=== PATIENT | female | born 1945 | race Caucasian/White ===

== ENCOUNTER 2024-06-29 09:21 | Emergency (ER) | payer MEDICARE, SELFPAY ==
--- NOTE | ~2024-06-29 | CT_ITS ---
EXAMINATION: CT lumbar spine wo con DATE: 06/29/2024 10:48 INDICATION: Left-sided low back pain. TECHNIQUE: Computed tomography (CT) of the lumbar spine was performed without intravenous contrast. A utomated exposure control and iterative reconstruction technique were employed. The dose-length produ ct was 1119.61 mGy-cm. COMPARISON: Lumbar spine MRI 12/25/2017 FINDINGS: There are surgical changes of the stomach. There is a 3.4 cm mass in right kidney containin g fat, consistent with an angiomyolipoma. There is a 3 mm stone in right kidney. There is a 2 mm ston e in left kidney. There is calcified atherosclerosis of the aorta and many of the other arteries. The re is 13 degrees dextroscoliosis of lumbar spine. There is 3 mm retrolisthesis of L2 on L3 and L3 on L4 and 4 mm anterolisthesis of L4 on L5. Vertebral body heights are normal. There is severely decreas ed disc height from T11-T12 through L2-L3 and moderately decreased disc height at L3-L4 and L4-L5. Th e following disc levels are specifically discussed: L1-L2: The disc is bulging. There is moderate bilateral facet joint osteoarthritis. There is mild vanessa ateral neural foraminal stenosis. There is mild central canal stenosis. L2-L3: The disc is bulging. There is mild bilateral facet joint osteoarthritis. There is mild right a nd moderate left neural foraminal stenosis. There is mild central canal stenosis. L3-L4: The disc is bulging. There is mild bilateral facet joint osteoarthritis. There is mild bilater al neural foraminal stenosis. There is mild central canal stenosis. L4-L5: The disc is bulging. There is severe bilateral facet joint osteoarthritis. There is moderate r ight and mild left neural foraminal stenosis. There is mild central canal stenosis. L5-S1: The disc is bulging. There is severe bilateral facet joint osteoarthritis. There is mild right neural foraminal stenosis. There is mild central canal stenosis. IMPRESSION: 1. Severe lumbar spondylosis. 2. Lumbar dextroscoliosis. Reviewed, dictated and finalized at location A.
[2024-06-29 09:21] VITALS: BP 178/69; PULSE 97; RESP 16; TEMP 36.8; O2SAT 96
--- NOTE | 2024-06-29 09:57 | ED.LOWEXIN ---
HPI - Extremity Injury (Lower) General Chief Complaint: Extremity Injury, Lower Stated Complaint: LLE pain Time Seen by Provider: 06/29/24 09:53 Source: patient Mode of arrival: ambulatory Limitations: no limitations History of Present Illness HPI Narrative: 78 year old presents with left lower leg pain. She has been having knee pain for some time and had xrays done at the end of March and has an appointment to establish with Dr Camacho /orthopedic surgery coming up in 1 week on Monday but Monday started having pain in her left lower back and buttock which travels down into the leg. No trauma or particular injury. No prior surgeries in tthis leg. Denies abdominal pain. Has Rx for Tramadol ER and IR at home and took a dose of Tramadol ER ta 5:40am. Also has Tylenol arthritis, last dose of this medicine at 8pm. No history of UTI, pyelonephritiis, or kidney stones. Has trialed ice. Denies dysuria or hematuria; some urgency and frequency. Related Data Allergies Allergy/AdvReac Type Severity Reaction Status Date / Time Sulfa (Sulfonamide Allergy Mild RASH Verified 12/01/16 11:04 Antibiotics) Penicillins Allergy Unknown Verified 12/11/14 10:14 sulfanilamide Allergy Unknown Verified 12/11/14 10:14 [facility] Family History Family History (Updated 06/17/16 @ 23:19 by DOCTOR UNKNOWN) Mother Carcinoma of colon Family history of coronary artery disease Family history of malignant neoplasm of breast in first degree relative Father Family history of coronary artery disease Social History Social History Smoking status: Never smoker Alcohol intake: current Exam Narrative: GENERAL: Well-appearing, well-nourished, and in no acute distress. Laying on right side. HEAD: Normocephalic, atraumatic. EYES: Non injected, non icteric ENT: Nares clear, no rhinorrhea or epistaxis. NECK: Supple. CHEST: Speaking in full sentences. No respiratory distress. HEART: Regular rate and rhythm. . ABDOMEN: Soft, nondistended. EXTREMITIES/BACK: No edema. No midline TTP of lumbar/sacral spine; no bony step offs. No paraspinal tenderness or spasm. Patient indicates pain is in left gluteus and throughout left thigh. Legs grossly symmetric. : No CVA tenderness. SKIN: Warm, dry, no rash. NEURO: No focal deficits. Alert and oriented x3. PSYCH: Normal mood and affect. Course Vital Signs Vital signs: Vital Signs Temperature 98.2 F 06/29/24 09:21 Pulse Rate 97 06/29/24 09:21 Respiratory Rate 16 06/29/24 09:21 Blood Pressure 178/69 H 06/29/24 09:21 Pulse Oximetry 96 06/29/24 09:21 Temperature 98.2 F 06/29/24 09:21 Pulse Rate 97 06/29/24 09:21 Respiratory Rate 16 06/29/24 09:21 Blood Pressure 178/69 H 06/29/24 09:21 Pulse Oximetry 96 06/29/24 09:21 MDM - Extremity Injury (Lower) MDM Narrative Medical decision making narrative: Patient presents with what had just been knee pain since March but is now left low back/buttock/leg pain. In the emergency department vital signs show patient is afebrile but with hypertension. Distribution of patient's symptoms is consistent with sciatic nerve distribution. She describes some urinary urgency/frequency and initially describes L flank pain but points to an area much lower on back and has no cva tenderness. In addition, UA unremarkable thus lower suspicion for pyelonephritis or kidney stone. No abdominal pain to suggest aortic/vascular. Afebrile and non toxic appearing thus low suspicion for spinal epidural abscess. Back has no deformities, external skin changes, or signs of trauma. No tenderness is noted on palpation of the spinous processes which are midline. Lumbar paraspinal muscles are not tender under without spasm. However, given age will obtain imaging. This is negative for acute process. Patient encouraged to continue to use multimodal pain strategy to subsequently allow for movement to perform ADLs and perform gentle stretching exercises. Patien
[2024-06-29 10:40] LABS: Add Urine Microscopic? NO; Appearance Urine Clear (Clear); Bilirubin Urine Negative (Negative); Blood Urine Negative (Negative); Color Urine Yellow (Yellow); Glucose Urine UA Negative (Negative); Ketones Urine Negative (Negative); Leukocyte Esterase Ur Negative LEU/UL (Negative); Nitrate Urine Negative (Negative); Protein Urine Negative (Negative); Specific Grav Ur 1.016 (1.001-1.035); pH Urine 5.5 (5.0-9.0)
[2024-06-29] MEDS: HYDROcodone/acetaminophen (*CRX) 5-325 MG TABLET 1 TAB PO (11:09)
[2024-06-29] MEDS: KETOROLAC 30 MG/ML VIAL (*BKC) 15 MG IM (12:06)
[2024-06-29] MEDS: LIDOCAINE 5% PATCH 1 PATCH TRANSDERM (12:07)
== END 2024-06-29 12:15 | disposition home or self-care (01) ==
PROVIDERS: Emergency Provider Student in an Organized Health Care Education/Training Program; PCP Internal Medicine
DX: M54.42 Lumbago with sciatica, left side (principal); M47.816 Spondylosis without myelopathy or radiculopathy, lumbar region; M41.86 Other forms of scoliosis, lumbar region
CPT/HCPCS: 72131; 81003; 96372; 99284; A9270; J1885

== ENCOUNTER 2024-07-10 09:42 | Outpatient (CLI) | payer MEDICARE, SELFPAY ==
--- NOTE | ~2024-07-10 | XR_ITS ---
XR shoulder RT min 2V Ordering provider: Ciara Corona, [employer] History: . R shoulder pain for 2 weeks no injury . Comparison: September 15, 2016 FINDINGS: BONES: No acute fracture or dislocation. JOINT SPACES: The acromioclavicular joint is normal. The glenohumeral joint is normal. SOFT TISSUES: Normal. IMPRESSION: No acute osseous abnormality right shoulder. Reviewed, dictated and finalized at location A.
== END 2024-07-10 09:43 ==
PROVIDERS: PCP Internal Medicine; Visit Provider Nurse Practitioner Family
DX: M25.511 Pain in right shoulder (principal)
CPT/HCPCS: 73030

== ENCOUNTER 2024-09-11 08:58 | Observation (INO) | payer MEDICARE, SELFPAY ==
[2024-09-11] VITALS (12 sets, daily range): BP systolic 131–156; BP diastolic 55–68; PULSE 83–99; RESP 16–20; TEMP 36.6–36.9; O2SAT 95–98; BMI 34.0
--- NOTE | ~2024-09-11 | CT_ITS ---
CTA chest PE protocol Ordering provider: Eva Robertson PA-C History: 79 years Female with . sob, pulmonary nodule . Comparison: None. Technique: CT angiogram chest was performed following timed intravenous injection of contrast. Thin s lice axial images and reformatted coronal images were obtained. Three dimensional reformatted images of the chest were also obtained using a [employer] workstation. . Automated exposure control and iterati ve reconstruction technique were employed. The dose-length product was 329.53 mGy-cm. 100 mL Omnipaqu e 350 was given. Findings: PULMONARY ARTERIES: Filling defects are seen in the right and left main branches of the pulmonary art [place] suggestive of pulmonary embolism. No definite right ventricular strain is noted.. VISUALIZED THORACIC INLET: Normal. MEDIASTINUM: Aorta/coronary arteries: Mild atheromatous disease. Heart/other: The heart is not enlarged. Lymph nodes: No mediastinal or hilar adenopathy. LUNGS: Nodule is seen in the right lower lobe measuring 1.1. Another one is also seen measuring 1.1 cm. 3 mo nths follow-up or PET scan is advised. Focal area of groundglass appearance is seen in the left lower lobe which may be a nodule or focal pneumonia. Follow-up advised. Infarct cannot be excluded. Tiny f ocal area of groundglass appearance seen in the right upper lobe. No infiltrates or effusions. No pne umothorax. VISUALIZED UPPER ABDOMEN: Fat containing a rounded lesion is seen in the right kidney upper pole debra uring 3.7 x 3.9 CNM. This may represent an angiomyolipoma. Postoperative changes in the stomach. Othe rwise, the visualized upper abdomen is normal. MUSCULOSKELETAL: Soft tissues: The superficial soft tissues are normal. Bones: Age appropriate degenerative changes of the spine. IMPRESSION: 1. Pulmonary embolism with thrombi in the distal main branches, segmental and subsegmental branches. No definite evidence of right ventricular strain. 2. Nodules in the right lower lobe. Follow-up CT in 3 months or PET scan is advised. 3. Groundglass area in the left lower lobe. Follow-up advised. 4. Fat-containing lesion in the right kidney which may indicate angiomyolipoma follow-up advised. Physician: Eva Robertson PA-C Was notified with the result of the patient at 11:28 AM on September 11, 2024. Reviewed, dictated and finalized at location A. IMPRESSION: 1. Pulmonary embolism with thrombi in the distal main branches, segmental and subsegmental branches. No definite evidence of right ventricular strain. 2. Nodules in the right lower lobe. Follow-up CT in 3 months or PET scan is ad vised. 3. Groundglass area in the left lower lobe. Follow-up advised. 4. Fat-containing lesion in the right kidney which may indicate angiomyolipoma follow-up advised. Physician: Eva Robertson PA-C Was notified with the result of the patient at 11:28 AM on September 11, 2024.
--- NOTE | ~2024-09-11 | XR_ITS ---
CHEST RADIOGRAPH, PA AND LATERAL CLINICAL HISTORY: sob, SWELLING OF LEGS . COMPARISON: None available TECHNIQUE: PA and lateral views of the chest. FINDINGS The cardiomediastinal silhouette is unremarkable. Indeterminate nodularity is detected within the right mid to lower lung field for which cross-section al imaging (noncontrast enhanced CT examination of the chest) is suggested for further evaluation. The remainder of the lungs are clear. Visualized osseous structures and soft tissues are unremarkable. IMPRESSION: Indeterminate nodularity is detected within the right mid to lower lung field for which cross-section al imaging (noncontrast enhanced CT examination of the chest) is suggested for further evaluation. Reviewed, dictated and finalized at location A. IMPRESSION: Indeterminate nodularity is detected within the right mid to lower lung field f or which cross-sectional imaging (noncontrast enhanced CT examination of the ch est) is suggested for further evaluation.
--- NOTE | ~2024-09-11 | US_ITS ---
EXAMINATION: US venous doppler [facility] DATE: 09/11/2024 10:39 INDICATION: Edema, bilateral leg swelling TECHNIQUE: Grayscale ultrasound images without and with compression and Doppler ultrasound images of the bilateral lower extremity veins were obtained. COMPARISON: None. FINDINGS: The visualized portions of right common femoral vein, profunda (deep) femoral vein, and femoral vein are patent and compressible. Greater saphenous vein outflow is patent. Noncompressibility and absence of flow is detected within the right popliteal, posterior tibial and p eroneal veins. Augmentation was deferred. The visualized portions of left common femoral vein, profunda femoral vein, femoral vein, popliteal v ein, peroneal veins, posterior tibial veins, and greater saphenous vein outflow are patent. IMPRESSION: 1. Noncompressibility and absence of flow within the right popliteal, posterior tibial and peroneal v eins, as detailed above. Findings discussed with BRDALY Velazquez caring for the patient in the emergency Department at 1045 o n 09/11/2024 Reviewed, dictated and finalized at location A. IMPRESSION: 1. Noncompressibility and absence of flow within the right popliteal, posterior tibial and peroneal veins, as detailed above. Findings discussed with BRADLY Velazquez caring for the patient in the emergenc y Department at 1045 on 09/11/2024
--- NOTE | 2024-09-11 09:07 | ECG_ITS ---
Test Date: 2024-09-11 09:10:53 Measurements Intervals [place] Rate: 88 P: 46 CT: 168 QRS: 2 QRSD: 86 T: 64 QT: 332 QTc: 402 Interpretive Statements SINUS RHYTHM ARTIFACT LIMITS INTERPRETATION CANNOT RULE OUT ANTEROSEPTAL INFARCTION, LIKELY OLD ABNORMAL ECG No previous ECG available for comparison Electronically Signed On 09-11-2024 10:24:35 CDT by Samy Macdonald M.D.
--- NOTE | 2024-09-11 09:16 | ED_ITS ---
HPI - SOB/Dyspnea General Chief Complaint: Shortness of Breath/Dyspnea <Eva Robertson PA-C - Last Filed: 09/11/24 11:51> Stated Complaint: sob, edema <SILVESTRE Mak Last Filed: 09/11/24 11:51> Time Seen by Provider: 09/11/24 09:12 <SILVESTRE Mak Last Filed: 09/11/24 11:51> Source: patient <SILVESTRE Mak Last Filed: 09/11/24 11:51> Mode of arrival: ambulatory <SILVESTRE Mak Last Filed: 09/11/24 11:51> Limitations: no limitations <SILVESTRE aMk Last Filed: 09/11/24 11:51> History of Present Illness HPI Narrative: This is an 79-year-old female that presents to the emergency department for shortness of breath. Reports she has had exertional shortness of breath over the last week. She has also had swelling in her legs. No known history of heart failure or CAD. Patient reports she travel to [place] a couple of weeks ago. Denies chest pain. <SILVESTRE Mak Last Filed: 09/11/24 11:51> Related Data Home Medications: Home Medications Medication Instructions Recorded Confirmed Adults Multivitamin 09/11/24 Calcium 600 with Vitamin D3 09/11/24 Nf Betahistine 8 mg QID 09/11/24 09/11/24 Vitamin B-12 09/11/24 Vitamin D3 09/11/24 allopurinol 100 mg tablet 100 mg DAILY 09/11/24 09/11/24 amlodipine 5 mg tablet mg 09/11/24 atorvastatin 10 mg tablet 10 mg 09/11/24 buspirone 5 mg tablet mg 09/11/24 famotidine 20 mg tablet mg 09/11/24 levothyroxine 75 mcg tablet 75 mcg 09/11/24 tramadol 200 mg tablet,extended 200 mg PO 09/11/24 release 24 hr tramadol 50 mg tablet 50 mg 09/11/24 triamterene 37.5 cap 09/11/24 mg-hydrochlorothiazide 25 mg capsule <SILVESTRE Mak Last Filed: 09/11/24 11:51> Allergies/Adverse Reactions: Allergies Allergy/AdvReac Type Severity Reaction Status Date / Time Sulfa (Sulfonamide Allergy Mild RASH Verified 12/01/16 11:04 Antibiotics) Penicillins Allergy Unknown Verified 12/11/14 10:14 sulfanilamide Allergy Unknown Verified 12/11/14 10:14 <Eva Robertson PA-C - Last Filed: 09/11/24 11:51> Review of Systems Review of Systems: CONSTITUTIONAL: Denies fever CARDIOVASCULAR: Reports edema. Denies chest pain RESPIRATORY: Reports dyspnea. <Eva Robertson PA-C - Last Filed: 09/11/24 11:51> All systems reviewed & are unremarkable except as noted in HPI and below <Eva Robertson PA-C - Last Filed: 09/11/24 11:51> [facility] Past Medical History Medical History: Medical History Anemia, unspecified Duodenal stenosis Dyskinesia of esophagus Essential (primary) hypertension Gastroesophageal reflux disease Gastrojejunal ulcer Gout, unspecified Hypothyroidism, unspecified Menieres disease Mixed hyperlipidemia Osteoarthritis <Eva Robertson PA-C - Last Filed: 09/11/24 11:51> Surgical History Surgical History: Surgical History History of cholecystectomy History of esophagogastroduodenoscopy History of gastric bypass History of tonsillectomy History of tubal ligation History of uvulectomy <Eva Robertson PA-C - Last Filed: 09/11/24 11:51> Family History Family History: Family History Mother Carcinoma of colon Family history of coronary artery disease Family history of malignant neoplasm of breast in first degree relative Father Family history of coronary artery disease <Eva Robertson PA-C - Last Filed: 09/11/24 11:51> Social History Social History: Social History (Updated 09/11/24 @ 16:36 by Gris Hillman PA-C) Social History: Surrogate medical decision maker: Moisés Kate, son. Code status: Full code. Smoking status: Former smoker Tobacco type: cigarettes Smoking end date: 10/20/94 Alcohol intake: current Drinks per week: 0 Substance use: never Substance use type: does not use Do You Feel Safe in your Home?: Yes Lack of Transportation: No Lack of Food: Never True Current Housing: I Have Housing Concerned About Future Housing: No Difficulty Paying Gas/Electric Bills: No Difficulty Paying for Meds: No Currently Unemployed: No Education: Master's Degree or Higher Difficulty w/ Childcare or Family Care: No Additional living arrangements comments: The patient lives in [place]. 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 Spiritual care concerns: No <Eva Robertson PA-C - Last Filed: 09/11/24 11:51> Exam Narrative: GENERAL: Well-appearing, well-nourished, and in no acute distress. HEAD: Normocephalic, atraumatic. EYES: EOMI. ENT: Nares clear, no rhinorrhea or epistaxis. Mucous membranes moist. Oropharynx without tonsillar hypertrophy exudate or other lesions. NECK: Supple. No JVD CHEST: Clear to auscultation. No respiratory distress. No wheezes rales or rhonchi HEART: Regular rate and rhythm. No murmur heard. Normal peripheral pulses. EXTREMITIES: Normal range of motion. 2+ pitting edema to the bilateral lower extremities. Normal DP pulses SKIN: Warm, dry, no rash. NEURO: No focal deficits. Alert and oriented x3. PSYCH: Normal mood and affect <Eva Robertson PA-C - Last Filed: 09/11/24 11:51> Course Course Emergency Course: Patient was updated on her workup and recommendation for admission. <Eva Robertson PA-C - Last Filed: 09/11/24 11:51> LEAD QUALITY CONTROL TECHNICIAN/PA Physician Supervision This visit was performed by both a physician and an APC. I performed all aspects of the MDM as documented. <Franco Husain MD - Last Filed: 09/11/24 18:15> Consultations Consultation #1: Spoke with hospitalist about patient and workup who accepts admission <Eva Robertson PA-C - Last Filed: 09/11/24 11:51> Date: 09/11/24 <Eva Robertson PA-C - Last Filed: 09/11/24 11:51> Vital Signs Vital signs: Vital Signs Temperature 98 F 09/11/24 09:07 Pulse Rate 91 09/11/24 09:07 Respiratory Rate 20 09/11/24 09:07 Blood Pressure 149/64 H 09/11/24 09:07 Pulse Oximetry 97 09/11/24 09:07 Temperature 98.3 F 09/11/24 15:52 Pulse Rate 99 09/11/24 16:00 Respiratory Rate 18 09/11/24 15:52 Blood Pressure 135/55 L 09/11/24 15:52 Pulse Oximetry 96 09/11/24 15:52 Oxygen Delivery Room Air 09/11/24 09:09 <Eva Robertson PA-C - Last Filed: 09/11/24 11:51> Vital Signs Temperature 98 F 09/11/24 09:07 Pulse Rate 91 09/11/24 09:07 Respiratory Rate 20 09/11/24 09:07 Blood Pressure 149/64 H 09/11/24 09:07 Pulse Oximetry 97 09/11/24 09:07 Temperature 98.3 F 09/11/24 15:52 Pulse Rate 99 09/11/24 16:00 Respiratory Rate 18 09/11/24 15:52 Blood Pressure 135/55 L 09/11/24 15:52 Pulse Oximetry 96 09/11/24 15:52 Oxygen Delivery Room Air 09/11/24 09:09 <Franco Husain MD - Last Filed: 09/11/24 18:15> MDM - SOB/Dyspnea MDM Narrative Medical decision making narrative: Patient presents to the emergency department for shortness of breath and lower extremity edema. She is afebrile and nontoxic appearing. Oxygen saturation is normal on room air. She is not tachycardic. Patient does report recent travel to [place]. CBC and metabolic panel without concerning findings. Urine without evidence of infection. Chest x-ray shows indeterminate nodularity. BNP 2120. EKG without acute ST changes. Her baseline troponin is negative. She does not endorse any chest pain. Right lower extremity venous Doppler with evidence of DVT in the popliteal, posterior tibial peroneal veins. CTA chest obtained. Shows pulmonary embolism in the distal main branches, seg mental, and subsegmental branches. No evidence of heart strain. Patient was updated on her workup and recommendation for admission. Started on heparin drip. Spoke with hospitalist about patient and workup who accepts admission <Eva Robertson PA-C - Last Filed: 09/11/24 11:51> Differential Diagnosis Differential diagnosis: Likely congestive heart failure and pulmonary embolism <Eva Robertson PA-C - Last Filed: 09/11/24 11:51> Lab Data Attestation: I reviewed the patient's lab results. <Eva Robertson PA-C - Last Filed: 09/11/24 11:51> Result diagrams: 09/11/24 09:15 09/11/24 09:15 <Eva Robertson PA-C - Last Filed: 09/11/24 11:51> Labs: Lab Results 09/11/24 09/11/24 Range/Units 09:15 09:35 WBC 9.3 (4.5-10.0) K/mm3 RBC 3.77 L (4.2-5.4) M/mm3 Hgb 12.0 (12.0-15.0) g/dL Hct 38.0 (37.0-47.0) % MCV 100.8 H (80-100) fl MCH 31.8 (26-34) pg MCHC 31.6 L (32-36) g/dl RDW 14.6 H (11.5-14.5) % Plt Count 482 H (150-375) k/mm3 MPV 8.8 (7.4-10.4) fl Immature Gran % (Auto) 0.4 (0-0.5) % Neut % (Auto) 67.9 (45.5-73.1) % Lymph % (Auto) 21.3 (18.3-44.2) % [place] % (Auto) 8.3 (2.6-8.5) % Eos % (Auto) 1.9 (0-4.4) % Baso % (Auto) 0.2 (0.2-1.2) % Lymph # (Auto) 1.98 (0.9-3.2) K/mm3 [place] # (Auto) 0.8 H (0.1-0.6) K/mm3 Eos # (Auto) 0.2 (0-0.3) K/mm3 Baso # (Auto) 0.0 (0.0-0.1) K/mm3 Abs Immat Gran (auto) 0.04 H (0.00-0.031) K/mm3 Absolute Neuts (auto) 6.3 (1.3-6.7) K/mm3 Absolute Nucleated RBC 0.000 (0.0-0.012) K/mm3 Nucleated RBC % 0.0 (0.0-0.2) % PT 12.2 (11.1-14.7) Seconds INR 0.9 APTT 31.7 (22.3-36.8) Seconds Sodium 138 (137-145) mmol/L Potassium 4.0 (3.4-5.0) mmol/L Chloride 103 (98-107) mmol/L Carbon Dioxide 26 (22-30) mmol/L Anion Gap 9 (4-12) mmol/L BUN 13 (7-17) mg/dL Creatinine 1.00 (0.7-1.0) mg/dL Estim Creat Clear Calc 45 ml/min Estimated GFR 53 L (59 - ) Glucose 87 (65-110) mg/dL Calcium 9.4 (8.4-10.2) mg/dL Total Bilirubin 0.7 (0.2-1.3) mg/dL AST 30 (14-36) U/L ALT 20 (6-35) U/L Alkaline Phosphatase 143 H (38-126) U/L Troponin I 0.028 (0.000-0.034) ng/mL NT-Pro-B Natriuret Pep 2120 H (19.9-100) pg/mL Total Protein 8.0 (6.3-8.2) g/dL Albumin 4.1 (3.5-5.1) g/dL Urine Color Yellow (Yellow) Urine Appearance Clear (Clear) Urine pH 7.5 (5.0-9.0) Ur Specific [place] 1.010 (1.001-1.035) Urine Protein Negative (Negative) mg/dL Urine Glucose (UA) Negative (Negative) mg/dL Urine Ketones Negative (Negative) mg/dL Ur Blood (Man) Negative (Negative) Urine Nitrate Negative (Negative) Urine Bilirubin Negative (Negative) Urine Urobilinogen 1.0 (<2.0) mg/dL Leukocyte Esterase Rfl Trace H (Negative) DAJA/UL Urine RBC 0-2 (0-2) /hpf Urine WBC 0-5 (0-3) /hpf Ur Squamous Epith Cells None seen (Few) /hpf Urine Bacteria None seen /hpf Urine Casts 0-2 <Eva Robertson PA-C - Last Filed: 09/11/24 11:51> Lab Results 09/11/24 09/11/24 Range/Units 09:15 09:35 WBC 9.3 (4.5-10.0) K/mm3 RBC 3.77 L (4.2-5.4) M/mm3 Hgb 12.0 (12.0-15.0) g/dL Hct 38.0 (37.0-47.0) % MCV 100.8 H (80-100) fl MCH 31.8 (26-34) pg MCHC 31.6 L (32-36) g/dl RDW 14.6 H (11.5-14.5) % Plt Count 482 H (150-375) k/mm3 MPV 8.8 (7.4-10.4) fl Immature Gran % (Auto) 0.4 (0-0.5) % Neut % (Auto) 67.9 (45.5-73.1) % Lymph % (Auto) 21.3 (18.3-44.2) % [place] % (Auto) 8.3 (2.6-8.5) % Eos % (Auto) 1.9 (0-4.4) % Baso % (Auto) 0.2 (0.2-1.2) % Lymph # (Auto) 1.98 (0.9-3.2) K/mm3 [place] # (Auto) 0.8 H (0.1-0.6) K/mm3 Eos # (Auto) 0.2 (0-0.3) K/mm3 Baso # (Auto) 0.0 (0.0-0.1) K/mm3 Abs Immat Gran (auto) 0.04 H (0.00-0.031) K/mm3 Absolute Neuts (auto) 6.3 (1.3-6.7) K/mm3 Absolute Nucleated RBC 0.000 (0.0-0.012) K/mm3 Nucleated RBC % 0.0 (0.0-0.2) % PT 12.2 (11.1-14.7) Seconds INR 0.9 APTT 31.7 (22.3-36.8) Seconds Sodium 138 (137-145) mmol/L Potassium 4.0 (3.4-5.0) mmol/L Chloride 103 (98-107) mmol/L Carbon Dioxide 26 (22-30) mmol/L Anion Gap 9 (4-12) mmol/L BUN 13 (7-17) mg/dL Creatinine 1.00 (0.7-1.0) mg/dL Estim Creat Clear Calc 45 ml/min Estimated GFR 53 L (59 - ) Glucose 87 (65-110) mg/dL Calcium 9.4 (8.4-10.2) mg/dL Total Bilirubin 0.7 (0.2-1.3) mg/dL AST 30 (14-36) U/L ALT 20 (6-35) U/L Alkaline Phosphatase 143 H (38-126) U/L Troponin I 0.028 (0.000-0.034) ng/mL NT-Pro-B Natriuret Pep 2120 H (19.9-100) pg/mL Total Protein 8.0 (6.3-8.2) g/dL Albumin 4.1 (3.5-5.1) g/dL Urine Color Yellow (Yellow) Urine Appearance Clear (Clear) Urine pH 7.5 (5.0-9.0) Ur Specific [place] 1.010 (1.001-1.035) Urine Protein Negative (Negative) mg/dL Urine Glucose (UA) Negative (Negative) mg/dL Urine Ketones Negative (Negative) mg/dL Ur Blood (Man) Negative (Negative) Urine Nitrate Negative (Negative) Urine Bilirubin Negative (Negative) Urine Urobilinogen 1.0 (<2.0) mg/dL Leukocyte Esterase Rfl Trace H (Negative) DAJA/UL Urine RBC 0-2 (0-2) /hpf Urine WBC 0-5 (0-3) /hpf Ur Squamous Epith Cells None seen (Few) /hpf Urine Bacteria None seen /hpf Urine Casts 0-2 <Franco Husain MD - Last Filed: 09/11/24 18:15> Imaging Data Radiologist's impression: ITS Impressions Chest X-Ray 09/11/24 09:52 IMPRESSION: Indeterminate nodularity is detected within the right mid to lower lung field for which cross-sectional imaging (noncontrast enhanced CT examination of the chest) is suggested for further evaluation. Venous Doppler Study 09/11/24 10:44 IMPRESSION: 1. Noncompressibility and absence of flow within the right popliteal, posterior tibial and peroneal veins, as detailed above. Findings discussed with BRADLY Velazquez caring for the patient in the emergency Department at 1045 on 09/11/2024 Chest CTA 09/11/24 10:56 IMPRESSION: 1. Pulmonary embolism with thrombi in the distal main branches, segmental and subsegmental branches. No definite evidence of right ventricular strain. 2. Nodules in the right lower lobe. Follow-up CT in 3 months or PET scan is advised. 3. Groundglass area in the left lower lobe. Follow-up advised. 4. Fat-containing lesion in the right kidney which may indicate angiomyolipoma follow-up advised. Physician: Eva Robertson PA-C Was notified with the result of the patient at 11:28 AM on September 11, 2024. <Eva Robertson PA-C - Last Filed: 09/11/24 11:51> ECG Data EKG #1: ECG completion date: 09/11/24 <Eva Robertson PA-C - Last Filed: 09/11/24 11:51> EKG Interpretation: normal rate, sinus rhythm, no ST changes, normal QT and other (baseline artifact) <Eva Robertson PA-C - Last Filed: 09/11/24 11:51> Critical Care Time Critical Care Time Critical Care Time: Yes <Eva Robertson PA-C - Last Filed: 09/11/24 11:51> Total Critical Care Time: 35 <Eva Robertson PA-C - Last Filed: 09/11/24 11:51> Discharge Plan Discharge Clinical Impression: Pulmonary embolism Qualifiers: Pulmonary embolism type: multiple subsegmental (without acute cor pulmonale) Qualified Code(s): I26.94 - Multiple subsegmental thrombotic pulmonary emboli without acute cor pulmonale DVT (deep venous thrombosis) Qualifiers: DVT location: lower extremity Affected thrombotic vein of extremity: popliteal Chronicity: acute Laterality: right Qualified Code(s): I82.431 - Acute embolism and thrombosis of right popliteal vein <Eva Robertson PA-C - Last Filed: 09/11/24 11:51> Patient Disposition: Still a Patient <Eva Robertson PA-C - Last Filed: 09/11/24 11:51> Condition: Serious <Eva Robertson PA-C - Last Filed: 09/11/24 11:51>
[2024-09-11 09:26] LABS: Basophils Percent Auto 0.2 % (0.2-1.2); Eosinophils Absolute Auto 0.2 K/mm3 (0-0.3); Eosinophils Percent Auto 1.9 % (0-4.4); Immature Granulocyte Absolute 0.04 K/mm3 (0.00-0.031); Immature Granulocyte Percent A 0.4 % (0-0.5); Lymphocytes Absolute Auto 1.98 K/mm3 (0.9-3.2); Lymphocytes Percent Auto 21.3 % (18.3-44.2); Mean Corpuscular HGB Conc 31.6 g/dl (32-36); Mean Corpuscular Hemoglobin 31.8 pg (26-34); Mean Corpuscular Volume 100.8 fl (80-100); Mean Platelet Volume 8.8 fl (7.4-10.4); Monocytes Absolute Auto 0.8 K/mm3 (0.1-0.6); Monocytes Percent Auto 8.3 % (2.6-8.5); Neutrophils Absolute Auto 6.3 K/mm3 (1.3-6.7); Neutrophils Percent Auto 67.9 % (45.5-73.1); Platelet Count Result 482 k/mm3 (150-375); Red Blood Count 3.77 M/mm3 (4.2-5.4); Red Cell Distribution Width 14.6 % (11.5-14.5); White Blood Count 9.3 K/mm3 (4.5-10.0)
[2024-09-11 09:35] LABS: Alanine Aminotransferase 20 U/L (6-35); Albumin Level 4.1 g/dL (3.5-5.1); Alkaline Phosphatase 143 U/L (38-126); Anion Gap 9 mmol/L (4-12); Aspartate Amino Transferase 30 U/L (14-36); Bilirubin,Total 0.7 mg/dL (0.2-1.3); Blood Urea Nitrogen 13 mg/dL (7-17); Calcium 9.4 mg/dL (8.4-10.2); Carbon Dioxide 26 mmol/L (22-30); Chloride 103 mmol/L (98-107); Estimated CRCL calculation 45 ml/min; Estimated Glomerular Filt Rate 53; Glucose 87 mg/dL (65-110); Sodium 138 mmol/L (137-145)
[2024-09-11 09:36] LABS: INR 0.9; Prothrombin Time 12.2 Seconds (11.1-14.7)
[2024-09-11 09:37] LABS: Partial Thromboplastin Time 31.7 Seconds (22.3-36.8)
[2024-09-11 09:46] LABS: NT Pro B Type Natriuretic Pept 2120 pg/mL (19.9-100); Troponin I 0.028 ng/mL (0.000-0.034)
[2024-09-11 09:46] LABS: Add Urine Microscopic? YES; Appearance Urine Clear (Clear); Bacteria Urine None Seen /hpf; Bilirubin Urine Negative (Negative); Blood Urine Negative (Negative); Color Urine Yellow (Yellow); Glucose Urine UA Negative (Negative); Ketones Urine Negative (Negative); Leukocyte Esterase Ur Trace LEU/UL (Negative); Nitrate Urine Negative (Negative); Non Pathogenic Casts 0-2; Protein Urine Negative (Negative); RBC Urine 0-2 /hpf (0-2); Squamous Epithelial Cell Urine None Seen /hpf (Few); WBC Urine 0-5 /hpf (0-3); pH Urine 7.5 (5.0-9.0)
[2024-09-11] MEDS: HEPARIN SOD/D5W 100 UNITS/ML 25,000 UNITS/250 ML BAG 13 UNITS IV CONT (12:03)
[2024-09-11] MEDS: HEPARIN SODIUM 5,000 UNITS/ML VIAL 5500 UNITS IV PUSH (12:04)
--- NOTE | 2024-09-11 12:10 | ECHO_ITS ---
Patient Info Name: An Kate Age: 79 years : 1945 Gender: Female Ht: 65 in Wt: 205 lbs BSA: 2.10 m2 HR: 92 bpm BP: 144 / 65 mmHg Heart Rhythm: Sinus Rhythm Technical Quality: Fair Exam Date: 09/11/2024 2:07 PM Exam Location: Echo Lab Patient Status: Outpatient Admit Date: 09/11/2024 Staff Ordering Physician: Gris Hillman PA-C Chip Applying Machine Tender: Amando Burnett RDCS Attending Provider: Marvin Olvera MD Referring Physician: Rafy DOMINGUEZ; Exam Type: CA echo dop color flow w con Study Info Indications I26.01 - Septic pulmonary embolism with acute cor pulmonale Complete two-dimensional, color flow and Doppler transthoracic echocardiogram is performed with contrast to opacify the left ventricle and to improve the deliniation of the left ventricle endocardial borders. Contrast/Agitated Saline Contrast/Ag. Saline: Definity Amount: 2.00 ml Existing IV Access: Yes IV Access Condition: patent with no signs of infiltration Summary 1. Left ventricular chamber dimension is normal. 2. Left ventricular systolic function is normal, estimated at 65-70%. 3. There is mildly increased left ventricular wall thickness. 4. The left ventricular diastolic function is grade I diastolic dysfunction. 5. Right ventricular chamber dimension is normal. 6. Right ventricular systolic function is normal. 7. Left atrial chamber dimension is mildly enlarged. 8. There is severe aortic valve calcification. 9. There is moderate aortic valve stenosis. 10. There is mild mitral valve regurgitation. 11. There is mild to moderate tricuspid valve regurgitation. 12. Pulmonary hypertension, estimated pulmonary arterial systolic pressure is 54 mmHg. Left Ventricle Left ventricular chamber dimension is normal. Left ventricular systolic function is normal, estimated at 65-70%. There is mildly increased left ventricular wall thickness. The left ventricular diastolic function is grade I diastolic dysfunction. Right Ventricle Right ventricular chamber dimension is normal. Right ventricular systolic function is normal. Left Atria Left atrial chamber dimension is mildly enlarged. Right Atria Right atrial chamber dimension is normal. Atrial Septum Intact interatrial septum visualized by color flow imaging. Aortic Valve The aortic valve is probable trileaflet. There is moderate aortic valve stenosis. There is no aortic valve regurgitation. There is severe aortic valve calcification. Pulmonic Valve The pulmonic valve is not well visualized. There is no pulmonic regurgitation. Mitral Valve There is mild mitral valve regurgitation. The mitral valve annulus is mildly calcified. Tricuspid Valve There is mild to moderate tricuspid valve regurgitation. Pulmonary hypertension, estimated pulmonary arterial systolic pressure is 54 mmHg. Pericardium/Pleural There is no pericardial effusion. Inferior Vena Cava Normal inferior vena cava with <50% collapse upon inspiration consistent with elevated right atrial pressure, 8 mmHg. Aorta The aortic root size at the sinus of Valsalva is normal. Left Ventricular Outflow Tract Name Value Normal LVOT Doppler LVOT Peak Gradient 7 mmHg LVOT Mean Gradient 5 mmHg LVOT VTI 29.29 cm LVOT VTI/AV VTI Ratio 0.40 Pulmonic Valve Name Value Normal PV Doppler PV Peak Gradient 4 mmHg Mitral Valve Name Value Normal MV Doppler MV Decel [place] 457.31 cm/s2 MV PHT 0 s MV Area (PHT) 3.98 cm2 4.00-5.00 MV Diastolic Function MV E Peak Velocity 87.25 cm/s MV A Peak Velocity 134.74 cm/s MV E/A 0.65 MV Decel Time 0 s Tricuspid Valve Name Value Normal TV Regurgitation Doppler TR Peak Velocity 337.40 cm/s TR Peak Gradient 36 mmHg Estimated PAP/RSVP RA Pressure 8 mmHg <=5 PA Systolic Pressure 54 mmHg <36 RV Systolic Pressure 54 mmHg <36 Aorta Name Value Normal Ascending Aorta Ao Root Diameter (MM) 2.51 cm Ao Root Diam Index (MM) 1.20 cm/m2 Aortic Valve Name Value Normal AV Doppler AV Peak Velocity 341.09 cm/s AV Peak Gradient 37 mmHg AV Mean Gradient 20 mmHg AV VTI 72.96 cm Ventricles Name Value Normal LV Dimensions 2D/MM IVS Diastolic Thickness (2D) 1.20 cm 0.60-1.00 IVS Diastole Thickness (MM) 0.97 cm 0.60-0.90 LVID Diastole (2D) 3.90 cm 3.80-5.20 LVID Diastole (MM) 5.32 cm 3.80-5.20 LVIW Diastolic Thickness (2D) 1.01 cm 0.60-0.90 LVIW Diastolic Thickness (MM) 0.81 cm 0.60-0.90 LVID Systole (2D) 2.21 cm 2.20-3.50 LVID Systole (MM) 3.30 cm 2.20-3.50 LV Mass (2D Cubed) 141.02 g 67.00-162.00 LV Mass Index (2D Cubed) 0.01 g/cm2 0.00-0.01 Relative Wall Thickness (2D) 0.51 LV Mass (MM Cubed) 173.82 g 67.00-162.00 LV Mass Index (MM Cubed) 0.01 g/cm2 0.00-0.01 Relative Wall Thickness (MM) 0.30 LV Fractional Shortening/Ejection Fraction 2D/MM LV Fractional Shortening (2D) 44 % 27-45 LV Fractional Shortening (MM) 38 % 27-45 LV EF (MM Teicholz) 68 % 54-74 LV EF (2D Teicholz) 75 % 54-74 LV Diastolic Volume (4C MOD) 91.22 ml LV EF (4C MOD) 74 % LV Diastolic Volume (2C MOD) 93.33 ml LV EF (2C MOD) 78 % LV Diastolic Volume (BP MOD) 95.15 ml 46.00-106.00 LV Diastolic Volume Index (BP MOD) 0.05 l/m2 0.03-0.06 LV Systolic Volume (BP MOD) 22.99 ml 14.00-42.00 LV Systolic Volume Index (BP MOD) 0.01 l/m2 0.01-0.02 LV EF (BP MOD) 76 % 54-74 LV Diastolic Length (4C) 8.39 cm LV Systolic Length (4C) 6.28 cm LV Stroke Volume (4C MOD) 67.46 ml Atria Name Value Normal LA Dimensions LA Dimension (MM) 4.19 cm 2.70-3.80 LA Volume (4C A-L) 63.46 ml LA Volume (BP A-L) 48.44 ml RA Dimensions RA Area (4C) 16.42 cm2 <=18.00 Report Signatures
--- NOTE | 2024-09-11 12:10 | PM.IMHP ---
H&P: HPI History of Present Illness Date/Time: 09/11/24 12:10 Chief Complaint: Shortness of breath. Narrative: This is an 79-year-old female with history of hypertension, hyperlipidemia, hypothyroidism, Meniere's disease, gastroesophageal reflux disease, peptic ulcers, and gout who presented to the emergency department to the emergency department via private vehicle for evaluation of shortness of breath. The patient provides the following history. Last month she traveled to [place] and returned home on 08/21/2024. She noticed that she had a little bit of swelling in her legs after the trip which she blamed on not wearing her compression stockings as per usual. Sometime last week she noticed that her right lower leg felt warm and not long thereafter she developed dyspnea with exertion. It is to the point where she has to stop frequently to catch her breath when out running errands. She denies syncope, near syncope, chest pain, pleuritic pain, palpitations, calf pain, and sweats. No personal history of venous thromboembolism. She denies hormone use and has no history of malignancy. In the ED: She was afebrile on arrival with stable blood pressures and an SpO2 in the upper 90s on room air. CMP and CBC were pretty unremarkable. ProBNP was 2120 and troponin was 0.028. CTA of the chest showed pulmonary embolism at with thrombi in the distal main branches, segmental, and subsegmental branches with no definite evidence of right ventricular strain and nodules in the right lower lobe. Lower extremity venous Doppler ultrasounds showed DVTs in the right lower leg. EKG showed sinus rhythm with artifact, cannot rule out anteroseptal infarction, likely old. She was started on a heparin drip and is being admitted in this setting. Review of Systems Review of Systems: 12 systems were reviewed and are negative except for as per HPI. [facility] Past Medical History Medical History Anemia, unspecified Duodenal stenosis Dyskinesia of esophagus Essential (primary) hypertension Gastroesophageal reflux disease Gastrojejunal ulcer Gout, unspecified Hypothyroidism, unspecified Menieres disease Mixed hyperlipidemia Osteoarthritis Surgical History Surgical History History of cholecystectomy History of esophagogastroduodenoscopy History of gastric bypass History of tonsillectomy History of tubal ligation History of uvulectomy Family History Family History Mother Carcinoma of colon Family history of coronary artery disease Family history of malignant neoplasm of breast in first degree relative Father Family history of coronary artery disease Social History Social History (Updated 09/11/24 @ 16:36 by Gris Hillman PA-C) Social History: Surrogate medical decision maker: Moisés Kate, son. Code status: Full code. Smoking status: Former smoker Tobacco type: cigarettes Smoking end date: 10/20/94 Alcohol intake: current Drinks per week: 0 Substance use: never Substance use type: does not use Do You Feel Safe in your Home?: Yes Lack of Transportation: No Lack of Food: Never True Current Housing: I Have Housing Concerned About Future Housing: No Difficulty Paying Gas/Electric Bills: No Difficulty Paying for Meds: No Currently Unemployed: No Education: Master's Degree or Higher Difficulty w/ Childcare or Family Care: No Additional living arrangements comments: The patient lives in [place]. 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 Spiritual care concerns: No Meds Home Medications and Allergies Home Medications Medication Instructions Recorded Confirmed Type Adults Multivitamin 09/11/24 History Calcium 600 with Vitamin D3 09/11/24 History Nf Betahistine 8 mg QID 09/11/24 09/11/24 History Vitamin B-12 09/11/24 History Vitamin D3 09/11/24 History allopurinol 100 mg tablet 100 mg DAILY 09/11/24 09/11/24 History amlodipine 5 mg tablet mg 09/11/24 History atorvastatin 10 mg tablet 10 mg 09/11/24 History buspirone 5 mg tablet mg 09/11/24 History famotidine 20 mg tablet mg 09/11/24 History levothyroxine 75 mcg tablet 75 mcg 09/11/24 History tramadol 200 mg tablet,extended 200 mg PO 09/11/24 History release 24 hr tramadol 50 mg tablet 50 mg 09/11/24 History triamterene 37.5 cap 09/11/24 History mg-hydrochlorothiazide 25 mg capsule Allergies Allergy/AdvReac Type Severity Reaction Status Date / Time Sulfa (Sulfonamide Allergy Mild RASH Verified 12/01/16 11:04 Antibiotics) Penicillins Allergy Unknown Verified 12/11/14 10:14 sulfanilamide Allergy Unknown Verified 12/11/14 10:14 Vital Signs Vital Signs - 24 hr 09/11/24 09:07 09/11/24 09:09 09/11/24 10:51 Temperature 98 F Pulse Rate 91 88 Respiratory Rate 20 20 Blood Pressure 149/64 H 131/56 L Pulse Oximetry 97 98 95 Oxygen Delivery Room Air Exam Narrative: General: Well-developed female in the semi-Gresham position in bed in no acute distress. Weight: 80.6 kg. BMI: 34.0. HEENT: PERRL, EOMI. Sclera anicteric. Oral mucosa moist. Oropharynx clear. Neck: Supple. No jugular venous distention. Respiratory: Respirations are nonlabored and she is speaking in full sentences. Lungs are clear to auscultation bilaterally. Cardiovascular: Regular rate and rhythm with S1-S2. Gastrointestinal: Abdomen is soft, nontender, and nondistended with positive bowel sounds. Skin: Warm and dry. No rash or lesions on limited exam. Extremities: No cyanosis or clubbing. Lower legs are large with mild edema. Equivocal Homans sign on the right. No palpable knots or cords. Neurological: Alert. Cranial nerves 2-12 are grossly intact. No gross focal deficits to casual conversation. Psychiatric: Pleasant and cooperative with normal mood and affect. Judgment and insight intact. She is in good spirits. H&P: Results Labs Labs: Short CBC 09/11/24 Range/Units 09:15 WBC 9.3 (4.5-10.0) K/mm3 Hgb 12.0 (12.0-15.0) g/dL Hct 38.0 (37.0-47.0) % Plt Count 482 H (150-375) k/mm3 BMP 09/11/24 09:15 Sodium 138 Potassium 4.0 Chloride 103 Carbon Dioxide 26 BUN 13 Creatinine 1.00 Glucose 87 Calcium 9.4 Cardiac Enzymes 09/11/24 Range/Units 09:15 Troponin I 0.028 (0.000-0.034) ng/mL Liver Function 09/11/24 Range/Units 09:15 Total Bilirubin 0.7 (0.2-1.3) mg/dL AST 30 (14-36) U/L ALT 20 (6-35) U/L Alkaline Phosphatase 143 H (38-126) U/L Albumin 4.1 (3.5-5.1) g/dL Urine 09/11/24 Range/Units 09:35 Urine Color Yellow (Yellow) Urine Appearance Clear (Clear) Urine pH 7.5 (5.0-9.0) Ur Specific [place] 1.010 (1.001-1.035) Urine Protein Negative (Negative) mg/dL Urine Glucose (UA) Negative (Negative) mg/dL Imaging Chest X-Ray 09/11/24 09:52 IMPRESSION: 1. Indeterminate nodularity is detected within the right mid to lower lung field for which cross-sectional imaging (noncontrast enhanced CT examination of the chest) is suggested for further evaluation. Venous Doppler Study 09/11/24 10:44 IMPRESSION: 1. Noncompressibility and absence of flow within the right popliteal, posterior tibial and peroneal veins, as detailed above. Chest CTA 09/11/24 10:56 IMPRESSION: 1. Pulmonary embolism with thrombi in the distal main branches, segmental and subsegmental branches. No definite evidence of right ventricular strain. 2. Nodules in the right lower lobe. Follow-up CT in 3 months or PET scan is advised. 3. Groundglass area in the left lower lobe. Follow-up advised. 4. Fat-containing lesion in the right kidney which may indicate angiomyolipoma follow-up advised. Assessment and Plan Assessment and plan (1) Bilateral pulmonary embolism: Code(s): I26.99 - Other pulmonary embolism without acute cor pulmonale Status: Acute (2) Deep vein thrombosis of right lower extremity: Code(s): I82.401 - Acute embolism and thrombosis of unspecified deep veins of right lower extremity Status: Acute (3) Right lower lobe pulmonary nodule: Code(s): R91.1 - Solitary pulmonary nodule Status: Acute (4) Lesion of right [place] kidney: Code(s): N28.9 - Disorder of kidney and ureter, unspecified Status: Acute (5) Gastroesophageal reflux disease: Code(s): K21.9 - Gastro-esophageal reflux disease without esophagitis Status: Acute (6) Hypothyroidism, unspecified: Code(s): E03.9 - Hypothyroidism, unspecified Status: Acute (7) Essential (primary) hypertension: Code(s): I10 - Essential (primary) hypertension Status: Acute Plan The patient presented to the emergency department for evaluation of shortness of breath over the past 1 week as detailed in HPI. Labs, imaging, EKG, and all reports were personally reviewed. She was found to have bilateral pulmonary emboli and right lower extremity DVT. Likely provoked by recent travel to [place]. She has been started on a heparin drip. No definitive right ventricular strain noted on CT scan however an echocardiogram has been ordered. CT also shows nodules in the right lower lobe and a fat containing lesion in the right kidney for which follow-up is advised as an outpatient. Continue famotidine for history of GERD and remote history of gastric ulcers. Continue levothyroxine and check TSH. Blood pressures were reviewed and they have been stable. Her medications will be reviewed and resumed as appropriate. Findings and treatment plan were discussed with the patient. Questions were solicited and answered to satisfaction. The patient's medical management will be taken over by the hospitalist team in a.m. Quality VTE Prophylaxis VTE prophylaxis: pharmacologic ordered (on heparin drip) The patient has been admitted under observation status. Hospitalist MIPS Advance Care Plan I have confirmed that the patient's Advanced Care Plan is present, code status is documented, or surrogate decision maker is listed in patient medical record.: Yes Medication Reconciliation I have utilized all available resources to obtain, update and review the patients current medications (includes all prescriptions, OTC, herbals, cannabis, and nutritional supplements).: Yes
--- NOTE | 2024-09-11 12:12 | PC.NURSE ---
Report received from Thuy in ER @1211.
[2024-09-11 13:33] LABS: Troponin I 0.031 ng/mL (0.000-0.034)
[2024-09-11] MEDS: PERFLUTREN LIPID MICROSPHERES 1.5 ML VIAL DILUTED TO 10 ML TOTAL VOLUME IV PUSH (15:29)
--- NOTE | 2024-09-11 15:30 | IVDEFINITY ---
Prior to administration of IV Definity the patient was educated on the risks and benefits of the imaging enhancing agent including potential adverse side effects. The patient verbalized understanding. Allergies were verified. No exclusion criteria were identified and at least one of the following inclusion criteria were met: 1) physician request, 2) patient technically difficult to image (per the [place] [employer] guidelines of two or more segments not discernable within the apical view), or 3) questionable left ventricular function. ?
[2024-09-11 17:54] LABS: INR 0.9
[2024-09-11 17:56] LABS: Partial Thromboplastin Time 96.9 Seconds (22.3-36.8)
[2024-09-11 18:09] LABS: Troponin I 0.034 ng/mL (0.000-0.034)
[2024-09-11 23:25] LABS: Partial Thromboplastin Time 82.5 Seconds (22.3-36.8)
[2024-09-12] VITALS (19 sets, daily range): BP systolic 137–157; BP diastolic 55–69; PULSE 69–92; RESP 16–18; TEMP 36.7–37.3; O2SAT 93–98
[2024-09-12 05:08] LABS: Basophils Percent Auto 0.4 % (0.2-1.2); Eosinophils Absolute Auto 0.2 K/mm3 (0-0.3); Eosinophils Percent Auto 2.7 % (0-4.4); Hematocrit 32.4 % (37.0-47.0); Hemoglobin 10.4 g/dL (12.0-15.0); Immature Granulocyte Absolute 0.03 K/mm3 (0.00-0.031); Immature Granulocyte Percent A 0.4 % (0-0.5); Lymphocytes Absolute Auto 1.99 K/mm3 (0.9-3.2); Mean Corpuscular HGB Conc 32.1 g/dl (32-36); Mean Corpuscular Hemoglobin 32.3 pg (26-34); Mean Corpuscular Volume 100.6 fl (80-100); Mean Platelet Volume 8.9 fl (7.4-10.4); Monocytes Absolute Auto 0.6 K/mm3 (0.1-0.6); Monocytes Percent Auto 8.2 % (2.6-8.5); Neutrophils Absolute Auto 4.8 K/mm3 (1.3-6.7); Neutrophils Percent Auto 62.3 % (45.5-73.1); Platelet Count Result 410 k/mm3 (150-375); Red Blood Count 3.22 M/mm3 (4.2-5.4); Red Cell Distribution Width 14.3 % (11.5-14.5); White Blood Count 7.7 K/mm3 (4.5-10.0)
[2024-09-12 05:21] LABS: Partial Thromboplastin Time 106.2 Seconds (22.3-36.8)
[2024-09-12 05:25] LABS: Anion Gap 4 mmol/L (4-12); Blood Urea Nitrogen 10 mg/dL (7-17); Calcium 8.9 mg/dL (8.4-10.2); Carbon Dioxide 28 mmol/L (22-30); Chloride 106 mmol/L (98-107); Estimated CRCL calculation 45 ml/min; Estimated Glomerular Filt Rate 53; Glucose 89 mg/dL (65-110); Magnesium 1.8 mg/dL (1.6-2.3); Potassium 4.3 mmol/L (3.4-5.0); Sodium 138 mmol/L (137-145)
[2024-09-12] MEDS: LEVOTHYROXINE SODIUM 75 MCG TABLET PO (05:28)
[2024-09-12] MEDS: BETAHISTINE 8 EACH PO ×4 (07:00→22:51)
[2024-09-12] MEDS: HEPARIN SOD/D5W 100 UNITS/ML 25,000 UNITS/250 ML BAG 12 UNITS IV CONT (08:08)
--- NOTE | 2024-09-12 09:35 | PHAR ---
HOME MED Betahistine 8 mg; TAKE 1 CAPSULE BY MOUTH 4 TIMES A DAY. VERIFIED BY PHARMACY.
[2024-09-12] MEDS: allopurinoL 100 MG TABLET BY MOUTH (09:41)
[2024-09-12] MEDS: CALCIUM/VITAMIN D 500 MG/5 MCG (200 I.U.) TABLET PO (09:41)
[2024-09-12] MEDS: MULTIVITAMINS THERAPEUTIC TAB (*BKC) 1 TABLET PO (09:41)
[2024-09-12] MEDS: busPIRone HCL 5 MG TABLET PO (09:41)
[2024-09-12] MEDS: FAMOTIDINE 20 MG TABLET PO (09:41)
[2024-09-12] MEDS: TRIAMTERENE 37.5 MG/HCTZ 25 MG (MAXZIDE) TABLET 1 TAB PO (09:41)
[2024-09-12] MEDS: ATORVASTATIN 10 MG TABLET PO (09:41)
[2024-09-12] MEDS: amLODIPine BESYLATE 5 MG TABLET PO (09:42)
[2024-09-12 10:51] LABS: Partial Thromboplastin Time 70.5 Seconds (22.3-36.8)
--- NOTE | 2024-09-12 12:35 | PM.IMPN ---
Progress Note: A&P Assessment and Plan (1) Bilateral pulmonary embolism: Code(s): I26.99 - Other pulmonary embolism without acute cor pulmonale Status: Acute Assessment and Plan: No right heart strain. Continue Heparin drip Transition to Eliquis for discharge. Continue to monitor labs and VS. Care Coordination was consulted for anticoagulation approval. (2) Deep vein thrombosis of right lower extremity: Code(s): I82.401 - Acute embolism and thrombosis of unspecified deep veins of right lower extremity Status: Acute Assessment and Plan: See #1 (3) Right lower lobe pulmonary nodule: Code(s): R91.1 - Solitary pulmonary nodule Status: Acute Assessment and Plan: Newly found on CTA of chest. Pt will need follow up in [address] or PET scan as noted per Radiologist. Discharging provider should set up for pt. (4) Lesion of right [place] kidney: Code(s): N28.9 - Disorder of kidney and ureter, unspecified Status: Acute Assessment and Plan: Follow up advised with PCP upon discharge. (5) Gastroesophageal reflux disease: Code(s): K21.9 - Gastro-esophageal reflux disease without esophagitis Status: Chronic Assessment and Plan: Continue Famotidine. (6) Hypothyroidism, unspecified: Code(s): E03.9 - Hypothyroidism, unspecified Status: Chronic Assessment and Plan: Continue Levothyroxine (7) Essential (primary) hypertension: Code(s): I10 - Essential (primary) hypertension Status: Chronic Assessment and Plan: Continue Amlodipine Monitor pressures. Time Spent With Patient Time with patient: 25 - 35 minutes Subjective Date/time seen: 09/12/24 0900 Interval history: This very pleasant and active 79 year old female pt who was admitted with bilateral PE's and RLE DVT was examined at the bedside today in interval assessment. She remains on a Heparin drip at this time. ECHO was performed today and does not show heart strain. She has normal LVSF with EF of 65-70% and Grade 1 Diastolic Dysfunction. Troponins are flat, and she currently remains stable on room air. Care coordination has been consulted and will assist with setting up on Eliquis therapy for home. Pt without any new or acute complaints or symptoms. Review of Systems Review of Systems: All systems reviewed & are unremarkable except as noted in HPI and below Exam Narrative: General: Well-developed female in the semi-Gresham position in bed in no acute distress. HEENT: PERRL, EOMI. Sclera anicteric. Oral mucosa moist. Oropharynx clear. Neck: Supple. No jugular venous distention. Respiratory: Respirations are nonlabored and she is speaking in full sentences. Lungs are clear to auscultation bilaterally. Cardiovascular: Regular rate and rhythm with S1-S2. Gastrointestinal: Abdomen is soft, nontender, and nondistended with positive bowel sounds. Skin: Warm and dry. No rash or lesions on limited exam. Extremities: No cyanosis or clubbing. Lower legs are large with mild edema, R>L. Equivocal Homans sign on the right. No palpable knots or cords. Neurological: Alert. Cranial nerves 2-12 are grossly intact. No gross focal deficits to casual conversation. Psychiatric: Pleasant and cooperative with normal mood and affect. Judgment and insight intact. She is in good spirits. Objective Data Vital Signs Vital Signs: Vital Signs - 24 hr 09/11/24 13:06 09/11/24 15:52 09/11/24 14:00 Temperature 98.4 F 98.3 F Pulse Rate 93 95 96 Respiratory Rate 20 18 Blood Pressure 153/61 H 135/55 L Pulse Oximetry 96 96 Oxygen Delivery 09/11/24 16:00 09/11/24 18:00 09/11/24 20:00 Temperature Pulse Rate 99 90 Respiratory Rate Blood Pressure Pulse Oximetry Oxygen Delivery Room Air 09/11/24 20:00 09/11/24 20:24 09/11/24 22:00 Temperature 98.5 F Pulse Rate 95 90 83 Respiratory Rate 16 Blood Pressure 156/68 H Pulse Oximetry 98 Oxygen Delivery 09/12/24 00:00 09/12/24 00:17 09/12/24 00:00 Temperature 98.5 F Pulse Rate 83 85 82 Respiratory Rate 16 16 Blood Pressure 137/57 L Pulse Oximetry 98 94 Oxygen Delivery Room Air 09/12/24 02:00 09/12/24 03:49 09/12/24 03:52 Temperature 98.3 F Pulse Rate 76 76 88 Respiratory Rate 16 16 Blood Pressure 154/69 H Pulse Oximetry 94 98 Oxygen Delivery Room Air 09/12/24 04:00 09/12/24 06:00 09/12/24 07:59 Temperature 98.2 F Pulse Rate 77 82 87 Respiratory Rate 18 Blood Pressure 157/63 H Pulse Oximetry 98 Oxygen Delivery 09/12/24 11:22 Temperature 98.7 F Pulse Rate 91 Respiratory Rate 16 Blood Pressure 150/67 H Pulse Oximetry 95 Oxygen Delivery Intake/Output Intake/Output: Intake & Output 09/09/24 09/10/24 09/11/24 09/12/24 23:59 23:59 23:59 23:59 Intake Total 590.8 1219.2 Output Total 1450 1650 Balance -859.2 -430.8 Meds/Results Medications: Active Medications Generic Name Dose Route Start Last Admin Trade Name Freq PRN Reason Stop Dose Admin Acetaminophen 650 mg 09/11/24 12:30 Acetaminophen 325 Mg Tablet PO Q6H PRN Mild Pain (1-3) or Fever Allopurinol 100 mg 09/12/24 09:00 09/12/24 09:41 Allopurinol 100 Mg Tablet BY MOUTH 100 mg DAILY MARCO Administration Amlodipine Besylate 5 mg 09/12/24 09:00 09/12/24 09:42 Amlodipine Besylate 5 Mg Tablet PO 5 mg DAILY [facility] Administration Atorvastatin Calcium 10 mg 09/12/24 09:00 09/12/24 09:41 Atorvastatin 10 Mg Tablet PO 10 mg DAILY [facility]CO Administration Buspirone HCl 5 mg 09/12/24 09:00 09/12/24 09:41 Buspirone Hcl 5 Mg Tablet PO 5 mg DAILY [facility]CO Administration Calcium Carbonate 500 mg 09/12/24 09:00 09/12/24 09:41 Calcium/Vitamin D 500 Mg/5 Mcg (200 I.U.) Tablet PO 500 mg DAILY MAROC Administration Famotidine 20 mg 09/12/24 09:00 09/12/24 09:41 Famotidine 20 Mg Tablet PO 20 mg DAILY MARCO Administration Heparin Sodium (Porcine) 5,500 units 09/11/24 12:00 Heparin Sodium 5,000 Units/Ml Vial IV PUSH PRN PRN aPTT less than 55 seconds Heparin Sodium (Porcine) 3,000 units 09/11/24 12:00 Heparin Sodium 5,000 Units/Ml Vial IV PUSH PRN PRN aPTT 55 - 70 seconds Heparin Sodium/Dextrose 25,000 units in 250 mls @ 12 mls/hr 09/11/24 11:45 09/12/24 08:08 Heparin Sodium/D5w 100 Units/Ml IV CONT 1,200 units/hr .[id number] MARCO 12 mls/hr Administration Protocol 1,200 UNITS/HR Levothyroxine Sodium 75 mcg 09/12/24 06:30 09/12/24 05:28 Levothyroxine Sodium 75 Mcg Tablet PO 75 mcg DAILY@0630 [facility]CO Administration Miscellaneous Information 1 each 09/12/24 00:01 09/12/24 07:49 Med Rec Order Clarification XX 10/12/24 00:00 Not Given CLARIFY MARCO Miscellaneous Information 1 each 09/12/24 00:01 09/12/24 07:49 Med Rec Order Clarification XX 10/12/24 00:00 Not Given CLARIFY [facility] Multivitamins Therapeutic 1 tablet 09/12/24 09:00 09/12/24 09:41 Multivitamins Therapeutic Tab (*Bkc) PO 1 tablet DAILY [facility] Administration Betahistine 8 Mg 8 mg 09/12/24 09:35 09/12/24 12:08 Home Med PO 10/12/24 09:34 8 mg QID [facility]CO Administration Non-Formulary Medication 200 mg 09/12/24 09:00 Tramadol PO 10/12/24 08:59 DAILY [facility] Non-Formulary Medication 1 tablet 09/12/24 09:00 Vitamin D3 PO 10/12/24 08:59 DAILY [facility] Tramadol HCl 50 mg 09/11/24 20:04 Tramadol Hcl (*Crx) 50 Mg Tablet PO Q6HR PRN Breakthrough Pain Triamterene/Hydrochlorothiazide 1 tab 09/12/24 09:00 09/12/24 09:41 Triamterene 37.5 Mg/Hctz 25 Mg (Maxzide) Tablet PO 1 tab DAILY MARCO Administration Radiology Results: ITS Impressions Chest X-Ray 09/11/24 09:52 IMPRESSION: Indeterminate nodularity is detected within the right mid to lower lung field for which cross-sectional imaging (noncontrast enhanced CT examination of the chest) is suggested for further evaluation. Venous Doppler Study 09/11/24 10:44 IMPRESSION: 1. Noncompressibility and absence of flow within the right popliteal, posterior tibial and peroneal veins, as detailed above. Findings discussed with BRADLY Velazquez caring for the patient in the emergency Department at 1045 on 09/11/2024 Chest CTA 09/11/24 10:56 IMPRESSION: 1. Pulmonary embolism with thrombi in the distal main branches, segmental and subsegmental branches. No definite evidence of right ventricular strain. 2. Nodules in the right lower lobe. Follow-up CT in 3 months or PET scan is advised. 3. Groundglass area in the left lower lobe. Follow-up advised. 4. Fat-containing lesion in the right kidney which may indicate angiomyolipoma follow-up advised. Physician: Eva Robertson PA-C Was notified with the result of the patient at 11:28 AM on September 11, 2024. Labs Labs: Laboratory Results - last 24 hr 09/11/24 09/11/24 09/11/24 13:03 17:32 22:38 WBC RBC Hgb Hct MCV MCH MCHC RDW Plt Count MPV Immature Gran % (Auto) Neut % (Auto) Lymph % (Auto) [place] % (Auto) Eos % (Auto) Baso % (Auto) Lymph # (Auto) [place] # (Auto) Eos # (Auto) Baso # (Auto) Abs Immat Gran (auto) Absolute Neuts (auto) Absolute Nucleated RBC Nucleated RBC % PT 13.0 INR 0.9 APTT 96.9 H 82.5 H Sodium Potassium Chloride Carbon Dioxide Anion Gap BUN Creatinine Estim Creat Clear Calc Estimated GFR Glucose Calcium Magnesium Troponin I 0.031 0.034 09/12/24 09/12/24 04:44 10:33 WBC 7.7 RBC 3.22 L Hgb 10.4 L Hct 32.4 L MCV 100.6 H MCH 32.3 MCHC 32.1 RDW 14.3 Plt Count 410 H MPV 8.9 Immature Gran % (Auto) 0.4 Neut % (Auto) 62.3 Lymph % (Auto) 26.0 [place] % (Auto) 8.2 Eos % (Auto) 2.7 Baso % (Auto) 0.4 Lymph # (Auto) 1.99 [place] # (Auto) 0.6 Eos # (Auto) 0.2 Baso # (Auto) 0.0 Abs Immat Gran (auto) 0.03 Absolute Neuts (auto) 4.8 Absolute Nucleated RBC 0.000 Nucleated RBC % 0.0 PT INR APTT 106.2 H 70.5 H Sodium 138 Potassium 4.3 Chloride 106 Carbon Dioxide 28 Anion Gap 4 BUN 10 Creatinine 1.00 Estim Creat Clear Calc 45 Estimated GFR 53 L Glucose 89 Calcium 8.9 Magnesium 1.8 Troponin I Quality VTE Prophylaxis VTE prophylaxis: pharmacologic ordered (Heparin drip)
[2024-09-12 16:35] LABS: Partial Thromboplastin Time 76.2 Seconds (22.3-36.8)
[2024-09-13] VITALS (11 sets, daily range): BP systolic 120–157; BP diastolic 46–73; PULSE 70–91; RESP 14–18; TEMP 36.7–37; O2SAT 94–98
[2024-09-13] MEDS: LEVOTHYROXINE SODIUM 75 MCG TABLET PO (05:24)
[2024-09-13] MEDS: HEPARIN SOD/D5W 100 UNITS/ML 25,000 UNITS/250 ML BAG 12 UNITS IV CONT (05:25)
[2024-09-13 06:54] LABS: Basophils Percent Auto 0.3 % (0.2-1.2); Eosinophils Absolute Auto 0.2 K/mm3 (0-0.3); Eosinophils Percent Auto 2.8 % (0-4.4); Hematocrit 32.7 % (37.0-47.0); Hemoglobin 10.7 g/dL (12.0-15.0); Immature Granulocyte Absolute 0.02 K/mm3 (0.00-0.031); Immature Granulocyte Percent A 0.3 % (0-0.5); Lymphocytes Absolute Auto 1.63 K/mm3 (0.9-3.2); Lymphocytes Percent Auto 22.7 % (18.3-44.2); Mean Corpuscular HGB Conc 32.7 g/dl (32-36); Mean Corpuscular Hemoglobin 32.6 pg (26-34); Mean Corpuscular Volume 99.7 fl (80-100); Mean Platelet Volume 8.5 fl (7.4-10.4); Monocytes Absolute Auto 0.6 K/mm3 (0.1-0.6); Monocytes Percent Auto 8.4 % (2.6-8.5); Neutrophils Absolute Auto 4.7 K/mm3 (1.3-6.7); Neutrophils Percent Auto 65.5 % (45.5-73.1); Platelet Count Result 422 k/mm3 (150-375); Red Blood Count 3.28 M/mm3 (4.2-5.4); Red Cell Distribution Width 14.2 % (11.5-14.5); White Blood Count 7.2 K/mm3 (4.5-10.0)
[2024-09-13 07:05] LABS: Alanine Aminotransferase 14 U/L (6-35); Albumin Level 3.2 g/dL (3.5-5.1); Alkaline Phosphatase 108 U/L (38-126); Anion Gap 3 mmol/L (4-12); Aspartate Amino Transferase 32 U/L (14-36); Bilirubin,Total 0.8 mg/dL (0.2-1.3); Blood Urea Nitrogen 9 mg/dL (7-17); Calcium 8.8 mg/dL (8.4-10.2); Carbon Dioxide 27 mmol/L (22-30); Chloride 104 mmol/L (98-107); Estimated CRCL calculation 44 ml/min; Estimated Glomerular Filt Rate 53; Glucose 91 mg/dL (65-110); Magnesium 1.7 mg/dL (1.6-2.3); Potassium 4.1 mmol/L (3.4-5.0); Sodium 134 mmol/L (137-145)
[2024-09-13 07:10] LABS: Partial Thromboplastin Time 86.7 Seconds (22.3-36.8)
[2024-09-13] MEDS: CALCIUM/VITAMIN D 500 MG/5 MCG (200 I.U.) TABLET PO (08:45)
[2024-09-13] MEDS: TRIAMTERENE 37.5 MG/HCTZ 25 MG (MAXZIDE) TABLET 1 TAB PO (08:45)
[2024-09-13] MEDS: busPIRone HCL 5 MG TABLET PO (08:45)
[2024-09-13] MEDS: FAMOTIDINE 20 MG TABLET PO (08:46)
[2024-09-13] MEDS: CHOLECALCIFEROL 5,000 UNITS TABLET 5000 UNITS PO (08:46)
[2024-09-13] MEDS: allopurinoL 100 MG TABLET BY MOUTH (08:46)
[2024-09-13] MEDS: MULTIVITAMINS THERAPEUTIC TAB (*BKC) 1 TABLET PO (08:46)
[2024-09-13] MEDS: ATORVASTATIN 10 MG TABLET PO (08:46)
[2024-09-13] MEDS: BETAHISTINE 8 EACH PO ×3 (08:46→17:03)
[2024-09-13] MEDS: amLODIPine BESYLATE 5 MG TABLET PO (08:46)
[2024-09-13] MEDS: APIXABAN 5 MG TABLET 10 MG PO (14:50)
--- NOTE | 2024-09-13 16:03 | P.DS_ITS ---
DS: Admitting Diagnosis Discharge Date 09/13/2024 Admitting Diagnosis Bilateral Pulmonary Emboli, RLE DVT DS: Discharge Diagnosis Discharge Diagnosis (1) Bilateral pulmonary embolism: Code(s): I26.99 - Other pulmonary embolism without acute cor pulmonale Status: Acute (2) Deep vein thrombosis of right lower extremity: Code(s): I82.401 - Acute embolism and thrombosis of unspecified deep veins of right lower extremity Status: Acute (3) Right lower lobe pulmonary nodule: Code(s): R91.1 - Solitary pulmonary nodule Status: Acute (4) Lesion of right [place] kidney: Code(s): N28.9 - Disorder of kidney and ureter, unspecified Status: Acute (5) Gastroesophageal reflux disease: Code(s): K21.9 - Gastro-esophageal reflux disease without esophagitis Status: Chronic (6) Hypothyroidism, unspecified: Code(s): E03.9 - Hypothyroidism, unspecified Status: Chronic (7) Essential (primary) hypertension: Code(s): I10 - Essential (primary) hypertension Status: Chronic Plan Discharge Home. DS: Summary Hospital Course Reason for hospitalization: Dyspnea on Exertion, RLE edema. Hospital Course: Patient presented to the ER with reports on new dyspnea on exertion and RLE edema. Patient reported that she had recently taken a trip to [place] and symptoms started thereafter. Patient had CTA chest done that revealed bilateral pulmonary embolism, with her vanessa. LE venous duplex also showing a DVT to his RLE. A TTE did not reveal any heart strain and no embolus was seen in the heart as well. She was initially started on Heparin IV that has been transitioned to Eliquis. She reports her SOB has resolved and has no pain to her RLE. Patient appears medically stable for discharge on Eliquis and will follow-up with PCP for re-evaluation. No acute distress noted or reported prior to discharge. Status at Discharge Cognitive/behavioral status at discharge: Well oriented. Functional status at discharge: independent ambulation Overall status at discharge: patient is progressing back to baseline Time Spent with Patient Time attestation: Total time spent providing and/or coordinating discharge services: Time spent: Greater than 30 minutes Exam Narrative: General: Well-developed female in the semi-Gresham position in bed in no acute distress. HEENT: PERRL, EOMI. Sclera anicteric. Oral mucosa moist. Oropharynx clear. Neck: Supple. No jugular venous distention. Respiratory: Respirations are nonlabored and she is speaking in full sentences. Lungs are clear to auscultation bilaterally. Cardiovascular: Regular rate and rhythm, Grade II apical murmur. Chronic per patient. Gastrointestinal: Abdomen is soft, nontender, and nondistended with positive bowel sounds. Skin: Warm and dry. No rash or lesions on limited exam. Extremities: No cyanosis or clubbing. Lower legs are large with mild edema, R>L. Equivocal Homans sign on the right. No palpable knots or cords. Neurological: Alert. Cranial nerves 2-12 are grossly intact. No gross focal deficits to casual conversation. Psychiatric: Pleasant and cooperative with normal mood and affect. Judgment and insight intact. She is in good spirits. Psych: Mental Status: mental status grossly normal Affect: normal affect DS: Data Data Completed and Pending Labs on day of discharge: Labs from last 24 hours 09/13/24 09/12/24 06:48 16:14 WBC 7.2 RBC 3.28 L Hgb 10.7 L Hct 32.7 L MCV 99.7 MCH 32.6 MCHC 32.7 RDW 14.2 Plt Count 422 H MPV 8.5 Immature Gran % (Auto) 0.3 Neut % (Auto) 65.5 Lymph % (Auto) 22.7 [place] % (Auto) 8.4 Eos % (Auto) 2.8 Baso % (Auto) 0.3 Lymph # (Auto) 1.63 [place] # (Auto) 0.6 Eos # (Auto) 0.2 Baso # (Auto) 0.0 Abs Immat Gran (auto) 0.02 Absolute Neuts (auto) 4.7 Absolute Nucleated RBC 0.000 Nucleated RBC % 0.0 APTT 86.7 H 76.2 H Sodium 134 L Potassium 4.1 Chloride 104 Carbon Dioxide 27 Anion Gap 3 L BUN 9 Creatinine 1.00 Estim Creat Clear Calc 44 Estimated GFR 53 L Glucose 91 Calcium 8.8 Magnesium 1.7 Total Bilirubin 0.8 AST 32 ALT 14 Alkaline Phosphatase 108 Total Protein 6.0 L Albumin 3.2 L Discharge Plan Discharge Attending physician on discharge: Zeeshan Buckley Discharging Clinician: Sangeetha Mullins Anticipated Discharge Date/Time: 09/13/24 16:19 Patient Disposition: Home, Self-Care Activity: as tolerated Diet: heart healthy Patient Instructions: Antibiotic Form, Apixaban (By mouth), Pulmonary Embolism (DC), Deep Vein Thrombosis (DC), Blood Thinners (DC), Deep Vein Thrombosis Prevention (DC) Patient Language: Citizen Of [place] Stand Alone Forms: General Discharge Information Follow-up/Referrals: Radha,MD Yonis [Primary Care Provider] - 2 Weeks Discharge Medications: New Eliquis 5 mg Tablet 5 mg PO Q12HR Qty: 60 3RF Eliquis 5 mg Tablet 10 mg PO Q12HR Qty: 26 0RF Continued allopurinol 100 mg tablet 100 mg DAILY levothyroxine 75 mcg tablet 75 mcg PO DAILY atorvastatin 10 mg tablet 10 mg PO DAILY tramadol 200 mg tablet extended release 24 hr 200 mg PO DAILY tramadol 50 mg tablet 50 mg PO DAILY PRN (Reason: Breakthrough Pain) Patient Comments: Taken a couple of weeks ago triamterene-hydrochlorothiazid 37.5-25 mg capsule 1 cap PO DAILY buspirone 5 mg tablet 5 mg PO BID amlodipine 5 mg tablet 5 mg PO DAILY famotidine 20 mg tablet 20 mg PO BID Adults Multivitamin 1 tablet PO DAILY Calcium 600 with Vitamin D3 1 tablet PO DAILY Vitamin B-12 1 tablet PO WEEKLY Nf Betahistine 8 mg 8 mg PO QID Patient Comments: patient medication for [place] is formulated at [facility] in [place] [phone]. Patient has home med here at hospital cholecalciferol (vitamin D3) [Vitamin D3] 125 mcg (5,000 unit) Tablet 125 mcg PO DAILY Date of admission: 09/11/24 11:39 Primary Care Provider: RadhaYonis Admitting Provider: Marvin Olvera Attending physician on admission: Deborah Salinas Condition: Improved Quality VTE Prophylaxis VTE prophylaxis: pharmacologic ordered (Gamal) Hospitalist MIPS Heart Failure (Exclusion) Patient has history of Heart Transplant or Left Ventricular Assistive Device?: No IF YES, STOP HERE Heart Failure (Qualifier) Patient has current or prior documentation of LVEF less than or equal to 40%, or mod/servere depressed LVSF?: No IF NO, STOP HERE If Medications not prescribed/taking Reason patient not prescribed/taking SIS or ARB: Patient reasons: pt declined or other pt reason Reason patient not prescribed/taking bisoprolol, carvedilol, or sustained realease metoprolol succinate: Patient reasons: pt declined or other pt reason
== END 2024-09-13 17:19 | disposition home or self-care (01) ==
LOC: ANHED 11:46 → ANHIMU 12:13
PROVIDERS: Emergency Medicine; Internal Medicine; Nurse Practitioner Acute Care; Physician Assistant; Admitting Provider General Practice; Emergency Provider Physician Assistant; PCP Internal Medicine; Visit Provider Nurse Practitioner Adult Health
DX: I26.94 Multiple subsegmental thrombotic pulmonary emboli without acute cor pulmonale (principal); I82.401 Acute embolism and thrombosis of unspecified deep veins of right lower extremity; N28.9 Disorder of kidney and ureter, unspecified; I10 Essential (primary) hypertension; R91.1 Solitary pulmonary nodule; E78.2 Mixed hyperlipidemia; E03.9 Hypothyroidism, unspecified; M19.90 Unspecified osteoarthritis, unspecified site; M10.9 Gout, unspecified; K21.9 Gastro-esophageal reflux disease without esophagitis; Z87.11 Personal history of peptic ulcer disease; Z87.891 Personal history of nicotine dependence; Z88.0 Allergy status to penicillin; Z88.2 Allergy status to sulfonamides; Z79.899 Other long term (current) drug therapy; Z98.84 Bariatric surgery status
CPT/HCPCS: 36415; 71046; 71275; 80048; 80053; 81001; 83735; 83880; 84484; 85025; 85610; 85730; 93005; 93970; 96365; 96366; 96375; 99285; 99291; A9270; C8929; G0378; J1644; Q9957; Q9967

== ENCOUNTER 2024-10-28 08:33 | Outpatient (CLI) | payer MEDICARE, SELFPAY ==
--- NOTE | ~2024-10-28 | CT_ITS ---
CT of the Abdomen and Pelvis: Indication: Renal mass Technique: 2.5 mm axial scans were obtained through the abdomen and pelvis prior to and following in travenous administration of 100 cc of Omnipaque 350. Dose reduction technique was used on this scan b y utilizing automated exposure control and iterative reconstruction technique. The dose-length produc t (DLP) was 871.62 mGy-cm. Findings: Scans through the lung bases demonstrates 7 mm right basilar pulmonary nodule (axial image 15).. The liver, spleen, pancreas, and adrenal glands are within normal limits. 3.7 cm right upper pole sloane al mass contains macroscopic fat, compatible with angiomyolipoma. Small bilateral nonobstructing shola l stones measure 203 mm in size. Gallbladder absent. There are atherosclerotic calcifications of the aorta. No lymphadenopathy. Visualized bowel loops are unremarkable. No ascites. 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 Small bilateral nonobstructing renal stones. 7 mm basilar pulmonary nodule. According to Fleischner Society criteria, for a low-risk patient, julio mmend follow-up CT scan in 6-12 months, then consider additional 18-[address]. For a high-risk hailey ent, follow-up CT scans at both 6-12 months and 18-24 months are recommended. Reviewed, dictated and finalized at location . 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 Small bilateral nonobstructing renal stones. 7 mm basilar pulmonary nodule. According to Fleischner Society criteria, for a low-risk patient, recommend follow-up CT scan in 6-12 months, then consider add itional 18-[address] For a high-risk patient, follow-up CT scans at both 6-1 2 months and 18-24 months are recommended.
[2024-10-28 09:11] LABS: Estimated Glomerular Filt Rate 43
== END 2024-10-28 08:34 | disposition home or self-care (01) ==
PROVIDERS: PCP Internal Medicine; Visit Provider Urology
DX: D17.71 Benign lipomatous neoplasm of kidney (principal); N20.0 Calculus of kidney; R91.1 Solitary pulmonary nodule
CPT/HCPCS: 74170; Q9967

== ENCOUNTER 2025-02-04 14:16 | Outpatient (CLI) | payer MEDICARE, SELFPAY ==
--- NOTE | ~2025-02-04 | CT_ITS ---
CLINICAL INDICATION: Solitary pulmonary nodule COMPARISON: 09/11/2024. TECHNIQUE: Multiple contiguous axial images of the chest was performed without the administration of intravenous contrast. This CT examination was performed utilizing dose reduction techniques. DLP: 1034 mGy-cm FINDINGS/OBSERVATIONS: LUNG:Redemonstration of multiple pulmonary nodules. 4.3 mm, right lower lobe (axial series, image 57), decreased in size from 11.3 mm on the previous tiomteo dy (axial series, image 59). 7.9 mm, right lower lobe (axial series, image 61), decreased in size from 11.4 mm on the previous timoteo dy (axial series, image 64). No additional pulmonary nodules are appreciated. Focus of groundglass opacification within the left lower lobe, surrounding a cystic lucency (axial se javier, image 55), unchanged from previous examination (axial series, image 55). The remainder of the lungs are clear HEART: The heart is of normal size, without pericardial effusion. MEDIASTINUM: No pathologically enlarged or morphologically suspicious lymph nodes are identified within the medias tinum, bilateral axilla, within the soft tissues of the anterior chest wall. SOFT TISSUES OF THE CHEST: Unremarkable. BONES OF THE CHEST: Degenerative disease with vacuum phenomena at multiple levels. No acute fracture. No lytic or blastic lesions are identified. UPPER ABDOMEN: Postoperative change within the upper abdomen. Densely calcified atherosclerotic disease. 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 IMPRESSION: Interval decrease in size of the right lower lobe nodules seen previous examination performed 024. Stable groundglass opacification surrounding a cystic lucency within the left lower lobe. 6 month follow-up is recommended to ensure resolution. Redemonstration of an angiomyolipoma within the upper pole of the right kidney. Reviewed, dictated and finalized at location A. IMPRESSION: Interval decrease in size of the right lower lobe nodules seen previous examina tion performed 09/11/2024. Stable groundglass opacification surrounding a cystic lucency within the left l ower lobe. 6 month follow-up is recommended to ensure resolution. Redemonstration of an angiomyolipoma within the upper pole of the right kidney.
--- OUTSIDE RECORDS SUMMARY | 2025-02-04 16:07 | XMS_ITS | Clinical Summary ---
Author Organization [facility] Address [address] [place] [address] Care Team Providers Care Machinery Mechanic Name Role Phone Yonis Valente MD Primary Care Provider [phone] Allergies Active Allergy Reactions Criticality Noted Date Comments Adhesive Unknown 12/05/2012 Penicillins Rash 10/18/2007 Reaction: Rash, Sulfa (Sulfonamide Antibiotics) Unknown 09/21 Sulfasalazine Unknown 12/11/2017 Medications allopurinol (ZYLOPRIM) 100 mg tablet daily. 10/18/20 07 Active calcium carbonate-vitamin D3 1,500 mg (600mg elemental) -800 unit per tablet TAKE 1 TABLET DAILY. +d3 Active atorvastatin (LIPITOR) 10 mg tablet daily. 10/18/20 07 Active multivitamin tabletIndications :Vitamin Deficiency Prevention daily. Active traMADol (ULTRAM) 50 mg tablet PRN Active cyanocobalamin (Vitamin B-12) 100 mcg tabletIndications :Prevention of Vitamin B12 Deficiency unsure med dosage qd Active cholecalciferol (VITAMIN D-3) 50,000 unit capsule 3000 IU QD Active naloxone (Narcan) 4 mg/actuation spray,non-aerosol Narcan 4 mg/actuation nasal spray UTD NEEDED NASALLY 1 DAY Active meclizine (ANTIVERT) 25 mg tablet meclizine 25 mg tablet TAKE 1 TABLET BY MOUTH EVERY 8 HOURS NEEDED Active levothyroxine (SYNTHROID) 75 mcg tablet 06/04/20 Active traMADol ER (ULTRAM-ER) 200 mg 24 hr tablet Take 1 tablet (200 mg total) by mouth daily 08/05/20 22 Active ondansetron ODT (ZOFRAN-ODT) 4 mg disintegrating tablet Take 1 tablet (4 mg total) by mouth every 8 (eight) hours as needed for nausea or vomiting 20 tablet 09/05/20 22 Active amLODIPine (NORVASC) 5 mg tablet 02/03/20 24 Active triamterene-hydro CHLOROthiazide 37.5-25 mg per tablet/capsule Take 1 tablet/capsu le by mouth daily 90 capsule 3 03/25/20 24 Active busPIRone (BUSPAR) 5 mg tablet Take 1 tablet (5 mg total) by mouth 2 (two) times a day 04/08/20 24 Active famotidine (PEPCID) 20 mg tablet Take 1 tablet (20 mg total) by mouth 2 (two) times a day Active apixaban (ELIQUIS) 5 mg tablet Take 1 tablet (5 mg total) by mouth 2 (two) times a day Active betahistine TAKE 1 CAPSULE (8 MG TOTAL) BY MOUTH 4 TIMES A DAY 240 capsule 3 01/23/20 25 Active betahistine Take 1 capsule (8 mg total) by mouth 4 (four) times a day 240 capsule 3 05/14/20 24 025 Discontinued Active Problems Problem Noted Date Diagnosed Date Nonrheumatic aortic (valve) stenosis 12/11/2024 Essential hypertension 12/11/2024 Mixed hyperlipidemia 12/11/2024 History of pulmonary embolism 12/11/2024 Dysphagia 01/10/2020 Overview (01/10/2020): Added automatically from request for surgery [id number] Bariatric surgery status 12/28/2018 Encounters Date Type Department Care Team Description 12/11/2024 10:30 AM FIELD AGRONOMIST Office Visit [facility] Cardiology at [address] [place] [address] Fabrice Diaz MD Essential hypertension (Primary Dx); Nonrheumatic aortic (valve) stenosis; Mixed hyperlipidemia; History of pulmonary embolism from Last 3 Months Immunizations Immunization Administration Dates Next Due H1N1 All Forms 07/15/2016 Influenza, Quadrivalent, Hig h Dose, Preservative Free, Intrr 08/26/2020 Influenza, Quadrivalent, Spl it, Intramuscular 07/26/2017 Influenza, Trivalent, Adjuva nted, Intramuscular 07/24/2019 Influenza, Trivalent, High D ose, Split, Preservative Free, Intramuscular 08/05/2019,08/12/2018,08/11/2018,08/15,07/25/2017,08/12/2015,09/13/2014 Influenza, Trivalent, IM (MDV) 07/30/2013 Influenza, Unspecified 08/22/2022 Moderna SARS-CoV-2 Monovalen t Vaccination (12+ YRS) 09/12/2021,12/27/2020,11/29/2020 ZOSTER Recombinant 10/29/2018, 8,08/21/2018,08/20 Surgical History Surgery Date Site/Laterality Comments GASTRIC BYPASS 11/20/1999 - 11/19/2000 Gastric bypass CHOLECYSTECTOMY TUBAL LIGATION PILONIDAL CYST / SINUS EXCISION PALATE / UVULA BIOPSY / EXCISION Medical History Medical History Date Comments Hx Other Medical Dentures Hyperlipidemia Hyperlipidemia Disorder of gallbladder Gallblad sagar disease Hypertension Hypertension Gout Hypothyroidism Peptic ulcer disease Osteoarthritis of back HL (hearing loss) Colon polyp GERD (gastroesophageal reflux disease) Family History Medical History Relation Name Comments Heart disease Father Family history of cardiac disorder - (Added by TW Conv) Coronary artery disease Mother Cancer Other 1 Family history of Cancer -; Heart disease Other 2 Family history of Heart disease; Relation Name Status Comments Father Mother Other 1 Other 2 Social History Tobacco Use Types Packs/Day Years Used Date Smoking Tobacco: Former Cigarettes 1 15 1 965 - 1979 Smokeless Tobacco: Never Alcohol Use Standard Drinks/Week Comments Yes 5 (1 standard drink = 0.6 oz pur e alcohol) AUDIT-C Answer Date Recorded Q1: How often do you have a drink containing alc ohol? Monthly or less 05/06/2024 Q2: How many drinks containi ng alcohol do you have on a typical day when you are drinking? 1 or 2 05/06/2024 Q3: How often do you have si x or more drinks on one occasion? 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 Not on file Not on file Obstetrics History Last Filed Vital Signs Vital Sign Reading Time Taken Comments Blood Pressure 132/68 12/11/2024 10:16 AM FIELD AGRONOMIST Pulse 84 12/11/2024 10:16 AM FIELD AGRONOMIST Temperature 37.1 C (98.8 F) 04/18/2024 1:57 PM CDT Respiratory Rate 18 05/06/2024 2:11 PM CDT Oxygen Saturation 98% 12/11/2024 10:16 AM FIELD AGRONOMIST Inhaled Oxygen Concentration - - Weight 88.9 kg (196 lb) 12/11/2024 10:16 AM FIELD AGRONOMIST Height 165.1 cm (5' 5 ) 12/11/2024 10:16 AM FIELD AGRONOMIST Body Mass Index 32.62 12/11/2024 10:16 AM FIELD AGRONOMIST Plan of Treatment Health Maintenance Due Date Last Done Comments Depression Screening 1944 Fall Risk Assessment 1944 DTaP/Tdap/Td Vaccine (1 - Tdap) 1955 Hepatitis B Screening 1962 Pneumococcal vaccine 65+ (1 of 1 - PCV) 1994 Well Visit 65+ 2009 Osteoporosis Screening-Bone Density Scan 07/19/2023 07/19/2021 Covid-19 Vaccine (4 - 2023-2 5 season) 2024 09/12/2021, 12/27/2020, 11/29/2020 Influenza Vaccine (#1) 2024 , 08/26/2020, 08/05/2019, Additional history exists Colon Cancer Screening-CT Colonography Discontinued 05/16/2014 Colon Cancer Screening-Colonoscopy Discontinued 05/16/2014 Colon Cancer Screening-DNA Stool Discontinued 05/16/20 14 Colon Cancer Screening-FIT Discontinued 05/16/2014 Colon Cancer Screening-FOBT Discontinued 05/16/2014 Colon Cancer Screening-Sigmoidoscopy Discontinued 05/16/2014 Colorectal Cancer Screening Discontinued Zoster Vaccine Completed 10/29/2018, 08/20, 08/21/2018, Additional history exists Procedures Procedure Name Priority Date/Time Associated Diagnosis Comments ELECTROCARDIOGRAM REPORT Routine 025 3:13 PM FIELD AGRONOMIST Nonrheumatic aortic (valve) stenosis COLONOSCOPY REPORT 05/16/2014 from Last 3 Months or Most Recently Relevant to Health Maintenance Results * Electrocardiogram Report (12/11/2024 3:13 PM FIELD AGRONOMIST) [facility] Ruben Diaz MD ECG ORDERABLES Final R esult * COLONOSCOPY REPORT (05/16/2014) Anatomical Region Laterality Modality Other Narrative 05/16/2014 Ordered by an unspecified provider. Historical Provider GI PROCEDURE ORDERABLES F inal Result from Last 3 Months or Most Recently Relevant to Health Maintenance Insurance MEDICARE [facility] MEDIC[facility] Address: [address] [address] [place] [address] [facility] MEDICARE [facility] MEDIC[facility] Address: [address] [place] [address] [employer] MEDICARE Advance Directives For more information, please contact: [phone] * Full Code (Latest Code Status on File) Date Activated Date Inactivated Comments 01/23/2020 2:57 PM 01/23/2020 9:12 PM Care Teams Machinery Mechanic Relationship Specialty Start Date End Date Yonis Valente MD [address] [place] [address] PCP - General Internal Medicine 05/06/24
--- OUTSIDE RECORDS SUMMARY | 2025-02-04 16:07 | XMS_ITS | Referral Summary ---
Author Organization [facility] Address [address] [place] [address] Care Team Providers Care Straightener Name Role Phone Yonis Valente MD Primary Care Provider [phone] Encounters Date Type Department Care Team Description 12/11/2024 10:30 AM ELA TEACHER Office Visit [facility] Cardiology at [address] [place] [phone] Fabrice Diaz MD Essential hypertension (Primary Dx); Nonrheumatic aortic (valve) stenosis; Mixed hyperlipidemia; History of pulmonary embolism from Last 3 Months Allergies Active Allergy Reactions Criticality Noted Date [...] Active levothyroxine (SYNTHROID) 75 mcg tablet 06/04/20 22 Active traMADol ER (ULTRAM-ER) 200 mg 24 [...] (01/10/2020): Added automatically from request for surgery [id number] Bariatric surgery status 12/28/2018 Immunizations Immunization Administration Dates Next Due H1N1 All Forms 07/15/2016 Influenza, Quadrivalent, Hig h Dose, Preservative Free, Intrr 08/26/2020 Influenza, Quadrivalent, Spl it, Intramuscular 07/26/2017 Influenza, Trivalent, Adjuva nted, Intramuscular 07/24/2019 Influenza, Trivalent, High D ose, Split, Preservative Free, Intramuscular 08/05/2019,08/12/2018,08/11/2018,08/15,07/25/2017,08/12/2015,09/13/2014 Influenza, Trivalent, IM (MDV) 07/30/2013 Influenza, Unspecified 08/22/2022 Moderna SARS-CoV-2 Monovalen t Vaccination (12+ YRS) 09/12/2021,12/27/2020,11/29/2020 ZOSTER Recombinant 10/29/2018, 8,08/21/2018,08/20 Social History Tobacco Use Types Packs/Day Years Used Date Smoking Tobacco: Former Cigarettes 1 15 1 965 - 1980 Smokeless Tobacco: Never Alcohol Use Standard Drinks/Week [...] on file Legal Sex Female 2:19 AM ELA TEACHER Gender Identity Not on file Sexual Orientation Not on file 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 Not on file Not on file 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 Not on file Not on file Last Filed Vital Signs Vital Sign Reading Time Taken Comments Blood Pressure 132/68 12/11/2024 10:16 AM ELA TEACHER Pulse 84 12/11/2024 10:16 AM ELA TEACHER Temperature 37.1 C (98.8 F) 04/18/2024 1:57 PM CDT Respiratory Rate 18 05/06/2024 2:11 PM CDT Oxygen Saturation 98% 12/11/2024 10:16 AM ELA TEACHER Inhaled Oxygen Concentration - - Weight 88.9 kg (196 lb) 12/11/2024 10:16 AM ELA TEACHER Height 165.1 cm (5' 5 ) 12/11/2024 10:16 AM ELA TEACHER Body Mass Index 32.62 12/11/2024 10:16 AM ELA TEACHER Plan of Treatment Not on file Procedures Procedure Name Priority Date/Time Associated Diagnosis Comments ELECTROCARDIOGRAM REPORT Routine 025 3:13 PM ELA TEACHER Nonrheumatic aortic (valve) stenosis COLONOSCOPY REPORT 05/16/2014 from Last 3 Months or Most Recently Relevant to Health Maintenance Results * Electrocardiogram Report (12/11/2024 3:13 PM ELA TEACHER) [facility] Ruben Diaz MD ECG ORDERABLES Final R esult * COLONOSCOPY REPORT (05/16/2014) Anatomical Region Laterality Modality Other Narrative 05/16/2014 Ordered by an unspecified provider. Historical Provider GI PROCEDURE ORDERABLES F inal Result from Last 3 Months or Most Recently Relevant to Health Maintenance Insurance MEDICARE [facility] MEDICARE Address: [facility] [address] [place] [address] [employer] MEDICARE [facility] MEDICARE Advance Directives For more information, please contact: [phone] * Full Code (Latest Code Status on File) Date Activated Date Inactivated Comments 01/23/2020 2:57 PM 01/23/2020 9:12 PM Care Teams Straightener Relationship Specialty Start Date End Date Yonis Valente MD [address] [place] [address] PCP - General Internal Medicine 05/06/24
--- OUTSIDE RECORDS SUMMARY | 2025-02-04 16:08 | XMS_ITS | Clinical Summary ---
Author Organization [facility] Address [address] [facility] Attn: Epic Prelude ADT [place] [address] Care Team Providers Care Algorithm Developer Name Role Phone Wali Banks MD Primary Care Provider [phone] Social History Tobacco Use Types Packs/Day Years Used Date Smoking Tobacco: Never Assessed Comments Unknown Sex and Gender Information Value Date Recorded Sex Assigned at Not on file Legal Sex Female 4:29 AM PRECAST CONCRETE IRONWORKER Gender Identity Not on file Sexual Orientation Not on file Plan of Treatment Health Maintenance Due Date Last Done Comments DTAP/TDAP/TD VACCINES (1 - Tdap) 1963 PNEUMOCOCCAL VACCINE 50+ YEARS (1 of 1 - PCV) 08/27/19 94 ZOSTER VACCINE (1 of 2) 1994 OSTEOPOROSIS SCREENING 2009 RSV VACCINE (60+ or ) (1 - 1-dose 75+ series) 2019 INFLUENZA VACCINE (#1) 2024 Care Teams Algorithm Developer Relationship Specialty Start Date End Date Wali Banks MD [address] [place] [phone] PCP - General 11/07/02
--- OUTSIDE RECORDS SUMMARY | 2025-02-04 16:08 | XMS_ITS | Data Portability ---
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 Torres for an ear pain complete echo for heart murmur follow up 4 months [email or web address] Not available 06/30/2024 15:18:09 09/25/2024 09/25/2024 continuing with anticoagulation hemodynamically she appears to be stable. She has been following with Urology with regards to the renal mass. She has had no side effects from the Eliquis. She will follow up with me in 1 month. Blood pressure is controlled management of her chronic medical problems have been discussed [email or web address] Not available 10/06/2024 15:57:08 10/23/2024 10/23/2024 we will continue current therapy there is no change in medications cardiology to evaluate her aortic valve follow up with me in 3 months [email or web address] Not available 10/27/2024 12:10:22 01/22/2025 01/22/2025 continue current therapy healthy lifestyle care instructions noncontrast CT chest for lung nodule other medicines we will continue coccal vaccination and tetanus Tdap today follows with urology for kidney lesion see me in 3 months Not available 01/23/2025 22:52:32 Plan of Treatment Reminders Order Date Submit Date Provider Last Modified By Organization Details Last Modified Time Details Appointments ANY 15 2024 09:15A M Azul Valente MD Not available Not available Not available Lab PTH (parathyr oid hormone), intact, serum or plasma 2023 024 [facility]UD[facility]PH[facility], [address], [address], [place], [address], 05/24/2024 15:09:31 CBC w/ auto diff 2023 024 [facility]ON[facility] LABHUARP, Darvin [address], [address], [place], [address], 05/24/2024 15:09:30 CMP, serum or plasma 2023 024 [facility] RUDOLPH[facility], [address], [address], [place], [address], 05/24/2024 15:09:29 lipid panel, serum 2023 024 [facility] RUD[facility]PH[facility], [address], [address], [place], [address], 05/24/2024 15:09:28 CMP, serum or plasma 2023 024 [facility]ON[facility] SALEEM, [address]vin [address], [address], [place], [address], 01/27/2024 08:20:06 CBC w/ auto diff 2023 024 [facility]PH[facility], [address], [address], [place], [address], 01/27/2024 08:20:07 lipid panel, serum 2023 024 [facility] SALEEM, Darvin [address], [address], [place], [address], 01/27/2024 08:20:05 T3, free, serum or plasma 2023 024 [facility] RUDOLPH[facility], [address], [address], [place], [address], 01/27/2024 08:20:08 T4, free, serum 2023 024 [facility], [address], [address], [place], [address], 01/27/2024 08:20:08 TSH, ultra-sen sitive, serum 2023 024 [facility], [address], [address], [place], [address], 01/27/2024 08:20:06 Referral cardiolog ist referral 2023 [facility], [address], [place], [address], 12/16/2024 14:41:50 orthopedi c surgeon referral 2023 024 [facility] Bunny Camacho, [address], [place], [address], 05/31/2024 13:29:51 Procedures None recorded. Surgeries None recorded. Imaging CT, chest, w/o contrast 2024 025 [facility] ([facility]), [address], [place], [address], 01/23/2025 10:01:05 US, echocardi ogram 2023 024 [facility], [address], [address], [place], [address], 07/26/2024 11:26:21 Medication Orders Eliquis 5 mg tablet 2023 024 [email or web address] [id number], [address], [place], [address], 10/23/2024 18:23:48 Patient TargetsNo targets recorded. Patient Instructions Encounter Date Encounter Id Patient Instructions Last Modified By Organization Details Last Modified Time 05/22/2024 [id number] A healthy lifestyle: care instructions [email or web address] Not available 05/22/2024 14:47:05 01/22/2025 [id number] A healthy lifestyle: care instructions [email or web address] Not available 01/22/2025 10:48:03 Reason for Referral Orthopedic Surgeon Referral for Pain of bilateral knee joints Referring Physician: Azul Valente, Internal Medicine, Encounter Date: 05/22/2024 Substation Operator Conversion Referral for Ao rtic valve stenosis Referring Physician: Azul Valente, Internal Medicine, Encounter Date: 10/23/2024 Results Created Date Observation Date Name Description Value Unit Range Abnormal Flag Note LastModifiedBy Organization Detail LastModifiedTime 01/26/20 24 01/27/2024 LIPID PANEL cholesterol, total 190 mg/dL 100-19 9 Not Available [facility] ([facility]) [address] [place], [address], 01/27/2024 08:20:05 01/26/20 24 01/27/2024 LIPID PANEL triglyceride s 127 mg/dL 0-149 Not Available [facility] ([facility]) [address] [place], [address], 01/27/2024 08:20:05 01/26/20 24 01/27/2024 LIPID PANEL HDL cholesterol 65 mg/dL >39 Not Available [facility] ([facility]) [address] [place], [address], 01/27/2024 08:20:05 01/26/20 24 01/27/2024 LIPID PANEL VLDL cholesterol cassidy 22 mg/dL 5-40 Not Available [facility] ([facility]) [address] [place], [address], 01/27/2024 08:20:05 01/26/20 24 01/27/2024 LIPID PANEL LDL chol calc ([facility]) 103 mg/dL 0-99 above high normal Not Available [facility] ([facility]) [address] [place], [address], 01/27/2024 08:20:05 01/26/20 24 01/27/2024 COMP. METAB OLIC PANEL (14) glucose 85 mg/dL 70-99 Not Available [facility] ([facility]) [address] [place], [address], 01/27/2024 08:20:05 01/26/20 24 01/27/2024 COMP. METAB OLIC PANEL (14) BUN 17 mg/dL 8-27 Not Available [facility] ([facility]) [address], [address], 01/27/2024 08:20:05 01/26/20 24 01/27/2024 COMP. METAB OLIC PANEL (14) creatinine 1.02 mg/dL 0.57-1 .00 above high normal Not Available [facility] ([facility]) [address] [place], [address], 01/27/2024 08:20:05 01/26/20 24 01/27/2024 COMP. METAB OLIC PANEL (14) eGFR 56 mL/mi n/1.7 3 >59 below low normal Not Available [facility] ([facility]) [address] [place], [address], 01/27/2024 08:20:05 01/26/20 24 01/27/2024 COMP. METAB OLIC PANEL (14) BUN/creatini ne ratio 17 12-28 Not Available [facility] ([facility]) [address] [place], [address], 01/27/2024 08:20:05 01/26/20 24 01/27/2024 COMP. METAB OLIC PANEL (14) sodium 142 mmol/ L 134-14 4 Not Available [facility] ([facility]) [address] [place], [address], 01/27/2024 08:20:05 01/26/20 24 01/27/2024 COMP. METAB OLIC PANEL (14) potassium 4.8 mmol/ L 3.5-5. 2 Not Available [facility] ([facility]) [address] [place], [address], 01/27/2024 08:20:05 01/26/20 24 01/27/2024 COMP. METAB OLIC PANEL (14) chloride 103 mmol/ L 96-106 Not Available [facility] ([facility]) [address], [address], 01/27/2024 08:20:05 01/26/20 24 01/27/2024 COMP. METAB OLIC PANEL (14) carbon dioxide, total 25 mmol/ L 20-29 Not Available [facility] ([facility]) [address] [place], [address], 01/27/2024 08:20:05 01/26/20 24 01/27/2024 COMP. METAB OLIC PANEL (14) calcium 9.4 mg/dL 8.7-10 .3 Not Available [facility] ([facility]) [address] [place], [address], 01/27/2024 08:20:05 01/26/20 24 01/27/2024 COMP. METAB OLIC PANEL (14) protein, total 6.3 g/dL 6.0-8. 5 Not Available [facility] ([facility]) [address] [place], [address], 01/27/2024 08:20:05 01/26/20 24 01/27/2024 COMP. METAB OLIC PANEL (14) albumin 3.8 g/dL 3.8-4. 8 Not Available [facility] ([facility]) [address], [place], [address], 01/27/2024 08:20:05 01/26/20 24 01/27/2024 COMP. METAB OLIC PANEL (14) globulin, total 2.5 g/dL 1.5-4. 5 Not Available [facility] ([facility]) [address] [place], [address], 01/27/2024 08:20:05 01/26/20 24 01/27/2024 COMP. METAB OLIC PANEL (14) A/G ratio 1.5 1.2-2. 2 Not Available [facility] ([facility]) [address] [place], [address], 01/27/2024 08:20:05 01/26/20 24 01/27/2024 COMP. METAB OLIC PANEL (14) bilirubin, total 0.4 mg/dL 0.0-1. 2 Not Available [facility] ([facility]) [address] [place], [address], 01/27/2024 08:20:05 01/26/20 24 01/27/2024 COMP. METAB OLIC PANEL (14) alkaline phosphatase 128 IU/L 44-121 above high normal Not Available [facility] ([facility]) [address] [place], [address], 01/27/2024 08:20:05 01/26/20 24 01/27/2024 COMP. METAB OLIC PANEL (14) AST (SGOT) 19 IU/L 0-40 Not Available [facility] ([facility]) [address] [place], [address], 01/27/2024 08:20:05 01/26/20 24 01/27/2024 COMP. METAB OLIC PANEL (14) ALT (SGPT) 9 IU/L 0-32 Not Available [facility] ([facility]) [address] [place], [address], 01/27/2024 08:20:05 01/26/20 24 01/27/2024 TSH TSH 0.864 uIU/m L 0.450- 4.500 Not Available [facility] ([facility]) [address], [place], [address], 01/27/2024 08:20:06 01/26/20 24 01/27/2024 CBC WITH DIFFE RENTI AL/PL ATELE T WBC 6.9 x10e3 /uL 3.4-10 .8 Not Available [facility] ([facility]) [address], [place], [address], 01/27/2024 08:20:07 01/26/20 24 01/27/2024 CBC WITH DIFFE RENTI AL/PL ATELE T RBC 3.97 x10e6 /uL 3.77-5 .28 Not Available [facility] ([facility]) [address], [place], [address], 01/27/2024 08:20:07 01/26/20 24 01/27/2024 CBC WITH DIFFE RENTI AL/PL ATELE T hemoglobin 12.4 g/dL 11.1-1 5.9 Not Available [facility] ([facility]) [address], [place], [address], 01/27/2024 08:20:07 01/26/20 24 01/27/2024 CBC WITH DIFFE RENTI AL/PL ATELE T hematocrit 38.8 % 34.0-4 6.6 Not Available [facility] ([facility]) [address], [place], [address], 01/27/2024 08:20:07 01/26/20 24 01/27/2024 CBC WITH DIFFE RENTI AL/PL ATELE T MCV 98 fL 79-97 above high normal Not Available [facility] ([facility]) [address] [place], [address], 01/27/2024 08:20:07 01/26/20 24 01/27/2024 CBC WITH DIFFE RENTI AL/PL ATELE T MCH 31.2 pg 26.6-3 3.0 Not Available [facility] ([facility]) [address], [place], [address], 01/27/2024 08:20:07 01/26/20 24 01/27/2024 CBC WITH DIFFE RENTI AL/PL ATELE T MCHC 32.0 g/dL 31.5-3 5.7 Not Available [facility] ([facility]) [address], [place], [address], 01/27/2024 08:20:07 01/26/20 24 01/27/2024 CBC WITH DIFFE RENTI AL/PL ATELE T RDW 13.5 % 11.7-1 5.4 Not Available [facility] ([facility]) [address], [place], [address], 01/27/2024 08:20:07 01/26/20 24 01/27/2024 CBC WITH DIFFE RENTI AL/PL ATELE T platelets 378 x10e3 /uL 150-45 0 Not Available [facility] ([facility]) [address], [place], [address], 01/27/2024 08:20:07 01/26/20 24 01/27/2024 CBC WITH DIFFE RENTI AL/PL ATELE T neutrophils 63 % notest ab. Not Available [facility] ([facility]) [address], [place], [address], 01/27/2024 08:20:07 01/26/20 24 01/27/2024 CBC WITH DIFFE RENTI AL/PL ATELE T lymphs 27 % notest ab. Not Available [facility] ([facility]) [address] [place], [address], 01/27/2024 08:20:07 01/26/20 24 01/27/2024 CBC WITH DIFFE RENTI AL/PL ATELE T monocytes 8 % notest ab. Not Available [facility] ([facility]) [address], [place], [address], 01/27/2024 08:20:07 01/26/20 24 01/27/2024 CBC WITH DIFFE RENTI AL/PL ATELE T eos 2 % notest ab. Not Available [facility] ([facility]) [address], [place], [address], 01/27/2024 08:20:07 01/26/20 24 01/27/2024 CBC WITH DIFFE RENTI AL/PL ATELE T basos 0 % notest ab. Not Available [facility] ([facility]) [address], [place], [address], 01/27/2024 08:20:07 01/26/20 24 01/27/2024 CBC WITH DIFFE RENTI AL/PL ATELE T neutrophils (absolute) 4.3 x10e3 /uL 1.4-7. 0 Not Available [facility] ([facility]) [address], [place], [address], 01/27/2024 08:20:07 01/26/20 24 01/27/2024 CBC WITH DIFFE RENTI AL/PL ATELE T lymphs (absolute) 1.8 x10e3 /uL 0.7-3. 1 Not Available [facility] ([facility]) [address], [place], [address], 01/27/2024 08:20:07 01/26/20 24 01/27/2024 CBC WITH DIFFE RENTI AL/PL ATELE T monocytes(ab solute) 0.6 x10e3 /uL 0.1-0. 9 Not Available [facility] ([facility]) [address], [place], [address], 01/27/2024 08:20:07 01/26/20 24 01/27/2024 CBC WITH DIFFE RENTI AL/PL ATELE T eos (absolute) 0.1 x10e3 /uL 0.0-0. 4 Not Available [facility] ([facility]) [address], [place], [address], 01/27/2024 08:20:07 01/26/20 24 01/27/2024 CBC WITH DIFFE RENTI AL/PL ATELE T baso (absolute) 0.0 x10e3 /uL 0.0-0. 2 Not Available [facility] ([facility]) [address] [place], [address], 01/27/2024 08:20:07 01/26/20 24 01/27/2024 CBC WITH DIFFE RENTI AL/PL ATELE T immature granulocytes 0 % notest ab. Not Available [facility] ([facility]) [address], [place], [address], 01/27/2024 08:20:07 01/26/20 24 01/27/2024 CBC WITH DIFFE RENTI AL/PL ATELE T immature grans (abs) 0.0 x10e3 /uL 0.0-0. 1 Not Available [facility] ([facility]) [address] [place], [address], 01/27/2024 08:20:07 01/26/20 24 01/27/2024 TRIIO DOTHY CALIXTO E (T3), FREE triiodothyro nine (T3), free 2.8 pg/mL 2.0-4. 4 Not Available [facility] ([facility]) [address] [place], [address], 01/27/2024 08:20:07 01/26/20 24 01/27/2024 T4,FR EE(DI RECT) T4,free(dire ct) 1.47 NG/dL 0.82-1 .77 Not Available [facility] ([facility]) [address] [place], [address], 01/27/2024 08:20:08 05/22/20 24 05/23/2024 LIPID PANEL cholesterol, total 182 mg/dL 100-19 9 Not Available [facility] ([facility]) [address] [place], [address], 05/24/2024 15:09:28 05/22/20 24 05/23/2024 LIPID PANEL triglyceride s 92 mg/dL 0-149 Not Available [facility] ([facility]) [address] [place], [address], 05/24/2024 15:09:28 05/22/20 24 05/23/2024 LIPID PANEL HDL cholesterol 81 mg/dL >39 Not Available [facility] ([facility]) [address] [place], [address], 05/24/2024 15:09:28 05/22/20 24 05/23/2024 LIPID PANEL VLDL cholesterol cassidy 16 mg/dL 5-40 Not Available [facility] ([facility]) [address] [place], [address], 05/24/2024 15:09:28 05/22/20 24 05/23/2024 LIPID PANEL LDL chol calc ([facility]) 85 mg/dL 0-99 Not Available [facility] ([facility]) [address] [place], [address], 05/24/2024 15:09:28 05/22/20 24 05/23/2024 COMP. METAB OLIC PANEL (14) glucose 102 mg/dL 70-99 above high normal Not Available [facility] ([facility]) [address] [place], [address], 05/24/2024 15:09:29 05/22/20 24 05/23/2024 COMP. METAB OLIC PANEL (14) BUN 23 mg/dL 8-27 Not Available [facility] ([facility]) [address] [place], [address], 05/24/2024 15:09:29 05/22/20 24 05/23/2024 COMP. METAB OLIC PANEL (14) creatinine 1.35 mg/dL 0.57-1 .00 above high normal Not Available [facility] ([facility]) [address], [place], [address], 05/24/2024 15:09:29 05/22/20 24 05/23/2024 COMP. METAB OLIC PANEL (14) eGFR 40 mL/mi n/1.7 3 >59 below low normal Not Available [facility] ([facility]) [address], [place], [address], 05/24/2024 15:09:29 05/22/20 24 05/23/2024 COMP. METAB OLIC PANEL (14) BUN/creatini ne ratio 17 12-28 Not Available [facility] ([facility]) [address], [place], [address], 05/24/2024 15:09:29 05/22/20 24 05/23/2024 COMP. METAB OLIC PANEL (14) sodium 140 mmol/ L 134-14 4 Not Available [facility] ([facility]) [address] [place], [address], 05/24/2024 15:09:29 05/22/20 24 05/23/2024 COMP. METAB OLIC PANEL (14) potassium 5.0 mmol/ L 3.5-5. 2 Not Available [facility] ([facility]) [address], [place], [address], 05/24/2024 15:09:29 05/22/20 24 05/23/2024 COMP. METAB OLIC PANEL (14) chloride 102 mmol/ L 96-106 Not Available [facility] ([facility]) [address] [place], [address], 05/24/2024 15:09:29 05/22/20 24 05/23/2024 COMP. METAB OLIC PANEL (14) carbon dioxide, total 21 mmol/ L 20-29 Not Available [facility] ([facility]) [address] [place], [address], 05/24/2024 15:09:29 05/22/20 24 05/23/2024 COMP. METAB OLIC PANEL (14) calcium 9.5 mg/dL 8.7-10 .3 Not Available [facility] ([facility]) [address] [place], [address], 05/24/2024 15:09:29 05/22/20 24 05/23/2024 COMP. METAB OLIC PANEL (14) protein, total 6.7 g/dL 6.0-8. 5 Not Available [facility] ([facility]) [address] [place], [address], 05/24/2024 15:09:29 05/22/20 24 05/23/2024 COMP. METAB OLIC PANEL (14) albumin 4.2 g/dL 3.8-4. 8 Not Available [facility] ([facility]) [address] [place], [address], 05/24/2024 15:09:29 05/22/20 24 05/23/2024 COMP. METAB OLIC PANEL (14) globulin, total 2.5 g/dL 1.5-4. 5 Not Available [facility] ([facility]) [address] [place], [address], 05/24/2024 15:09:29 05/22/20 24 05/23/2024 COMP. METAB OLIC PANEL (14) bilirubin, total 0.6 mg/dL 0.0-1. 2 Not Available [facility] ([facility]) [address] [place], [address], 05/24/2024 15:09:29 05/22/20 24 05/23/2024 COMP. METAB OLIC PANEL (14) alkaline phosphatase 124 IU/L 44-121 above high normal Not Available [facility] ([facility]) [address], [place], [address], 05/24/2024 15:09:29 05/22/20 24 05/23/2024 COMP. METAB OLIC PANEL (14) AST (SGOT) 23 IU/L 0-40 Not Available [facility] ([facility]) [address], [place], [address], 05/24/2024 15:09:29 05/22/20 24 05/23/2024 COMP. METAB OLIC PANEL (14) ALT (SGPT) 12 IU/L 0-32 Not Available [facility] ([facility]) [address], [place], [address], 05/24/2024 15:09:29 05/22/20 24 05/23/2024 CBC WITH DIFFE RENTI AL/PL ATELE T WBC 9.0 x10e3 /uL 3.4-10 .8 Not Available [facility] ([facility]) [address], [place], [address], 05/24/2024 15:09:30 05/22/20 24 05/23/2024 CBC WITH DIFFE RENTI AL/PL ATELE T RBC 4.03 x10e6 /uL 3.77-5 .28 Not Available [facility] ([facility]) [address], [place], [address], 05/24/2024 15:09:30 05/22/20 24 05/23/2024 CBC WITH DIFFE RENTI AL/PL ATELE T hemoglobin 12.5 g/dL 11.1-1 5.9 Not Available [facility] ([facility]) [address], [place], [address], 05/24/2024 15:09:30 05/22/20 24 05/23/2024 CBC WITH DIFFE RENTI AL/PL ATELE T hematocrit 38.3 % 34.0-4 6.6 Not Available [facility] ([facility]) [address], [place], [address], 05/24/2024 15:09:30 05/22/20 24 05/23/2024 CBC WITH DIFFE RENTI AL/PL ATELE T MCV 95 fL 79-97 Not Available [facility] ([facility]) [address], [place], [address], 05/24/2024 15:09:30 05/22/20 24 05/23/2024 CBC WITH DIFFE RENTI AL/PL ATELE T MCH 31.0 pg 26.6-3 3.0 Not Available [facility] ([facility]) [address], [place], [address], 05/24/2024 15:09:30 05/22/20 24 05/23/2024 CBC WITH DIFFE RENTI AL/PL ATELE T MCHC 32.6 g/dL 31.5-3 5.7 Not Available [facility] ([facility]) [address], [place], [address], 05/24/2024 15:09:30 05/22/20 24 05/23/2024 CBC WITH DIFFE RENTI AL/PL ATELE T RDW 13.4 % 11.7-1 5.4 Not Available [facility] ([facility]) [address], [place], [address], 05/24/2024 15:09:30 05/22/20 24 05/23/2024 CBC WITH DIFFE RENTI AL/PL ATELE T platelets 405 x10e3 /uL 150-45 0 Not Available [facility] ([facility]) [address], [place], [address], 05/24/2024 15:09:30 05/22/20 24 05/23/2024 CBC WITH DIFFE RENTI AL/PL ATELE T neutrophils 78 % notest ab. Not Available [facility] ([facility]) [address], [place], [address], 05/24/2024 15:09:30 05/22/20 24 05/23/2024 CBC WITH DIFFE RENTI AL/PL ATELE T lymphs 16 % notest ab. Not Available [facility] ([facility]) [address], [place], [address], 05/24/2024 15:09:30 05/22/20 24 05/23/2024 CBC WITH DIFFE RENTI AL/PL ATELE T monocytes 5 % notest ab. Not Available [facility] ([facility]) [address], [place], [address], 05/24/2024 15:09:30 05/22/20 24 05/23/2024 CBC WITH DIFFE RENTI AL/PL ATELE T eos 1 % notest ab. Not Available [facility] ([facility]) [address], [place], [address], 05/24/2024 15:09:30 05/22/20 24 05/23/2024 CBC WITH DIFFE RENTI AL/PL ATELE T basos 0 % notest ab. Not Available [facility] ([facility]) [address], [place], [address], 05/24/2024 15:09:30 05/22/20 24 05/23/2024 CBC WITH DIFFE RENTI AL/PL ATELE T neutrophils (absolute) 7.0 x10e3 /uL 1.4-7. 0 Not Available [facility] ([facility]) [address], [place], [address], 05/24/2024 15:09:30 05/22/20 24 05/23/2024 CBC WITH DIFFE RENTI AL/PL ATELE T lymphs (absolute) 1.5 x10e3 /uL 0.7-3. 1 Not Available [facility] ([facility]) [address] [place], [address], 05/24/2024 15:09:30 05/22/20 24 05/23/2024 CBC WITH DIFFE RENTI AL/PL ATELE T monocytes(ab solute) 0.5 x10e3 /uL 0.1-0. 9 Not Available [facility] ([facility]) [address], [place], [address], 05/24/2024 15:09:30 05/22/20 24 05/23/2024 CBC WITH DIFFE RENTI AL/PL ATELE T eos (absolute) 0.1 x10e3 /uL 0.0-0. 4 Not Available [facility] ([facility]) [address] [place], [address], 05/24/2024 15:09:30 05/22/20 24 05/23/2024 CBC WITH DIFFE RENTI AL/PL ATELE T baso (absolute) 0.0 x10e3 /uL 0.0-0. 2 Not Available [facility] ([facility]) [address], [place], [address], 05/24/2024 15:09:30 05/22/20 24 05/23/2024 CBC WITH DIFFE RENTI AL/PL ATELE T immature granulocytes 0 % notest ab. Not Available [facility] ([facility]) [address] [place], [address], 05/24/2024 15:09:30 05/22/20 24 05/23/2024 CBC WITH DIFFE RENTI AL/PL ATELE T immature grans (abs) 0.0 x10e3 /uL 0.0-0. 1 Not Available [facility] ([facility]) [address] [place], [address], 05/24/2024 15:09:30 05/22/20 24 05/24/2024 PTH, INTAC T PTH, intact 86 pg/mL 15-65 above high normal Not Available [facility] ([facility]) [address] [place], [address], 05/24/2024 15:09:31 03/28/20 24 03/27/2024 MAMMO , scree nadine, digit al, bilat eral No observ ation record ed. [email or web address] [facility] [address], [place], [address], 04/04/2024 15:39:40 06/29/20 24 06/29/2024 CT, lumba r spine , w/o contr ast No observ ation record ed. [address] [facility] [address], [place], [address], 07/07/2024 10:26:50 07/10/20 24 07/10/2024 XR, shoul sagar No observ ation record ed. [facility] [address], [place], [address], 07/15/2024 10:44:26 07/26/20 24 07/25/2024 US, echoc ardio gram No observ ation record ed. [facility] [address] [facility] [address], [place], [address], 07/29/2024 17:35:58 09/11/20 24 09/11/2024 XR, chest , 2 view No observ ation record ed. [facility] [address] [facility] [address], [place], [address], 09/12/2024 09:53:27 09/11/2009/11/2024 US, doppl er, venou s No observ ation record ed. [facility] [address] [facility] [address], [place], [address], 09/12/2024 09:58:34 09/11/20 24 09/11/2024 CT, angio gram, chest , w/wo contr ast No observ ation record ed. [facility] [address] [facility] [address], [place], [address], 09/12/2024 12:27:58 09/12/20 24 09/11/2024 US, echoc ardio gram No observ ation record ed. [facility] [address], [place], [address], 09/14/2024 23:39:43 10/28/20 24 10/28/2024 CT, abdom en, w/wo contr ast No observ ation record ed. [facility] [address], [place], [address], 10/29/2024 09:54:40 11/22/19 25 07/19/2021 DEXA No observ ation record ed. [email or web address] Not Available 2024 11:03:02 Result Notes None recorded. Problems Name Problem SNOMED Code Status Onset Date Resolution Date Notes Provider Name and Address Organization Details Recorded Time Essential hypertensio n 70344750 Active 2023 Azul Valente MD Attn: Whit lucas,[address] [place], [address], [place] - [facility] 4 21:07:16 Hypothyroid ism 65350811 Active 2023 Azul Valente MD Attn: Whit lucas,[address] [place], [address], [place] [facility] 4 21:07:30 Gastroesoph ageal reflux disease 122839232 Active 2023 Azul Valente MD Attn: Whit lucas,[address] [place], [address], [place] [facility] 4 21:07:20 Hyperlipide edward 97782204 Active 2023 zAul Valente MD Attn: Whit lucas,[address] [place], [address], [place] [facility] 4 21:07:26 Chronic low back pain 616944173 Active 2023 Azul Valente MD Attn: Whit lucas,[address] [place], [address], [place] [facility] 4 21:07:10 Hyperparath yroidism 92503020 Active 2023 Azul Valente MD Attn: Whit lance,[address] [facility], [place], [address], [place] [facility] 4 15:17:48 Pain of bilateral knee joints 3589527924035 04 Active 2023 Azul Valente MD Attn: Whit lucas,[address] [facility], [place], [address], [place] [facility] 4 15:17:49 Heart murmur 97069330 Active 2023 Azul Valente MD Attn: Whit lucas,[address] [facility], [place], [address], [place] [facility] 4 15:17:51 Obesity 660232240 Active 2023 Azul Valente MD Attn: Whit lucas,[address] [facility], [place], [address], [place] [facility] 4 15:17:53 Hyponatremi a 19700980 Active 2023 Azul Valente MD Attn: Whit lucas,[address] [facility], [place], [address], [place] [facility] 4 15:18:16 Nodule of lung 621058317 Active 2024 Maribel Moe [place] null, [place] [facility] 5 09:56:42 Aortic valve stenosis 50301311 Active 2024 Azul Valente MD Attn: Whit lucas,[address] [facility], [place], [address], [place] [facility] 5 22:51:01 Problem Notes None recorded. Procedures Surgical History Date Name Laterality Status Provider Name and Address Organization Details Recorded Time 08/24/20 colonoscopy completed Arelis Jeffers LPN [place] - [facility] 04/16/2024 11:44:02 Cholecystectomy completed Deepali Roper MA RIAN - [facility] 01/26/2024 11:04:41 Gastric Bypass completed ERICK Colunga - [facility] 01/26/2024 11:04:55 Tubal Ligation completed ERICK Colunga SIKaylee 01/26/2024 11:05:03 Imaging Results Imaging Date Name Status LastModified by Organization Details LastModified Time 03/27/2024 MAMMO, screening, digital, bilateral completed [email or web address] [facility] [address] [place], [address], 04/04/2024 15:39:40 06/29/2024 CT, lumbar spine, w/o contrast completed [address] [place] [address], [address], 07/07/2024 10:26:50 07/10/2024 XR, shoulder completed [facility] [address], [place], [address], 07/15/2024 10:44:26 07/25/2024 US, echocardiogram completed [facility] [address] [facility] [address], [place], [address], 07/29/2024 17:35:58 09/11/2024 XR, chest, 2 view completed [address], [address], 09/12/2024 09:53:27 09/11/2024 US, doppler, venous completed [address] [place] [address], [address], 09/12/2024 09:58:34 09/11/2024 CT, angiogram, chest, w/wo contrast completed [address], [address], 09/12/2024 12:27:58 09/11/2024 US, echocardiogram completed [address], [address], 09/14/2024 23:39:43 10/28/2024 CT, abdomen, w/wo contrast completed [facility] [address] [facility] [address], [place], [address], 10/29/2024 09:54:40 07/19/2021 DEXA completed [facility] Information no t available 11/22/2024 11:03:02 Procedure Notes None recorded. Medical Equipment None Reported. Allergies Allergen ID Allergen Name Allergen Category Reaction Reaction Severity Criticality Documentation Date Start Date Code Code System Note Provider Name and Address Organization Details Recorded Time 711931 Product containin g penicilli n (product) medicatio n rash Not available Not available 01/26/2024 05195 8001 SNOMED Not Available Not Available Not Available 297585 Substance with sulfonami de structure and antibacte rial mechanism of action (substanc e) medicatio n Not available Not available Not available 01/26/2024 11797 8003 SNOMED Not Available Not Available Not Available Medications Name Sig Start Date Stop Date Status Note LastModified by Organization Details LastModified Time buspirone 5 mg tablet TAKE 1 TABLET BY MOUTH TWICE A DAY active Not Available Not Available No t Available atorvasta tin 10 mg tablet TAKE 1 TABLET DAILY active Not Available Not Available No t Available amlodipin e 5 mg tablet TAKE 1 TABLET DAILY active Not Available Not Available No t Available allopurin ol 100 mg tablet TAKE 1 TABLET DAILY active Not Available Not Available No t Available tramadol 50 mg tablet TAKE 1 TABLET BY MOUTH TWICE A DAY NEEDED AT LEAST FOUR HOURS APART FROM TRAMADOL ER active Not Available Not Available No t Available triamtere ne 37.5 mg-hydroc hlorothia zide 25 mg capsule TAKE 1 CAPSULE DAILY active Not Available Not Available No t Available levothyro xine 75 mcg tablet TAKE 1 TABLET DAILY active Not Available Not Available No t Available famotidin e 20 mg tablet TAKE 1 TABLET TWICE A DAY active Not Available Not Available No t Available tamsulosi n 0.4 mg capsule TAKE 1 CAPSULE BY MOUTH EVERY DAY 01/22 completed Not Available Not Available Not Available pantopraz ole 40 mg tablet,de layed release Take 1 tablet by mouth every day 05/28 completed Not Available Not Available Not Available difloraso ne 0.05 % topical cream 01/22 completed Not Available Not Available Not Available scopolami ne 1 mg over 3 days transderm al patch APPLY 1 PATCH 4 HOURS BEFORE CRUISE. CHANGE EVERY 72 HOURS active Not Available Not Available No t Available methylpre dnisolone 4 mg tablets in a dose pack TAKE 6 TABLETS ON DAY 1 DIRECTED ON PACKAGE AND DECREASE BY 1 TAB EACH DAY FOR A TOTAL OF 6 DAYS 09/25 completed Not Available Not Available Not Available ondansetr on 4 mg disintegr ating tablet PLACE 1 TABLET ON THE TONGUE AND ALLOW TO DISSOLVE TWO TIMES A DAY ASNEEDED active Not Available Not Available No t Available levothyro xine 05/22 completed 75 mcg daily Duplicat e Not Available Not Available Not Available betahisti ne (bulk) 8mg by mouth 4 times daily active Not Available Not Available No t Available tramadol ER 200 mg tablet,ex tended release 24 hr TAKE 1 TABLET BY MOUTH EVERY DAY FOR 30 DAYS *MAY FILL 12/30/24* active Not Available Not Available No t Available Eliquis 5 mg tablet TAKE 1 TABLET BY MOUTH TWICE A DAY active Not Available Not Available No t Available Vitals Date Recorded Body weight Heart rate Oxygen saturation Oxygen saturation in Arterial blood by Pulse oximetry Systolic blood pressure Diastolic blood pressure Provider Name and Address Organization Details Last Updated DateTime 4 [address]20.7 4 g 76 /min 96 % 96 % 126 mm[Hg] 62 mm[Hg] Deepali Roper MA [place] - [facility] 4 11:07:48 Date Recorded Body height Body mass index (BMI) Body weight Heart rate Oxygen saturation Oxygen saturation in Arterial blood by Pulse oximetry Systolic blood pressure Diastolic blood pressure Provider Name and Address Organization Details Last Updated DateTime 4 165.1 cm 34 kg/m2 10684.2 g 85 /min 97 % 97 % 126 mm[Hg] 62 mm[Hg] Ingrid Polanco MA [place] - [facility] 4 11:47:37 Date Recorded Body height Body mass index (BMI) Body weight Heart rate Oxygen saturation Oxygen saturation in Arterial blood by Pulse oximetry Systolic blood pressure Diastolic blood pressure Provider Name and Address Organization Details Last Updated DateTime 4 165.1 cm 32.8 kg/m2 82474.7 7 g 80 /min 98 % 98 % 130 mm[Hg] 68 mm[Hg] [facility] 4 09:47:02 Date Recorded Body height Body mass index (BMI) Body weight Heart rate Oxygen saturation Oxygen saturation in Arterial blood by Pulse oximetry Systolic blood pressure Diastolic blood pressure Provider Name and Address Organization Details Last Updated DateTime 4 165.1 cm 33 kg/m2 69880.3 7 g 71 /min 97 % 97 % 122 mm[Hg] 68 mm[Hg] [facility] 4 15:27:37 Date Recorded Body height Body mass index (BMI) Body weight Heart rate Oxygen saturation Oxygen saturation in Arterial blood by Pulse oximetry Systolic blood pressure Diastolic blood pressure Provider Name and Address Organization Details Last Updated DateTime 5 165.1 cm 33.4 kg/m2 77090.9 9 g 82 /min 95 % 95 % 128 mm[Hg] 72 mm[Hg] Renate Flynn MA [facility] 5 09:26:22 Social History Question Answer Notes LastModified by [employer] ion Details LastModified Time Tobacco Smoking Status Former Smoker Deepali Roper MA [facility] 01/26/2024 11:04:24 Do You Have An Advance Directive? Yes Information not available 05/22/2024 What Is Your Level Of Alcohol Consumption? Occasional Information not available 01/26/2024 Are You Blind Or Do You Have Difficulty Seeing? No Reading Glasses Information not available 05/22/2024 What Is Your Level Of Caffeine Consumption? Occasional Information not available 01/26/2024 In The 14 Days Before Symptom Onset, Have You Had Close Contact With A Laboratory-confir med COVID-19 While That Case Was Ill? No Information not available 05/22/2024 In The 14 Days Before Symptom Onset, Have You Had Close Contact With A Person Who Is Under Investigation For COVID-19 While That Person Was Ill? No Information not available 05/22/2024 Have You Been To An Area Known To Be High Risk For COVID-19? No Information not available 05/22/2024 Are You Currently Employed? No Information not available 05/22/2024 Are You Deaf Or Do You Have Serious Difficulty Hearing? Yes Information not available 05/22/2024 What Type Of Diet Are You Following? REGULAR Information not available 05/22/2024 Are There Any Guns Present In Your Home? No Information not available 05/22/2024 What Was The Date Of Your Most Recent Tobacco Screening? 01/22/2025 [email or web address] Information not available 01/22/2025 What Is Your Relationship Status? Information not available 05/22/2024 Do You Use Your Seat Belt Or Car Seat Routinely? Yes Information not available 05/22/2024 Do You Have Smoke And Carbon Monoxide Detectors In Your Home? Yes Information not available 05/22/2024 Do You Use Any Illicit Or Recreational Drugs? No Information not available 01/26/2024 Do You Use Sunscreen Routinely? Yes Information not available 05/22/2024 Has Tobacco Cessation Counseling Been Provided? No Information not available 01/26/2024 Do You Or Have You Ever Used Any Other Forms Of Tobacco Or Nicotine? No Information not available 01/26/2024 Sex: Female Functional Status Question Answer Note LastModified by Organization D etails LastModified Time Are you able to care for yourself? Yes Information n ot available 05/22/2024 What is your exercise level? None Information not available 05/22/2024 Mental Status None recorded. Family History Relationship Description Onset Age of this Age Resolved Age Notes LastModified by Organization Details LastModified Time Mother Malignant tumor of breast [email or web address] Not available 2023 11:02:41 Mother Malignant tumor of colon [email or web address] Not available 2023 11:03:05 Mother Heart disease [email or web address] Not available 2023 11:03:25 Father Heart disease [email or web address] Not available 2023 11:03:25 Medical History Condition Response High Blood Pressure Y High Cholesterol Y Gynecological HistoryNo gynecological history recorded. Obstetrics History GPAL:G 0 P 0 0 0 0 Immunizations Vaccine Type Date Status Note Provider Nam e and Address Organization Details Recorded Time Influenza, adjuvanted, trivalent, PF 9 completed Maribel M[place], [place] [facility] 09/25/2024 14:25:59 zoster recombinant 8 completed Maribel [place] [facility] 09/25/2024 14:25:59 zoster recombinant 8 completed Maribel M[place] [facility] 09/25/2024 14:25:59 zoster recombinant 8 completed Maribel M[place] [facility] 09/25/2024 14:25:59 Influenza, high-dose, quadrivalent, PF 2 completed Maribel M[place] [facility] 09/25/2024 14:25:59 Influenza, high-dose, quadrivalent, PF 1 completed Maribel M[place] [facility] 09/25/2024 14:25:59 Influenza, adjuvanted, quadrivalent, PF 3 completed Maribel M[place] [facility] 09/25/2024 14:25:59 COVID-19, mRNA, LNP-S, PF, 100 mcg/0.5mL dose or 50 mcg/0.25mL dose 1 completed Maribel M[place] [facility] 09/25/2024 14:25:59 COVID-19, mRNA, LNP-S, PF, 100 mcg/0.5mL dose or 50 mcg/0.25mL dose 1 completed Maribel M[place] [facility] 09/25/2024 14:25:59 COVID-19, mRNA, LNP-S, PF, 100 mcg/0.5mL dose or 50 mcg/0.25mL dose 2 completed Maribel [place] [facility] 09/25/2024 14:25:59 COVID-19, mRNA, LNP-S, PF, 100 mcg/0.5mL dose or 50 mcg/0.25mL dose 1 completed Maribel [place] [facility] 09/25/2024 14:25:59 COVID-19, mRNA, LNP-S, bivalent, PF, 50 mcg/0.5 mL or 25mcg/0.25 mL dose 2 completed [place] [facility] 09/25/2024 14:25:59 RSV, recombinant, protein subunit RSVpreF, adjuvant reconstituted, 0.5 mL, PF 3 completed [place] [facility] 09/25/2024 14:26:00 COVID-19, mRNA, LNP-S, PF, 50 mcg/0.5 mL 3 [place] [facility] 09/25/2024 14:26:00 influenza, unspecified formulation 6 [place] [facility] 09/25/2024 14:26:00 Novel Shfkyomwa-[id number], all formulations 6 completed [place] [facility] 09/25/2024 14:26:00 Influenza, high-dose, trivalent, PF 7 completed [place] [facility] 09/25/2024 14:26:00 Influenza, high-dose, trivalent, PF 8 [place] [facility] 09/25/2024 14:26:00 Influenza, high-dose, trivalent, PF 5 [place]ICK [place] [facility] 09/25/2024 14:26:00 Influenza, high-dose, trivalent, PF 7 [place] [facility] 09/25/2024 14:26:00 Influenza, high-dose, trivalent, PF 4 [place] [facility] 09/25/2024 14:26:00 Influenza, split virus, trivalent, preservative 3 completed [place] [facility] 09/25/2024 14:26:00 zoster recombinant 4 completed Maribel M[place] [facility] 10/23/2024 17:53:16 zoster recombinant 4 completed Maribel [place] [facility] 10/23/2024 17:53:16 COVID-19, mRNA, LNP-S, PF, vanessa-sucrose, 30 mcg/0.3 mL 4 completed Adelaida [place] [facility] 11/22/2024 10:55:13 Influenza, high-dose, trivalent, PF 4 completed Adela[place] [facility] 11/22/2024 10:55:13 Tdap 5 completed Azul Valente MD Attn: Accounting[address] [place], [address], [place] [facility] 01/23/2025 22:48:19 Pneumococcal conjugate PCV20, polysaccharide [id number] conjugate, adjuvant, PF 5 completed Azul Valente MD Attn: Account[address] [place], [address], [place] [facility] 01/23/2025 22:48:19 Past Encounters Encounter ID Performer Location Encounter Start Date Encounter Closed Date Diagnosis/Indication Diagnosis SNOMED-CT Code Diagnosis ICD10 Code Diagnosis Note [id number] MD Dalila Odom (Adult Med) [address] [place] [address] 01/26/2024 10:32:11 01/26/2024 12:02:32 Essential hypertension 87680118 I10 Hypothyroidism 22925207 E03.9 Gastroesop hageal reflux disease 658435623 K21.9 Hyperlipidemia 82466258 E78.5 Chronic low back pain 27 3648218 M54.50 [id number] MD Dalila Odom (Adult Med) [address] [place] [address] 05/22/2024 11:25:42 05/22/2024 12:54:00 Essential hypertension 34952520 I10 Hyperlipidemia 11445978 E78.5 Hypothyroidism 23123462 E03.9 Hyperparathyroidism 6699 9008 E21.3 Pain of bi lateral knee joints 1807938485 14638 M25.561 M25.562 Heart murmur 28861167 R0 1.1 Obesity 400602677 E66.8 Hyponatremia 18209969 E8 7.1 [id number] MD Dalila Odom (Adult Med) [address] [place] [address] 09/25/2024 09:27:32 09/25/2024 10:18:58 History of pulmonary embolus 046312649 Z86.711 Hyperlipidemia 12297229 E78.5 Hypothyroidism 28655150 E03.9 Gastroesop hageal reflux disease 782898161 K21.9 Essential hypertension 45160563 I10 Renal mass 888573088 N28 .89 Nodule of lung 321292530 R91.1 [id number] MD Dalila Odom (Adult Med) [address] [place] [phone] 10/23/2024 14:34:59 10/23/2024 16:56:07 Body mass index 30+ - obesity 804005436 Z68.33 Hyperlipidemia 13718041 E78.5 Hypothyroidism 90953447 E03.9 Essential hypertension 04161217 I10 Aortic valve stenosis 60 511929 I35.0 Renewal of prescription 058347768 Z76.0 History of pulmonary embolus 894971415 Z86.837 [id number] Azul Valente MD [facility] (Adult Med) [address] [place] [phone] 01/22/2025 09:12:34 01/22/2025 09:58:33 Body mass index 30+ - obesity 474212722 Z68.33 Obesity 764443274 E66.9 Nodule of lung 635001657 R91.1 Administra tion of pneumococcal vaccine 87723244 Z23 Administra tion of diphtheria, pertussis, and tetanus vaccine 283010320 Z23 Hypothyroidism 36099092 E03.9 Gastroesop hageal reflux disease 134938953 K21.9 Hyperlipidemia 55599316 E78.5 Chronic low back pain 27 1270209 M54.50 Hyponatremia 99830323 E8 7.1 Renal mass 532094795 N28 .89 follows with Urology Health Concerns Section Related Observation LastModified by Organization Detai ls LastModified Time None Recorded Concern Status LastModified by Organization Details LastModified Time None Recorded Advance Directives Directive Y: Payers Encounter Date Sequence Insurance Name Policy Number Policy Garcia Covered Member ID Garcia Member ID Guarantor Name 01/26/2024 1 [employer] (MEDICARE REPLACEMENT PPO) [id number] An Rameyd [id number] An Kate 05/22/2024 1 [employer] (MEDICARE REPLACEMENT PPO) [id number] 1 An Rameyd [id number] An Kate 09/25/2024 1 [employer] (MEDICARE REPLACEMENT PPO) [id number] 1 An Rameyd [id number] An Kate 10/23/2024 1 [employer] (MEDICARE REPLACEMENT PPO) [id number] 1 An Rameyd [id number] An Humble 01/22/2025 1 [employer] (MEDICARE REPLACEMENT PPO) [id number] 1 An Rameyd [id number] An Kate Notes Date Note Type Note Provider Name and Address Organization Details Recorded Time 01/26/2024 text/html Hypothyroid: Cur rent no nausea no vomiting hyperlipidemia taking her medication follow low-fat diet chronic back pain still goes to pain management has been doing fine Azul Valente MD Attn: Accounting[address] [place], [address], [facility] 01/27/2024 21:10:07 05/22/2024 text/html Hypothyroid: Cur rent no nausea no vomiting hyperlipidemia taking her medication follow low-fat diet chronic back pain still goes to pain management has been doing fine. Been having bilateral knee pain for awhile weight Azul Valente MD Attn: Accounting[address] [place], [address], [facility] - [facility] 06/30/2024 15:19:33 09/25/2024 text/html 1. DVT right low er extremity no pain some swelling. 2. Bilateral PE breathing has been stable she has not had shortness of breath not coughing up any blood. GERD no nausea no vomiting hypothyroidism energy level is fair hypertension blood pressure is controlled renal mass following up with Urology. Azul Valente MD Attn: Accounting[address] [place], [address], [facility] - [facility] 10/06/2024 15:57:32 10/23/2024 text/html hypothyroid no h eat or cold intolerance . aortic valve stenosis asymptomatic no chest pain no CHF no syncope. Hyperlipidemia she is taking her medicine trying to follow a low-fat diet. She fell and has a bump on her leg does not really hurt no injury otherwise. history of pulmonary embolus breathing is fine no hemoptysis. Her anxiety is improved. Azul Valente MD Attn: Accounting[address] , [place], [address], [facility] 10/27/2024 12:10:42 01/22/2025 text/html history of PE st able lung lesion needs follow up hypothyroid no heat or cold intolerance energy fair GERD no nausea no vomiting gout taking allopurinol no flare-ups hypertension blood pressure is well controlled. Chronic back pain stable on medications history of hyponatremia asymptomatic at this time right lower extremity DVT stable moderate aortic stenosis asymptomatic Azul Valente MD Attn: Accounting[address] , [place], [address], [facility] 01/23/2025 22:52:51 OBGyn Episode No OBEpisode recorded.
--- OUTSIDE RECORDS SUMMARY | 2025-02-04 16:08 | XMS_ITS | Data Portability ---
Author Organization [place] - [facility] [employer], Main Office Address [address] [place] [address] Care Team Providers Care Program Project Manager Name Role Phone AZUL VALENTE Primary Care Provider [phone] Assessment Encounter Date Assessment Date Assessment LastModified by Organization Details LastModified Time 07/19/2023 07/19/2023 Will continue current therapy and follow up with me in 4 months Not available 07/23/2023 16:37:21 11/08/2023 11/08/2023 Continue current therapy will follow-up me in 4 months [email or web address] Not available 11/08/2023 13:35:51 03/11/2024 03/11/2024 Assessment: Mild OSAHS, AHI = 9 Early REM onset Plan: The following were reviewed and explained to the patient: primary care/referral note [facility] home sleep study 01/19/17 AHI = 9 [facility] titration sleep study 02/01/17 sleep onset = 24 minutes, REM onset = 86 minutes, ResMed medium AirFit N10 nasal mask @ 8 cmH2O, PLMI = 1 PAP compliance downloaded and interpreted x 20 minutes. Data reviewed and explained to the patient. Average apnea/hypopnea index (AHI) is 3.0. Patient used PAP > 4 hours 76% of the time. PAP is set at 9 cmH2O. PAP will remain at 9 cmH2O. Keep EPR +1. Keep ramp start at 4 cmH2O. Keep ramp duration at 20 minutes. Keep humidifier level at 5. Keep tube temperature at 82 F. Oxygen supplementation: none Patient is benefiting from PAP therapy. Encouraged patient to maintain PAP use more than 70% of the time. Statement of PAP use and benefits will be sent to the home care store. Educated the patient on problems and solutions associated with positive airway pressure (PAP) use. Difficulty tolerating pressure, mask leaks, intolerance of interface, nasal congestion, claustrophobic response, dry mouth, and unintentional mask removal during sleep were covered. Provided the patient with a list of local home care stores where positive airway pressure (PAP) units, accoutrement, and services are available. Home care store selection is based on patient's insurance carrier. Patient will setup an appointment with [facility] for supplies and pressure adjustments. A major predictor of success with use of PAP is follow-up with both the respiratory supplier and the treating physician. The respiratory supplier optimally will follow-up within two weeks after starting use while the treating physician optimally will follow-up within 90 days after starting therapy to assess adherence and effectiveness of treatment. The download results can show the treating physician information about adherence to treatment, residual AHI while on treatment and presence of large mask leakage. This information is especially helpful if the patient has residual sleepiness despite treatment. General information on sleep disordered breathing, evaluation of sleep disordered breathing, treatment with PAP therapy, and living with PAP therapy were covered. We discussed with the patient the impact of weight on: Sleep disordered breathing Hypertension Hyperlipidemia COURTNEY Hip osteopenia Gout Left Achilles tendonitis We discussed with the patient the benefit of PAP therapy on: Sleep disordered breathing Vertigo RVSP 50 mmHg Mod TR Mild LAVERN Hypertension COURTNEY Educated the patient on sleep hygiene measures. Relaxing rituals to rest easy, understanding foods with positive and negative impact on sleep, creating a peaceful sleep environment, timing of exercise, using herbal sleep aids, and practicing sleep-friendly meditation were covered. To determine how much sleep is needed, the patient will assess where she falls on the spectrum, examine what lifestyle factors such as work schedules and stress are affecting the quality and quantity of sleep. In general, adults need 7-9 hours of sleep. Educated the patient regarding foods that promote sleep. These include but are not limited to cherries, bananas, toast, oatmeal, and warm milk. Educated the patient regarding foods and drinks to avoid before bedtime. These include but are not limited to aged cheese, chocolate, spicy foods, tomato-based sauces, soy, ginseng tea and processed meat. Advocated influenza vaccination annually and pneumonia vaccination MONIQUE. Advocated weight loss through diet and exercise. Patient's ideal body weight according to height and gender is up to 135 lbs. Encouraged patient to adjust caloric intake to maintain/achieve ideal body weight, emphasizing on fruits, vegetables, whole grains, and fat-free or low-fat products. These include lean meats, poultry, fish, beans, eggs, and nuts and foods that are low in saturated fats, trans-fats, cholesterol, salt (sodium), and glycemic index. Stressed the importance of regular exercise up to the patient's capacity limits. In this case, we recommend regular (4 x a week or more) walking or other light activity. Patient to monitor BP daily and bring records to PCP for further management. Follow-up: 1 year, February 2025 Not available 03/11/2024 10:40:11 Plan of Treatment Reminders Order Date Submit Date Provider Last Modified By Organization Details Last Modified Time Details Appointments Establish ed Patient 15 2024 09:00A Shana Adamson MD Not available Not available Not available Lab CBC w/ auto diff [address] (Lab), [address] [place], [address], 07/19/2023 16:35:25 lipid panel, serum [address] (Lab), [address] [place], [address], 07/19/2023 16:35:25 CMP, serum or plasma [address] (Lab), [address] [place], [address], 07/19/2023 16:35:25 Referral None recorded. Procedures None recorded. Surgeries None recorded. Imaging None recorded. Medication Orders None recorded. Patient TargetsNo targets recorded. Patient InstructionsNo instructions recorded. Reason for Referral None Reported. Results Created Date Observation Date Name Description Value Unit Range Abnormal Flag Note LastModifiedBy Organization Detail LastModifiedTime 07/19/2007/19/2023 CBC/C OMPLE TE BLD COUNT W/DIF F white blood cells 7.2 x10'3 /uL 4.2-10 .8 Not Available [facility] (Lab) [address] [place], [address], 07/19/2023 11:26:45 07/19/20 23 07/19/2023 CBC/C OMPLE TE BLD COUNT W/DIF F red blood cells 3.83 x10'6 /uL 3.80-5 .20 Not Available [facility] (Lab) [address] [place], [address], 07/19/2023 11:26:45 07/19/20 23 07/19/2023 CBC/C OMPLE TE BLD COUNT W/DIF F hemoglobin 12.0 g/dL 12.0-1 5.6 Not Available [facility] (Lab) [address] [place], [address], 07/19/2023 11:26:45 07/19/20 23 07/19/2023 CBC/C OMPLE TE BLD COUNT W/DIF F hematocrit 38.5 % 35.7-4 5.7 Not Available [facility] (Lab) [address] [place], [address], 07/19/2023 11:26:45 07/19/20 23 07/19/2023 CBC/C OMPLE TE BLD COUNT W/DIF F mean red cell volume 100.5 fL 82.0-9 9.0 high Not Available [facility] (Lab) [address] [place], [address], 07/19/2023 11:26:45 07/19/20 23 07/19/2023 CBC/C OMPLE TE BLD COUNT W/DIF F mean red cell hemoglobin 31.3 pg 27.0-3 3.0 Not Available [facility] (Lab) [address] [place], [address], 07/19/2023 11:26:45 07/19/20 23 07/19/2023 CBC/C OMPLE TE BLD COUNT W/DIF F mean RBC HGB concentratio n 31.2 g/dL 31.0-3 6.0 Not Available [facility] (Lab) [address] [place], [address], 07/19/2023 11:26:45 07/19/20 23 07/19/2023 CBC/C OMPLE TE BLD COUNT W/DIF F red cell distribution width 13.5 % 11.8-1 5.5 Not Available [facility] (Lab) [address] [place], [address], 07/19/2023 11:26:45 07/19/20 23 07/19/2023 CBC/C OMPLE TE BLD COUNT W/DIF F platelets 374 x10'3 /uL 150-40 0 Not Available [facility] (Lab) [address] [place], [address], 07/19/2023 11:26:45 07/19/20 23 07/19/2023 CBC/C OMPLE TE BLD COUNT W/DIF F mean platelet volume 9.5 fL 9.0-12 .4 Not Available [facility] (Lab) [address] [place], [address], 07/19/2023 11:26:45 07/19/20 23 07/19/2023 CBC/C OMPLE TE BLD COUNT W/DIF F neutrophils 59.6 % 39.0-7 2.0 Not Available [facility] (Lab) [address] [place], [address], 07/19/2023 11:26:45 07/19/20 23 07/19/2023 CBC/C OMPLE TE BLD COUNT W/DIF F lymphocytes 29.4 % 16.0-4 7.0 Not Available [facility] (Lab) [address] [place], [address], 07/19/2023 11:26:45 07/19/20 23 07/19/2023 CBC/C OMPLE TE BLD COUNT W/DIF F monocytes 7.5 % 5.0-12 .0 Not Available [facility] (Lab) [address] [place], [address], 07/19/2023 11:26:45 07/19/20 23 07/19/2023 CBC/C OMPLE TE BLD COUNT W/DIF F eosinophils 2.9 % 1.0-7. 0 Not Available [facility] (Lab) [address] [place], [address], 07/19/2023 11:26:45 07/19/20 23 07/19/2023 CBC/C OMPLE TE BLD COUNT W/DIF F basophils 0.3 % 0.0-2. 0 Not Available [facility] (Lab) [address] [place], [address], 07/19/2023 11:26:45 07/19/20 23 07/19/2023 CBC/C OMPLE TE BLD COUNT W/DIF F immature granulocytes 0.3 % 0.00-0 .50 Not Available [facility] (Lab) [address] [place], [address], 07/19/2023 11:26:45 07/19/20 23 07/19/2023 CBC/C OMPLE TE BLD COUNT W/DIF F neutrophils, absolute count 4.30 x10'3 /uL 1.5-8. 0 Not Available [facility] (Lab) [address] [place], [address], 07/19/2023 11:26:45 07/19/20 23 07/19/2023 CBC/C OMPLE TE BLD COUNT W/DIF F lymphocytes, absolute count 2.12 x10'3 /uL 1.07-3 .43 Not Available [facility] (Lab) [address] [place], [address], 07/19/2023 11:26:45 07/19/20 23 07/19/2023 CBC/C OMPLE TE BLD COUNT W/DIF F monocytes, absolute count 0.54 x10'3 /uL 0.29-0 .99 Not Available [facility] (Lab) [address] [place], [address], 07/19/2023 11:26:45 07/19/20 23 07/19/2023 CBC/C OMPLE TE BLD COUNT W/DIF F eosinophils, absolute count 0.21 x10'3 /uL 0.02-0 .53 Not Available [facility] (Lab) [address] [place], [address], 07/19/2023 11:26:45 07/19/20 23 07/19/2023 CBC/C OMPLE TE BLD COUNT W/DIF F basophils, absolute count 0.02 x10'3 /uL 0.01-0 .08 Not Available [facility] (Lab) [address] [place], [address], 07/19/2023 11:26:45 07/19/20 23 07/19/2023 CBC/C OMPLE TE BLD COUNT W/DIF F immature granulocytes ,absolute 0.02 x10'3 /uL 0.00-0 .05 Not Available [facility] (Lab) [address] [place], [address], 07/19/2023 11:26:45 07/19/20 23 07/19/2023 CBC/C OMPLE TE BLD COUNT W/DIF F nucleated red blood cells 0.0 % -0 Not Available [facility] (Lab) [address] [place], [address], 07/19/2023 11:26:45 07/19/20 23 07/19/2023 CBC/C OMPLE TE BLD COUNT W/DIF F NRBC# 0.00 x10'3 /uL Not Available [facility] (Lab) [address] [place], [address], 07/19/2023 11:26:45 07/19/20 23 07/19/2023 LIPID PANEL cholesterol 195 mg/dL 140-19 9 [facility] NSUS RECOM MENDA TION FOR SHELBI STERO L: ADULT CHILD LOW RISK: <200 <170 BORDE RLINE : <200- 239 ----- HIGH RISK: >240 >200 Not Available [facility] (Lab) [address] [place], [address], 07/19/2023 11:32:01 07/19/20 23 07/19/2023 LIPID PANEL triglyceride s 114 mg/dL 0-150 [facility] NSUS REPOR T RECOM MENDA TION FOR TRIGL YCERI HAJA: ADULT CHILD LOW RISK: <150 ----- BODER LINE: 150-1 99 ----- HIGH RISK: >200 ----- Not Available [facility] (Lab) [address] [place], [address], 07/19/2023 11:32:01 07/19/20 23 07/19/2023 LIPID PANEL HDL cholesterol 73 mg/dL 40- Not Available [facility] (Lab) [address] [place], [address], 07/19/2023 11:32:01 07/19/20 23 07/19/2023 LIPID PANEL LDL cholesterol, calculated 99 mg/dL 0-130 [facility] NSUS REPOR T RECOM MENDA TIONS FOR LDL: ADULT CHILD LOW RISK <130 <110 (OPTI MAL LDL) <100 ----- BORDE RLINE : 130-1 59 ----- HIGH RISK: >160 >130 A TRIGL YCERI DE RESUL T >400 INVAL IDATE S THE CALCU LATIO N FOR LDL FRACT IONAT ION - THE LDL RESUL T WILL NOT BE REPOR DALIA. Not Available [facility] (Lab) [address] [place], [address], 07/19/2023 11:32:01 07/19/20 23 07/19/2023 COMPR EHENS ALTON METAB OLIC PANEL sodium 139 mmol/ L 137-14 5 Not Available [facility] (Lab) [address] [place], [address], 07/19/2023 11:32:08 07/19/20 23 07/19/2023 COMPR EHENS ALTON METAB OLIC PANEL potassium 4.0 mmol/ L 3.5-5. 1 Not Available [facility] (Lab) [address] [place], [address], 07/19/2023 11:32:08 07/19/20 23 07/19/2023 COMPR EHENS ALTON METAB OLIC PANEL chloride 102 mmol/ L 98-107 Not Available [facility] (Lab) [address] [place], [address], 07/19/2023 11:32:08 07/19/20 23 07/19/2023 COMPR EHENS ALTON METAB OLIC PANEL carbon dioxide 29 mmol/ L 22-30 Not Available [facility] (Lab) [address] [place], [address], 07/19/2023 11:32:08 07/19/20 23 07/19/2023 COMPR EHENS ALTON METAB OLIC PANEL anion gap 12.0 mmol/ L 14-22 low Not Available [facility] (Lab) [address] [place], [address], 07/19/2023 11:32:08 07/19/20 23 07/19/2023 COMPR EHENS ALTON METAB OLIC PANEL glucose 81 mg/dL 70-99 Not Available [facility] (Lab) [address] [place], [address], 07/19/2023 11:32:08 07/19/20 23 07/19/2023 COMPR EHENS ALTON METAB OLIC PANEL BUN 18 mg/dL 8-19 Not Available [facility] (Lab) [address] [place], [address], 07/19/2023 11:32:08 07/19/20 23 07/19/2023 COMPR EHENS ALTON METAB OLIC PANEL creatinine 1.19 mg/dL 0.66-1 .25 Not Available [facility] (Lab) [address] [place], [address], 07/19/2023 11:32:08 07/19/20 23 07/19/2023 COMPR EHENS ALTON METAB OLIC PANEL GFR 44 Refer ence Range : Raymond ge GFR Healt hy Adult : >60 mL/mi n/1.7 3 m2 Chron ic Kidne y Disea se: 15-60 mL/mi n/1.7 3 m2 Kidne y Failu re: <15/m L/min /1.73 m2 www.n iddk. nih.g ov The MDRD study equat ion has not been valid ated in child sloane <18 years of age; pregn ant women ; the elder ly >85 years of age; or in some racia l or ethni c subgr oups, such as Hisma nics. Outsi de the valid ated ayse eters , estim ated GFR is less accur ate, requi ring clini cassidy judgm ent on a case- by-ca se basis . Clini cassidy inter preta tion for other races and ages must be made by the clini vasquez. The MDRD study equat ion has not been valid ated for the evalu ation of serum creat inine relat ed to nutri jose a l statu s or medic ation usage . For perso ns <18 years of age, a pedia tric GFR calcu lator is avail able on the F websi te: https ://ww w.kid sydnee.o rg/pr ofess ional s/kdo qi/gf r_cal culat or Not Available [facility] (Lab) [address] [place], [address], 07/19/2023 11:32:08 07/19/20 23 07/19/2023 COMPR EHENS ALTON METAB OLIC PANEL alkaline phosphatase 100 U/L 38-126 Not Available [facility] (Lab) [address] [place], [address], 07/19/2023 11:32:08 07/19/20 23 07/19/2023 COMPR EHENS ALTON METAB OLIC PANEL alanine aminotransfe rase 21 U/L 0-35 Not Available [facility] (Lab) [address] [place], [address], 07/19/2023 11:32:08 07/19/20 23 07/19/2023 COMPR EHENS ALTON METAB OLIC PANEL aspartate aminotransfe rase 29 U/L 15-37 Not Available [facility] (Lab) [address] [place], [address], 07/19/2023 11:32:08 07/19/20 23 07/19/2023 COMPR EHENS ALTON METAB OLIC PANEL bilirubin, total 0.60 mg/dL 0.20-1 .30 Not Available [facility] (Lab) [address] [place], [address], 07/19/2023 11:32:08 07/19/20 23 07/19/2023 COMPR EHENS ALTON METAB OLIC PANEL calcium 9.3 mg/dL 8.4-10 .2 Not Available [facility] (Lab) [address] [place], [address], 07/19/2023 11:32:08 07/19/20 23 07/19/2023 COMPR EHENS ALTON METAB OLIC PANEL total protein 6.9 g/dL 6.3-8. 2 Not Available [facility] (Lab) [address] [place], [address], 07/19/2023 11:32:08 07/19/20 23 07/19/2023 COMPR EHENS ALTON METAB OLIC PANEL albumin 4.1 g/dL 3.0-4. 4 Not Available [facility] (Lab) [address] [place], [address], 07/19/2023 11:32:08 07/19/20 23 07/19/2023 COMPR EHENS ALTON METAB OLIC PANEL globulin 2.8 g/dL 2.6-4. 2 Not Available [facility] (Lab) [address] [place], [address], 07/19/2023 11:32:08 07/19/20 23 07/19/2023 COMPR EHENS ALTON METAB OLIC PANEL A/G ratio 1.5 ratio 1.0-2. 0 Not Available [facility] (Lab) [address] [facility] [place], [address], 07/19/2023 11:32:08 03/08/20 24 01/19/2017 home sleep study No observ ation record ed. [email or web address] Not Available 2023 10:32:30 03/08/20 24 02/01/2017 polys omnog santiago, titra tion study No observ ation record ed. [email or web address] Not Available 2023 14:19:33 Result Notes None recorded. Problems Name Problem SNOMED Code Status Onset Date Resolution Date Notes Provider Name and Address Organization Details Recorded Time Body mass index 30+ - obesity 182341119 Active 2017 Not Available [facility] 3 06:54:45 Left Achilles tendinitis 3932662457707 02 Active 2019 Not Available [facility] 3 06:54:45 Dyslipidem ia 521779959 Active 2016 Not Available [facility] 3 06:54:45 Vertigo 190066919 Active 2021 Not Available [facility] 3 06:54:45 Hypothyroi dism 54477878 Active 2016 Not Available [facility] 3 06:54:45 Essential hypertensi on 09196925 Active 2016 Not Available [facility] 3 06:54:45 Obstructiv e sleep apnea syndrome 02346854 Active 2016 Not Available [facility] 3 06:54:45 COVID-19 572080999 Active 2021 Not Available [facility] 3 06:54:45 Gout 36446349 Active 2021 Not Available [facility] 3 06:54:45 Notes:Medical History: Julissa rubi COVID infection 07/2021 Obesity with ZAIRA, on CPAP c/o IVRC RVSP 50 mmHg Mod TR Mild LAVERN Hypertension EF 63% Hyperlipidemia Hypothyroidism COURTNEY Hip osteopenia Gout Left Achilles tendonitis Procedure History: T&A 194 Cholecystectomy 1966 Gastric bypass 1999 Colonoscopy 2020 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 Procedures Surgical History Date Name Laterality Status Provider Name and Address Organization Details Recorded Time 11/20/19 20 Gastric bypass for obesity completed Not Available [facility] 01/18/2023 00:52:48 11/20/18 85 ligation of fallopian tube completed Not Available [facility] 01/18/2023 00:52:48 11/20/18 66 Cholecystectomy completed Not Available [facility] 01/18/2023 00:52:48 excision of uvula completed Not Available [facility] 01/18/2023 00:52:48 intravenous blood transfusion completed Not Available [facility] 01/18/2023 00:52:48 Imaging Results Imaging Date Name Status LastModified by Organiz ation Details LastModified Time 01/19/2017 home sleep study completed Information not available 03/11/2024 10:32:30 02/01/2017 polysomnogram, titration study completed [email or web address] Information not available 03/08/2024 14:19:33 Procedure Notes None recorded. Medical Equipment None Reported. Allergies Allergen ID Allergen Name Allergen Category Reaction Reaction Severity Criticality Documentation Date Start Date Code Code System Note Provider Name and Address Organization Details Recorded Time 2130 Substance with sulfonami de structure and antibacte rial mechanism of action (substanc e) medicatio n Not available Not available Not available 01/18/2023 70973 8003 SNOMED when she was a baby Not Available [facility] 3 01:22:36 213 Product containin g penicilli n (product) medicatio n rash Not available Not available 01/18/2023 82190 8001 SNOMED Not Available [facility] 3 01:22:37 Medications Name Sig Start Date Stop Date Status Note LastModified by Organization Details LastModified Time losartan 50 mg tablet TAKE 1 TABLET BY MOUTH DAILY 06/14 completed changed to Amlodipi ne Not Available Not Available Not Available fluconazo le 100 mg tablet 04/26 completed Not Available Not Available Not Available doxycycli ne hyclate 100 mg capsule Take 1 capsule twice a day by oral route for 10 days. 04/21 completed Not Available Not Available Not Available clindamyc in HCl 300 mg capsule TAKE 1 CAPSULE BY MOUTH EVERY 8 HOURS FOR 10 DAYS 01/25 completed Not Available Not Available Not Available atorvasta tin 10 mg tablet take 1 tablet by mouth daily active Not Available Not Available No t Available azithromy juaquin 250 mg tablet 04/26 completed Not Available Not Available Not Available meloxicam 15 mg tablet 04/26 completed Not Available Not Available Not Available sucralfat e 1 gram tablet 07/26 completed Not Available Not Available Not Available lisinopri l 20 mg tablet TAKE 1 TABLET BY MOUTH DAILY 08/17 completed Not Available Not Available Not Available ondansetr on HCl 4 mg tablet TAKE 1 TABLET BY MOUTH EVERY 8 HOURS NEEDED FOR NAUSEA AND VOMITING 03/08 completed Not Available Not Available Not Available pantopraz ole 40 mg intraveno us solution take 1 tablet by mouth in the morning 11/08 completed Not Available Not Available Not Available clindamyc in HCl 150 mg capsule TAKE 1 CAPSULE BY MOUTH FOUR TIMES DAILY 07/01 completed Not Available Not Available Not Available acetamino phen 300 mg-codein e 30 mg tablet TAKE 1 TABLET BY MOUTH EVERY 4 HOURS NEEDED FOR PAIN 07/01 completed Not Available Not Available Not Available amlodipin e 5 mg tablet Take 1 tablet every day by oral route. active Not Available Not Available No t Available allopurin ol 100 mg tablet take 1 tablet by mouth daily active Not Available Not Available No t Available tramadol 50 mg tablet TAKE 1 TABLET BY MOUTH TWICE A DAY NEEDED (SPACE AT LEAST 4 HOURS APART FROM ER TRAMADOL ) 03/08 completed Not Available Not Available Not Available triamtere ne 37.5 mg-hydroc hlorothia zide 25 mg capsule TAKE 1 CAPSULE BY MOUTH EVERY DAY active Not Available Not Available No t Available levothyro xine 75 mcg tablet take 1 tablet by mouth daily active Not Available Not Available No t Available levothyro xine 100 mcg tablet TAKE 1 TABLET BY MOUTH EVERY DAY 08/06 completed Not Available Not Available Not Available meclizine 25 mg tablet TAKE 1 TABLET BY MOUTH EVERY 8 HOURS NEEDED active Not Available Not Available No t Available cephalexi n 500 mg capsule TK ONE C PO QID active Not Available Not Available No t Available pantopraz ole 40 mg tablet,de layed release TAKE 1 TABLET BY MOUTH IN THE MORNING active Not Available Not Available No t Available levothyro xine 125 mcg tablet 04/26 completed Not Available Not Available Not Available nitroglyc fuad 0.4 mg sublingua l tablet 08/17 completed Not Available Not Available Not Available raloxifen e 60 mg tablet 11/10 completed Not Available Not Available Not Available bisacodyl 5 mg tablet,de layed release 12/31 completed Not Available Not Available Not Available methylpre dnisolone 4 mg tablets in a dose pack TAKE 6 TABLETS ON DAY 1 DIRECTED ON PACKAGE AND DECREASE BY 1 TAB EACH DAY FOR A TOTAL OF 6 DAYS 04/21 completed Not Available Not Available Not Available ondansetr on 4 mg disintegr ating tablet Take 1 tablet every 8 hours by oral route as needed. 11/04 completed Not Available Not Available Not Available diazepam 5 mg tablet TK 1/2 T PO BID 01/25 completed Not Available Not Available Not Available levothyro xine 112 mcg tablet TAKE 1 TABLET BY MOUTH EVERY DAY 01/25 completed Not Available Not Available Not Available Vitamin D3 25 mcg (1,000 unit) capsule Take 3 capsules every day by oral route. 07/29 completed Not Available Not Available Not Available metoprolo l tartrate 25 mg tablet 07/26 completed Not Available Not Available Not Available fluocinon melina 0.1 % topical cream 08/17 completed Not Available Not Available Not Available tizanidin e 2 mg capsule 04/26 completed Not Available Not Available Not Available multivita min qd 07/29 completed Not Available Not Available Not Available betahisti ne (bulk) pt is taking qid 03/08 completed Not Available Not Available Not Available Calcium 600 + D(3) qd 07/29 completed Not Available Not Available Not Available calcipotr iene-beta methasone 0.005 %-0.064 % topical ointment active Not Available Not Available Not Available tramadol ER 200 mg tablet,ex tended release 24 hr TAKE 1 TABLET BY MOUTH EVERY DAY FOR 30 DAYS active Not Available Not Available No t Available ondansetr on HCl (PF) 4 mg/2 mL injection solution injected 4 mg IM L buttock 06/[address] [facility]# [id number] 78-01 Not Available Not Available Not Available peg 3350-elec trolytes 236 gram-22.7 4 gram-6.74 gram-5.86 gram solution DRINK 1/2 PREP AT 5 PM ON 08/24 AND DRINK SECOND 1/2 OF PREP AT 5 AM ON 08/25 completed Not Available Not Available Not Available Voltaren 1 % topical gel APPLY 2 GRAMS TO THE back of the left heel 3 times PER DAY 01/25 completed Not Available Not Available Not Available B12 qd 07/29 completed Not Available Not Available Not Available Narcan 4 mg/actuat ion nasal spray UTD NEEDED NASALLY 1 DAY active Not Available Not Available No t Available Fluzone High-Dose 8308-0960 (PF) 180 mcg/0.5 mL intramusc ular syringe active Not Available Not Available Not Available Fluzone High-Dose 1379-4091 (PF) 180 mcg/0.5 mL intramusc ular syringe active Not Available Not Available Not Available Shingrix (PF) 50 mcg/0.5 mL intramusc ular suspensio n, kit 01/25 completed Not Available Not Available Not Available Fluzone High-Dose (PF) 180 mcg/0.5 mL intramusc ular syringe ADM 0.5ML IM UTD active Not Available Not Available No t Available Fluad 65yr up(PF)45 mcg(15 mcgx3)/0. 5 mL intramusc ular syringe ADM 0.5ML IM UTD active Not Available Not Available No t Available ID NOW COVID-19 Test Kit TEST DIRECTED TODAY 01/25 completed Not Available Not Available Not Available Fluad Quad (65yr up)(PF) 60 mcg (15 mcg x 4)/0.5mL IM syringe PHARMACY ADMINIST VICKIE 01/25 completed Not Available Not Available Not Available Flowflex COVID-19 Antigen Home Test kit USE DIRECTED 09/05 completed Not Available Not Available Not Available Paxlovid 300 mg (150 mg x 2)-100 mg tablets in a dose pack TK 2 NIRMATRE LVIR TS AND 1 RITONAVI R T TOGETHER PO BID FOR 5 DAYS BID FOR 5 DAYS DIRECTED 04/21 completed Not Available Not Available Not Available Vitals Date Recorded Body height Body weight Body temperature Heart rate Oxygen saturation Oxygen saturation in Arterial blood by Pulse oximetry Systolic blood pressure Diastolic blood pressure Provider Name and Address Organization Details Last Updated DateTime 3 165.1 cm 34265.1 4 g 98.1 [degF] 71 /min 98 % 98 % 136 mm[Hg] 78 mm[Hg] Janet Fong RN [facility] 3 14:23:20 Date Recorded Body height Body mass index (BMI) Body weight Body temperature Heart rate Systolic blood pressure Diastolic blood pressure Provider Name and Address Organization Details Last Updated DateTime 3 165.1 cm 33.1 kg/m2 42306.8 8 g 97.9 [degF] 79 /min 126 mm[Hg] 70 mm[Hg] ENRIQUE Hanna [facility] [employer] [facility] 3 09:56:05 Date Recorded Body height Body mass index (BMI) Body weight Body temperature Heart rate Oxygen saturation Oxygen saturation in Arterial blood by Pulse oximetry Systolic blood pressure Diastolic blood pressure Provider Name and Address Organization Details Last Updated DateTime 3 165.1 cm 33.3 kg/m2 75175.4 7 g 96.3 [degF] 66 /min 95 % 95 % 142 mm[Hg] 52 mm[Hg] Niki Chopra [facility] [employer] [facility] 3 14:38:21 Date Recorded Body height Body mass index (BMI) Body weight Body temperature Heart rate Systolic blood pressure Diastolic blood pressure Provider Name and Address Organization Details Last Updated DateTime 3 165.1 cm 32.8 kg/m2 55980.7 g 97.6 [degF] 76 /min 134 mm[Hg] 64 mm[Hg] HelgaENRIQUE Rossi [employer] 3 10:36:50 Date Recorded Body height Body mass index (BMI) Body weight Heart rate Oxygen saturation Oxygen saturation in Arterial blood by Pulse oximetry Systolic blood pressure Diastolic blood pressure Provider Name and Address Organization Details Last Updated DateTime 4 165.1 cm 32.8 kg/m2 99629.7 g 78 /min 95 % 95 % 122 mm[Hg] 70 mm[Hg] Deb Sams CMA [employer] 4 09:55:39 Date Recorded Body temperature Heart rate Respiratory rate Provider Name and Address Organization Details Last Updated DateTime 03/11/2024 97.2 [degF] 78 /min 15 /min Eder Adamson MD [address] [facility], [facility] [address], [place], [address], [employer] 03/11/2024 10:40:29 Social History Question Answer Notes LastModified by Organization Details LastModified Time Tobacco Smoking Status Former Smoker quit 1990 Not Available [facility] 01/18/2023 00:47:34 Do You Have An Advance Directive? Yes Copy In Chart MIGRATION.0301 [id number] Information not available 01/18/2023 What Is Your Level Of Alcohol Consumption? Occasional Wine MIGRATION.030 247421 Information not available 01/18/2023 Are You Blind Or Do You Have Difficulty Seeing? No MIGRATION.030 464052 Information not available 01/18/2023 What Is Your Level Of Caffeine Consumption? Moderate MIGRATION.030 519424 Information not available 01/18/2023 How Much Tobacco Do You Chew? None MIGRATION.030 047763 Information not available 01/18/2023 In The 14 Days Before Symptom Onset, Have You Had Close Contact With A Laboratory-conf irmed COVID-19 While That Case Was Ill? No MIGRATION.030 [id number] Information not available 01/18/2023 In The 14 Days Before Symptom Onset, Have You Had Close Contact With A Person Who Is Under Investigation For COVID-19 While That Person Was Ill? No MIGRATION.030 378812 Information not available 01/18/2023 Are You Deaf Or Do You Have Serious Difficulty Hearing? 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 REGULAR MIGRATION.0301 996574 Information not available 01/18/2023 Which Illicit Or Recreational Drugs Have You Used? None MIGRATION.030 994040 Information not available 01/18/2023 Do You Or Have You Ever Used E-cigarettes Or Vape? Never Used Electronic Cigarettes MIGRATION.030 712613 Information not available 01/18/2023 What Is The Highest Grade Or Level Of School You Have Completed Or The Highest Degree You Have Received? 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 No MIGRATION.0301 132350 Information not available 01/18/2023 What Is The Fluoride Status Of Your Home? Unknown MIGRATION.030 830288 Information not available 01/18/2023 When Did You Quit Smoking? 15+yearssincelastc igarette MIGRATION.0301 443472 Information not available 01/18/2023 Are There Any Guns Present In Your Home? No MIGRATION.0301 535030 Information not available 01/18/2023 Do You Use Insect Repellent Routinely? Yes MIGRATION.0301 881109 Information not available 01/18/2023 Where Do You Live? SingleLevelHouse With Basement MIGRATION.0301 890009 Information not available 01/18/2023 Do You Have A Medical Power Of Concrete Pump Operator? Yes MIGRATION.0301 093795 Information not available 01/18/2023 What Was The Date Of Your Most Recent Tobacco Screening? 11/08/2023 [email or web address] Information not available 11/08/2023 Have You Ever Been Counseled For Unhealthy Alcohol Use? No MIGRATION.0301 340755 Information not available 01/18/2023 Do You Have Any Pets? No MIGRATION.0301 391652 Information not available 01/18/2023 What Is Your Relationship Status? MIGRATION.0301 [id number] Information not available 01/18/2023 Do You Use Your Seat Belt Or Car Seat Routinely? Yes MIGRATION.0301 004963 Information not available 01/18/2023 Do You Have Smoke And Carbon Monoxide Detectors In Your Home? Yes MIGRATION.0301 893501 Information not available 01/18/2023 At What Age Did You Start Smoking Tobacco? 18 MIGRATION.0301 059287 Information not available 01/18/2023 Are You Passively Exposed To Smoke? No MIGRATION.0301 614716 Information not available 01/18/2023 Do You Or Have You Ever Used Smokeless Tobacco? Never Used Smokeless Tobacco MIGRATION.0301 681007 Information not available 01/18/2023 Are There Any Smokers In Your House? No MIGRATION.0301 395621 Information not available 01/18/2023 How Much Tobacco Do You Smoke? No Formerly 1 Ppd MIGRATION.0301 529764 Information not available 01/18/2023 What Types Of Sporting Activities Do You Participate In? None MIGRATION.0301 218477 Information not available 01/18/2023 Do You Feel Stressed (tense, Restless, Nervous, Or Anxious, Or Unable To Sleep At Night)? [id number] MIGRATION.0301 694044 Information not available 01/18/2023 Do You Use Any Illicit Or Recreational Drugs? No MIGRATION.0301 410511 Information not available 01/18/2023 Do You Use Sunscreen Routinely? Yes MIGRATION.0301 828714 Information not available 01/18/2023 Has Tobacco Cessation Counseling Been Provided? No MIGRATION.0301 152984 Information not available 01/18/2023 Have You Recently Traveled Abroad? No MIGRATION.0301 932316 Information not available 01/18/2023 Do You Have Any Dietary Restrictions? No MIGRATION.0301 676810 Information not available 01/18/2023 Do You Or Have You Ever Used Any Other Forms Of Tobacco Or Nicotine? No MIGRATION.0301 824555 Information not available 01/18/2023 Sex: Female Functional Status Question Answer Note LastModified by Organizat ion Details LastModified Time Do you have difficulty walking or climbing stairs? No MIGRATION.[id number] 026 Information not available 01/18/2023 Do you have transportation difficulties? No MIGRATION.4838198 026 Information not available 01/18/2023 Are you able to walk? YESWOREST MIGRATION.9754064 026 Information not available 01/18/2023 Do you have difficulty doing errands alone? No MIGRATION.5409348 026 Information not available 01/18/2023 Are you able to care for yourself? Yes MIGRATION.3632687 026 Information not available 01/18/2023 Do you have difficulty dressing or bathing? No MIGRATION.9440211 026 Information not available 01/18/2023 What is your exercise level? Occasional MIGRATION.3349733 026 Information not available 01/18/2023 Mental Status Question Answer Note LastModified by Organizat ion Details LastModified Time Do you have difficulty concentrating, remembering or making decisions? No MIGRATION.[id number] Information not available 01/18/2023 Family History Relationship Description Onset Age of this Age Resolved Age Notes LastModified by Organization Details LastModified Time Mother Myocardial infarction MIGRATION.371 [id number] Not available 01/18/2023 00:52:52 Mother Heart disease MIGRATION.541 [id number] Not available 01/18/2023 00:52:52 Mother Malignant tumor of breast Not available 02/19 09:47:52 Mother Malignant tumor of colon [email or web address] Not available 02/19 09:47:52 Father Myocardial infarction MIGRATION.192 [id number] Not available 01/18/2023 00:52:52 Father Heart disease MIGRATION.804 [id number] Not available 01/18/2023 00:52:52 Father Gout [email or web address] Not availabl e 03/11/2024 09:47:52 Son Hypertensive disorder MIGRATION.981 [id number] Not available 01/18/2023 00:52:52 Son Gout [email or web address] Not availabl e 03/11/2024 09:47:53 Medical History Condition Response NERVE DISEASE N BLINDNESS N RHEUMATIC FEVER N KIDNEY STONES N BLADDER PROBLEMS N MRSA N OTHER # 1 N POLIO N LUNG DISEASE/DISORDER N RADIATION / CHEMOTHERAPY N COPD N Other # 2 N BLOOD DISEASES N SURGERY N EAR OR HEARING PROBLEMS N MUMPS N BOWEL PROBLEMS N DEPRESSION (INCLUDING POST ) N STROKE/TIA N ULCERS N BENIGN PROSTATIC HYPERPLASIA N MEASLES N MYOCARDIAL INFARCTION N OBESITY N GERD/NAUSEA N ANEURYSM N URINARY/BLADDER/KIDNEY PROBLEMS N CORONARY ARTERY DISEASE (CAD) N ADDICTION CONCERNS N ENDOMETRIOSIS N Impotence N USE OF BLOOD THINNERS N SKIN PROBLEMS N GASTROINTESTINAL DISORDER N PERIPHERAL VASCULAR DISEASE N MUSCLE,JOINT OR BONE PROBLEMS N GASTROINTESTINAL BLEEDING N BLOOD CLOTS N ASTHMA N CATARACTS N ERECTILE DYSFUNCTION N VARICOSITIES N GI PROBLEMS N Low Testosterone N INFERTILITY N AIDS/HIV N CHEMOTHERAPY / RADIATION N LIVER DISEASE N MALE HYPOGONADISM N HYPERTENSION Y Deficiency N ANXIETY DISORDER N BLOOD TRANSFUSION N ANEMIA/BLOOD DISORDER N CHRONIC EAR INFECTIONS N BRONCHITIS N TUBERCULOSIS N GLAUCOMA N FOOT PROBLEM N DIVERTICULITIS N SLEEP APNEA Y CHICKENPOX N INFECTIOUS DISEASE N HEART ARRHYTHMIA N PROSTATE N INSOMNIA N HIGH CHOLESTEROL / HYPERLIPIDEMIA Y HYPERTHYROIDISM N EYE PROBLEMS N NEUROLOGICAL PROBLEMS N EDEMA N CHRONIC PAIN SYNDROME N HYPOTHYROIDISM Y CAROTID BLOCKAGE N CONSTIPATION N BACK / NECK PROBLEMS Y HAVE YOU BEEN HOSPITALIZED OR SEEN IN [facility] IN THE PAST YEAR ? N ATHEROSCLEROSIS N BREAST PROBLEMS N DIALYSIS N ECZEMA N OSTEOPOROSIS N ARTHRITIS N APPENDICITIS N DIABETES, TYPE N BAD TEETH N ENT N HEARTBURN / REFLUX N AUTISM SPECTRUM DISORDER (ASD) N HEPATITIS / LIVER DISEASE N GOUT Y SLEEP DISORDER N ALZHEIMER'S DISEASE N Brain Problems N HERPES N DEMENTIA N HEADACHES/MIGRAINES N SEIZURES/EPILEPSY N VASCULAR DISEASE N PACEMAKER N Blood Disorder N DIZZINESS N HEART DISEASE/HEART PROBLEMS N KIDNEY DISEASE N MULTIPLE SCLEROSIS N CARDIAC ARRHYTHMIA N CANCER: SPECIFY N ATRIAL FIBRILLATION N Gall Stones N PULMONARY EMBOLISM N AUTOIMMUNE DISEASE N Gynecological History Statement/Question Response Date of Last Pap Date of Last Mammogram 01/29/2021 Date of Last Colonoscopy Most Recent Bone Density Obstetrics History GPAL:G 1 P 1 0 0 0 Type Value Full Term 1 Total 1 Immunizations Vaccine Type Date Status Note Provider Nam e and Address Organization Details Recorded Time influenza, unspecified formulation 2 completed Not Available [facility] 07/20/2023 06:54:46 COVID-19, mRNA, LNP-S, PF, 100 mcg/0.5mL dose or 50 mcg/0.25mL dose 1 completed Not Available [facility] 07/20/2023 06:54:46 Influenza, high-dose, quadrivalent, PF 0 completed Not Available [facility] 07/20/2023 06:54:46 Influenza, high-dose, trivalent, PF 9 completed Not Available [facility] 07/20/2023 06:54:46 zoster recombinant 8 completed Not Available [facility] 07/20/2023 06:54:46 zoster recombinant 8 completed Not Available [facility] 07/20/2023 06:54:46 Influenza, high-dose, trivalent, PF 8 completed Not Available [facility] 07/20/2023 06:54:46 Influenza, high-dose, trivalent, PF 7 completed Not Available [facility] 07/20/2023 06:54:46 Influenza, split virus, quadrivalent, preservative 7 completed Not Available [facility] 07/20/2023 06:54:46 influenza, unspecified formulation 6 completed Not Available [facility] 07/20/2023 06:54:46 COVID-19, mRNA, LNP-S, PF, 100 mcg/0.5mL dose or 50 mcg/0.25mL dose 1 completed Not Available [facility] 07/20/2023 06:54:46 COVID-19, mRNA, LNP-S, PF, 100 mcg/0.5mL dose or 50 mcg/0.25mL dose 1 completed Not Available [facility] 07/20/2023 06:54:46 Past Encounters Encounter ID Performer Location Encounter Start Date Encounter Closed Date Diagnosis/Indication Diagnosis SNOMED-CT Code Diagnosis ICD10 Code Diagnosis Note [id number] [facility] [address] [place] [address] 01/25/2021 00:00:00 01/25/2021 11:51:15 [id number] [facility] [address] [address] 02/24/2021 00:00:00 02/24/2021 23:46:06 [id number] [facility] [address] [address] 07/09/2021 00:00:00 07/10/2021 17:01:51 [id number] [facility] [address] [address] 12/31/2021 00:00:00 01/09/2022 20:40:38 [id number] [facility] [place] [address] [place] [address] 01/25/2022 00:00:00 01/25/2022 12:00:09 [id number] [facility] Internal Med [facility] [address] [address] 03/30/2022 00:00:00 03/30/2022 21:57:26 [id number] [facility] Internal Med [facility] [address] [address] 07/01/2022 00:00:00 07/10/2022 12:41:41 [id number] [facility] [place] [address] [place] [address] 09/05/2022 00:00:00 09/05/2022 15:28:11 [id number] [facility] Internal Med [facility] [address] [address] 11/04/2022 00:00:00 11/04/2022 22:05:43 [id number] [facility] Internal [facility] [place] [address] [facility] y , [facility] [place] [address] 11/29/2022 00:00:00 12/04/2022 12:38:08 [id number] [facility] [place] [address] [place] [address] 12/05/2022 00:00:00 12/18/2022 17:22:25 [id number] Eva Stapleton, LENS HARDENER- [facility] [place] [address] [place] [address] 02/06/2023 09:54:15 02/06/2023 14:27:48 Obstructive sleep apnea syndrome 06044650 G47.33 Study 02/01/17 with optimal pressure 8 cm H2O.Origin al set up 03/17/17Ne w machine per recall was set up one month ago ow nload today with 96.7% use greater than 4 hours.Brittany ins on 8cm H2OAHI is 8.2ESS 4She has good compliance but her AHI is no longer controlled Encouraged 100% compliance with all sleepFollo w with PCM for labsAdvise d good sleep habits and patterns:- Set a goal for at least 7 to 8 hours of sleep time per day.-Use the bed mainly for sleep and to go to bed only when tired.If unable to fall asleep after 30 minutes, patient should get out of bed but should not engage in any activity that requires sustained mental alertness. -Maintain a regular bedtime and wake-up time even on weekends-A void excessive naps during the daytime. If a nap is necessary, limit it to no more than 30 minutes. -Minimize environmen corazon noise, bright lights, and extremes in bedroom temperatur e.-Avoid alcohol, caffeinate d beverages, and nicotine products for at least 6 hours prior to bedtime. -Avoid strenuous exercise and large meals for at least 4 hours prior to bedtime.Di scussed supply cleaning and reordering .She is aware of reportable signs and symptoms.D iscussed weight management .Will increase pressure by 1cm and increase ramp time to 45 minutesRTC in six months, PRN for concerns. [id number] Eva Stapleton, LENS HARDENER-[facility] [place] [address] [place] [address] 04/21/2023 11:29:09 04/21/2023 11:48:40 Obstructive sleep apnea syndrome 99730947 G47.33 Study 02/01/17 with optimal pressure 8 cm H2O.Origin al set up 03/17/17Ne w machine per recall was set up ow nload today with 76.7% use greater than 4 hours.On 9cm H2OAHI is 2.8ESS 4She has good compliance and benefitEnc ouraged 100% compliance with all sleepFollo w with PCM for labsAdvise d good sleep habits and patterns:- Set a goal for at least 7 to 8 hours of sleep time per day.-Use the bed mainly for sleep and to go to bed only when tired.If unable to fall asleep after 30 minutes, patient should get out of bed but should not engage in any activity that requires sustained mental alertness. -Maintain a regular bedtime and wake-up time even on weekends-A void excessive naps during the daytime. If a nap is necessary, limit it to no more than 30 minutes.-M inimize environmen corazon noise, bright lights, and extremes in bedroom temperatur e.-Avoid alcohol, caffeinate d beverages, and nicotine products for at least 6 hours prior to bedtime.-A void strenuous exercise and large meals for at least 4 hours prior to bedtime.Di scussed supply cleaning and reordering .She is aware of reportable signs and symptoms.D iscussed weight management .RTC in one year, PRN for concerns. [id number] Azul Valente MD [facility] Internal Med [facility] [address] [facility], [address] [address] 05/12/2023 10:56:33 05/12/2023 11:35:21 Hyperkalemia 45903983 E87.5 Dyslipidemia 602042509 E 78.5 Hypothyroidism 55843702 E03.9 Essential hypertension 32345729 I10 Gout 86695553 M10.9 [id number] Azul Valente MD [facility] Internal [facility] [address] [address] 06/14/2023 09:48:40 06/14/2023 10:26:43 Essential hypertension 73615304 I10 [id number] Eva Stapleton, [facility] [place] [address] [place] [address] 07/12/2023 14:17:30 07/12/2023 14:53:45 Obstructive sleep apnea syndrome 91669245 G47.33 Study 02/01/17 with optimal pressure 8 cm H2O.Origin al set up 03/17/17Ne w machine per recall was set up 07/2022Las t download with 76.7% use greater than 4 hours.Brittany ins on 9cm H2OAHI was 2.8She had good compliance and benefitOrd er for new machine todayFollo w with PCM for labsAdvise d good sleep habits and patterns:- Set a goal for at least 7 to 8 hours of sleep time per day.-Use the bed mainly for sleep and to go to bed only when tired.If unable to fall asleep after 30 minutes, patient should get out of bed but should not engage in any activity that requires sustained mental alertness. -Maintain a regular bedtime and wake-up time even on weekends-A void excessive naps during the daytime. If a nap is necessary, limit it to no more than 30 minutes.-M inimize environmen corazon noise, bright lights, and extremes in bedroom temperatur e.-Avoid alcohol, caffeinate d beverages, and nicotine products for at least 6 hours prior to bedtime.-A void strenuous exercise and large meals for at least 4 hours prior to bedtime.Di scussed supply cleaning and reordering .She is aware of reportable signs and symptoms.D iscussed weight management .RTC for compliance OV as required by insurance, PRN for concerns. [id number] Azul Valente MD [facility] Internal Med [facility] 15 [address] [facility], [place] [address] [place] [address] 07/19/2023 09:43:18 07/19/2023 10:18:02 Dyslipidemia 897749769 E78.5 Essential hypertension 03551203 I10 Screening - NAD 81683815 3 Z13.9 Hyperkalemia 32282183 E8 7.5 [id number] Eva Stapleton, LENS HARDENER-[facility] [place] [address] [place] [address] 09/11/2023 14:18:08 09/11/2023 15:27:13 Obstructive sleep apnea syndrome 45436918 G47.33 Study 02/01/17 with optimal pressure 8 cm H2O.Origin al set up 03/17/17Ne w machine 07/25/23Do wnload with 73% use greater than 4 hours.Brittany ins on 9cm H2OAHI is 3.3ESS 4She has good compliance and benefitFol low with PCM for labsAdvise d good sleep habits and patterns:- Set a goal for at least 7 to 8 hours of sleep time per day.-Use the bed mainly for sleep and to go to bed only when tired.If unable to fall asleep after 30 minutes, patient should get out of bed but should not engage in any activity that requires sustained mental alertness. -Maintain a regular bedtime and wake-up time even on weekends-A void excessive naps during the daytime. If a nap is necessary, limit it to no more than 30 minutes.-M inimize environmen corazon noise, bright lights, and extremes in bedroom temperatur e.-Avoid alcohol, caffeinate d beverages, and nicotine products for at least 6 hours prior to bedtime.-A void strenuous exercise and large meals for at least 4 hours prior to bedtime.Di scussed supply cleaning and reordering .She is aware of reportable signs and symptoms.D iscussed weight management .She should follow up in 6 months. [id number] Azul Valente MD [facility] Internal Med [address] [address] 11/08/2023 10:25:12 11/08/2023 11:23:45 Dyslipidemia 949033978 E78.5 Hypothyroidism 60707839 E03.9 Essential hypertension 11221573 I10 Gout 49978211 M10.9 [id number] Eder Adamson MD [facility] [facility] [place] Pulmonolo gy [place] [phone] 03/11/2024 09:46:32 03/12/2024 08:41:46 Obstructive sleep apnea syndrome 34403038 G47.33 Health Concerns Section Related Observation LastModified by Organization Detai ls LastModified Time None Recorded Concern Status LastModified by Organization Details LastModified Time None Recorded Advance Directives Directive Y: copy in chart Payers Encounter Date Sequence Insurance Name Policy Number Policy Garcia Covered Member ID Garcia Member ID Guarantor Name 07/12/2023 1 [employer] (MEDICARE REPLACEMENT PPO) [id number] 1 An Kate [id number] An Kate 07/19/2023 1 [employer] (MEDICARE REPLACEMENT PPO) [id number] 1 An Ktae [id number] An Kate 09/11/2023 1 [employer] (MEDICARE REPLACEMENT PPO) [id number] 1 An Kate [id number] An Kate 11/08/2023 1 [employer] (MEDICARE REPLACEMENT PPO) [id number] 1 An Kate [id number] An Kate 03/11/2024 1 [employer] (MEDICARE REPLACEMENT PPO) [id number] 1 An Kate [id number] An Kate Notes Date Note Type Note Provider Name and Address Organization Details Recorded Time 3 text/html Ms Ktae presents today to follow up on ZAIRA and PAP machine.Her recall machine has been turning off and on on it's own.Turns off frequently at night while she is sleeping.Has reached out to [facility] and [employer] multiple times.She was instructed to get an order for a mew machine.Previously she felt like it was working well and had mild improvement with pressure changeDenies morning headaches and xerostomia.No GERD or sinus congestion.Does not wake due to mask leak or discomfortCurrently without consistent use she reports restless sleep and fatigue [facility]- [address], [place], [address], [employer] 07/12/2023 14:57:41 3 text/html Dyslipidemia needs to follow low-fat diet hypertension no headache no dizziness electrolyte abnormalities needs blood checked Azul Valente MD [address], [place], [address], [employer] 07/23/2023 16:38:09 3 text/html Ms Kate presents today to follow up on ZAIRA and PAP machine.New machine has been set up and she tells me that it is working well/Sleep is restfulDenies morning headaches and xerostomia.No GERD or sinus congestion.Does not wake due to mask leak or discomfortFatigue is improved, energy levels are good. TRISTEN Peña- [address], [place], [address], [employer] 09/11/2023 18:56:15 3 text/html Dyslipidemia needs to follow low-fat diet hypertension no headache no dizziness electrolyte abnormalities needs blood checked impression feeling pretty good Azul Valente MD [address], [place], [address], [facility] 11/08/2023 13:36:10 4 text/html Primary care/Referring provider: Azul Valente MD CC: When I travel, I don'y bring my CPAP unit with me. During the [facility] home sleep study on 01/19/17, AHI = 9. During the [facility] titration sleep study on 02/01/17, sleep onset = 24 minutes, REM onset = 86 minutes, ResMed medium AirFit N10 nasal mask was applied @ 8 cmH2O, PLMI = 1. At home since 09/11/23, the patient uses a ResMed AirSense 11 autoset unit with heated humidification. The patient does not need the ramp to start low and go up slowly on the pressure anymore. There is no xerostomia in a.m. There is no hose/mask condensation with water. The patient wears a ResMed small AirFit F20 full face mask without chin strap. There is no claustrophobia, no nostril/nose bridge irritation, no facial rash, no facial numbness, no nosebleeding. The patient feels more refreshed upon waking and daytime alertness is improved. Energy levels are sustained until mid afternoon, around 3 pm. At home, the patient sleeps from 10 pm to 6 am and wakes up without an alarm. Snoring: moderate, since . Snorting: no Choking: no Coughing: no Gasping: no Gagging: no Sighing: no Witnessed apnea: yes Twitching or jerking of leg(s), arm(s), body, head: no Teeth grinding: no Teeth clenching: no Sleeptalking: no Sleepwalking: no Sleep crying: no Bedwetting: no Tongue/lip/gum/cheek biting: no Sleeping with open mouth: yes Sleep paralysis: no Hypnagogic hallucinations: no Hypnopompic hallucinations: no Vivid dreams: no Difficulty with sleep onset: no Difficulty with sleep maintenance: yes Sleep interruptions: nocturia x 2 Patient wakes up with: fatigue Daytime cataplexy: no Morning hypersomnolence: no Afternoon hypersomnolence: yes Caffeine sources in diet: tea 2 glasses per day, soda 1/3 fountain drink per day, chocolate 1/2 candy per day Associated medical and psychiatric conditions: Congestive heart failure: no Coronary artery disease: no Myocardial infarction: no Hypertension: yes Stroke: no Bronchial asthma: no Chronic obstructive pulmonary disease: no Depression: no Bipolar disorder: no Anxiety: no Panic disorder: no Posttraumatic stress disorder: no Attention deficit and hyperactivity disorder: no Obsessive Compulsive disorder: no Schizophrenia: no Schizoaffective disorder: no Personality disorder: no Chronic analgesic use: yes tramadol Chronic sedative/hypnotic use: no EPWORTH SLEEPINESS SCALE (ESS) CHANCE OF DOZING SCORE 0 = would never doze 1 = slight chance of dozing 2 = moderate chance of dozing 3 = high chance of dozing SITUATION AND CHANCE OF DOZING Sitting and reading - 1 Watching television - 1 Sitting inactive in a public place (e.g. a theater or meeting) - 0 As a passenger in a car for an hour without a break - 1 Lying down to rest in the afternoon when circumstances permit - 2 Sitting and talking to someone - 0 Sitting quietly after lunch without alcohol - 0 In a car, while stopped for a few minutes in the traffic - 0 TOTAL SCORE 5 Subjectively, patient has a slight chance of dozing. Eder Adamson MD [address] [facility], [place] [address], [place], [address], [place] [facility] 03/11/2024 10:47:55 OBGyn Episode No OBEpisode recorded.
--- OUTSIDE RECORDS SUMMARY | 2025-02-04 16:08 | XMS_ITS | Clinical Summary ---
Author Organization [facility] Address [address] [place] [address] Care Team Providers Care Liaison Engineer Name Role Phone Yonis Valente MD Primary Care Provider [phone] Source Comments [facility],non-owned Affiliates and Associated Physician Practices is amultiple site organization consisting of ambulatory clinics and hospital sitesin [place], [place], [place] and [place]. This disclosure is being madepursuant to the Care Everywhere program and may not contain all information available regarding this patient. Last updated 18.[facility] Allergies Active Allergy Reactions Criticality Noted Date Comments Adhesive Sensitivity 12/05/2012 Penicillins 12/11/2017 Sulfa Drugs 12/11/2017 Medications * Be aware that medications may not be up to date on this document. Alwaysverify current medications with the patient. Medication Sig Dispensed Refills Start Date End Date Status allopurinol (ZYLOPRIM) 100 MG tablet Active levothyroxine (LEVOXYL) 88 MCG tablet Active atorvastatin (LIPITOR) 20 MG tablet Active lisinopril (PRINIVIL; ZESTRIL) 10 MG tablet Act ivan Multiple Vitamins-Minerals (MULTI COMPLETE PO) Active Calcium Carbonate (CALCARB 600 PO) Active pantoprazole EC (PROTONIX) 40 MG tablet 10/10/2017 A ctive traMADol (ULTRAM) 50 MG tablet TK 1 T PO TID PRN 0 10/31/2017 Active lisinopril (PRINIVIL; ZESTRIL) 20 MG tablet 10/10/2017 Act ivan levothyroxine (SYNTHROID) 112 MCG tablet 10/10/2017 Active atorvastatin (LIPITOR) 10 MG tablet 10/10/2017 Active Family History Medical History Relation Name Comments CAD (Coronary Artery Disease) Father HEART FAILURE/ATTACK Cancer - Other Mother Other - Cardiac Mother HEART FAILUR E/ATTACK Relation Name Status Comments Brother Alive Father Mother Sister Alive Social History Tobacco Use Types Packs/Day Years Used Date Smoking Tobacco: Former Cigarettes Q uit: 1984 Smokeless Tobacco: Never Alcohol Use Standard Drinks/Week Comments Yes 0 (1 standard drink = 0.6 oz pur e alcohol) WINE-OCCASIONALLY Sex and Gender Information Value Date Recorded Sex Assigned at Not on file Gender Identity Not on file Sexual Orientation Not on file Last Filed Vital Signs Vital Sign Reading Time Taken Comments Blood Pressure - - Pulse - - Temperature - - Respiratory Rate - - Oxygen Saturation - - Inhaled Oxygen Concentration - - Weight 77.1 kg (170 lb) 12/11/2017 11:55 AM SENIOR SALES CONSULTANT Height 167.6 cm (5' 6 ) 12/11/2017 11:55 AM SENIOR SALES CONSULTANT Body Mass Index 27.44 12/11/2017 11:55 AM SENIOR SALES CONSULTANT Plan of Treatment Health Maintenance Due Date Last Done Comments BONE DENSITY TESTING 1944 DTAP/TDAP/TD VACCINES (1 - Tdap) 1963 PNEUMOCOCCAL VACCINE 50+ (1 of 1 - PCV) 1994 ZOSTER VACCINE (1 of 2) 1994 Respiratory Syncytial Virus (RSV) Vaccine Pt: or over 60 yrs (1 - 1-dose 75+ series) 2019 COVID-19 VACCINE ( - 2023-2 5 season) 2024 INFLUENZA VACCINE (#1) 2024 DEPRESSION SCREENING 11/20/2024 MEDICARE AWV CALENDAR YEAR 2024 HEPATITIS B VACCINE Aged Out No longe r eligible based on patient's age to complete this topic HIB VACCINE Aged Out No longer eligi ble based on patient's age to complete this topic HPV VACCINE Aged Out No longer eligi ble based on patient's age to complete this topic MENINGOCOCCAL (Group B) VACC INE SHARED DECISION-MAKING Aged Out No longer eligibl e based on patient's age to complete this topic MENINGOCOCCAL GROUPS A/C/Y/W VACCINE Aged Out No longer eligible b ased on patient's age to complete this topic Care Teams Liaison Engineer Relationship Specialty Start Date End Date Yonis Valente MD PCP - General Internal Medicine 11/15/17
--- OUTSIDE RECORDS SUMMARY | 2025-02-04 16:08 | XMS_ITS | Encounter Summary ---
Author Organization [facility] Address [address] [place] [address] Care Team Providers Care Production Tech Name Role Phone Wali Banks MD Primary Care Provider [phone] Encounter Details Date Type Department Care Team (Late st Contact Info) Description 11/07/2002 Outpatient Historical [facility] Channing Croft MD NO ADDRESS ON FILE BENIGN NEOPLASM LG BOWEL (Primary Dx) Social History Tobacco Use Types Packs/Day Years Used Date Smoking Tobacco: Never Assessed Comments Unknown Sex and Gender Information Value Date Recorded Sex Assigned at Not on file Legal Sex Female 4:29 AM AUDITING CONTROL CLERK Gender Identity Not on file Sexual Orientation Not on file documented as of this encounter Plan of Treatment Not on file documented as of this encounter Visit Diagnoses Diagnosis Benign neoplasm of colon- Primary documented in this encounter Care Teams Production Tech Relationship Specialty Start Date End Date Wali Banks MD [address] [place] [address] [address] [place] [address] PCP - General 11/07/02 documented as of this encounter
--- OUTSIDE RECORDS SUMMARY | 2025-02-04 16:08 | XMS_ITS | CONTINUITY OF CARE DOCUMENT ---
Author Name sunny, sunny Address Unknown Organization [facility] Address [address] [place] [address] Phone [phone] Care Team Providers Care [employer] Dean Name Role Phone Flaquito MAR, Edenilson Dunlap Unavailable AZUL TOPETE MD Unavailable AZUL TOPETE MD Unavailable [phone] PROBLEMS Condition Status Date Provider Notes Murmur, cardiac, undiagnosed active Donald Balbuena Sleep apnea active Edenilson Huddleston MD Gout active Edenilson Huddleston MD Hypothyroidism active Edenilson Huddleston MD HTN essential active Edenilson Huddleston MD Hyperlipidemia active ? Edenilson Huddleston MD Chest pain active Edenilson Huddleston MD ENCOUNTERS Date Type Provider Location Encounter Diag nosis 2 - 3 In-person encounter Office Visit Edenilson Huddleston MD [facility] Chest painHyperlipidemiaHTN essentialHypothyroidismGoutSleep apnea VITAL SIGNS Date Observation Value Provider blood pressure, diastolic 76 mm[Hg] Da vin Gladys blood pressure, systolic 138 mm[Hg] Dac ia Gladys oxygen saturation, oximetry 95 % Stephanie Gladys respiratory rate E&M 16 /min Stephanie V oss pulse rate 77 /min Stephanie Gladys weight E&M 201 [lb_av] Stephanie Gladys ALLERGIES Allergy Name Onset Date Reaction Criticality Status SULFA Low Criticality active PENICILLIN Low Criticality active HISTORY OF MEDICATION USE Medication Status Instructions Dates Provider Indications Com ments VITAMIN D3 5000 UNIT ORAL CAPSULE active ONE TAB BY MOUTH DAILY Stephanie Gladys PROTONIX 40 MG ORAL TABLET DELAYED RELEASE active ONE TAB. DAILY Stephanie Gladys LISINOPRIL 20 MG ORAL TABLET active ONE TAB. DAILY Stephanie Gladys LIPITOR 10 MG ORAL TABLET active ONE TAB. DAILY Stephanie Gladys LEVOTHYROXINE SODIUM 125 MCG ORAL TABLET active ONE TAB. DAILY Stephanie Gladys ALLOPURINOL 100 MG ORAL TABLET active ONE TAB. DAILY Stephanie Gladys SOCIAL HISTORY Date Observation Value Provider social history revie wed E&M reviewed - no changes required Edenilson Huddleston MD alcohol use, type occassionally Stephanie Jack s alcohol use yes Stephanie Gladys smoking, year quit 1985 Stephanie Jack s cigarette use yes Stephanie Gladys smoking status Former smoker Stephanie Gladys FAMILY HISTORY Family Member Condition Mother Family History Breas t Cancer: INSURANCE PROVIDERS Payer name Policy type / Coverage type [place] red libertarian ID AETNA [facility] Other AETNA MEDICARE [place] PPO Medicare [id number] ADVANCE DIRECTIVES Name Date DISCUSSED - NO DECISION MADE TREATMENT PLAN Date Name Performer Cardiology hospital follow up:Prior history of ZAIRA, had been on CPAP. Has not been tested recently after gastric bypass, will obtain home sleep study to determine if she has any significatn desaturations which would require testing. Edenilson Huddleston MD Cardiology hospital follow up:At present with normal perfusion study, there is no interest in proceeding with invasive workup. However if she has recurrent episodes of chest discomfort will need to consider her for cardiac catheterization. This was discussed with her. Edenilson Huddleston MD Cardiology hospital follow up martin Huddleston MD Cardiology hospital follow up martin Huddleston MD Cardiology hospital follow up:Continue currently on lisinopril. Edenilson Huddleston MD Cardiology hospital follow up:On lipitor. Followed by PCP. Edenilson Huddleston MD Date Name Complete Echo Carotid Duplex Bilat eral Sleep Study Home HISTORY OF PROCEDURES Procedure Date Procedure Name Provider Procedure Notes S tatus EKG Edenilson Huddleston MD completed SNOMED-CT: [id number] Current Medications Documented Edenilson Huddleston MD completed
== END 2025-02-04 14:17 | disposition home or self-care (01) ==
PROVIDERS: PCP Internal Medicine; Visit Provider Internal Medicine
DX: R91.8 Other nonspecific abnormal finding of lung field (principal); R91.1 Solitary pulmonary nodule
CPT/HCPCS: 71250

== ENCOUNTER 2025-04-24 10:01 | Outpatient (CLI) | payer MEDICARE, SELFPAY ==
--- NOTE | ~2025-04-24 | XR_ITS ---
Cervical Spine: AP, lateral, open-mouth views Clinical History: Pain Findings: The normal lordotic curve is maintained. No fracture seen. There is 2 mm anterolisthesis of C4 over C5. There is severe degenerative disc narrowing at C5-C6 and C6-C7. There is moderate to adv anced facet arthropathy throughout the cervical spine.. Pre-vertebral soft tissues are unremarkable. Impression: Moderate to advanced degenerative spondylosis, especially at C5-C6 and C6-C7. 2 mm anterolisthesis of C4 over C5. Reviewed, dictated and finalized at [facility]. Impression: Moderate to advanced degenerative spondylosis, especially at C5-C6 and C6-C7. 2 mm anterolisthesis of C4 over C5.
== END 2025-04-24 10:02 | disposition home or self-care (01) ==
LOC: MICIMG 10:03
PROVIDERS: PCP Internal Medicine; Visit Provider Nurse Practitioner Family
DX: M47.812 Spondylosis without myelopathy or radiculopathy, cervical region (principal); M43.12 Spondylolisthesis, cervical region
CPT/HCPCS: 72040

== ENCOUNTER 2025-10-14 09:10 | Outpatient (CLI) | payer MEDICARE, SELFPAY ==
--- NOTE | ~2025-10-14 | CT_ITS ---
EXAMINATION:CT diagnostic chest wo con DATE: 10/14/2025 09:25 INDICATION: Prior finding of right lower lung nodules. Prior finding of angiomyolipoma upper right kidney. TECHNIQUE: Computed tomography (CT) of the chest was performed without intravenous contrast. Automated exposure control and iterative reconstruction technique were employed. The dose-length product (DLP) was 243.58 mGy-cm. COMPARISON: CT chest dated 02/04/2025. FINDINGS: Moderate centrilobular pattern of emphysema lungs. Stable predominantly groundglass opacity of left lower lobe with central bulla. Groundglass opacity measures 2.5 cm in diameter in the left lower lobe. Smaller solid nodules, in the right lower lobe measuring 4 to 7 mm in size are not reproduced in this examination. Multivessel coronary artery calcifications and calcific changes of aortic valve cusps of significant degree are noted again. Postoperative changes of the stomach. IMPRESSION: 1. Emphysematous lungs. Stable, 2.5 cm groundglass opacity of left lower lobe. 2 smaller solid nodules of right lower lobe are no longer seen. Continue annual CT screening. Lung RADS category 2 3. Multivessel coronary artery calcifications. Calcific changes of aortic valve cusps indicating possibly significant aortic valve stenosis. These correlate with echocardiographic findings. Reviewed, dictated and finalized at location T. WARE QUALITY TESTER IMPRESSION: 1. Emphysematous lungs. Stable, 2.5 cm groundglass opacity of left lower lobe. 2 smaller solid nodules of right lower lobe are no longer seen. Continue annual CT screening. Lung RADS category 2 3. Multivessel coronary artery calcifications. Calcific changes of aortic valve cusps indicating possibly significant aortic valve stenosis. These correlate w ith echocardiographic findings.
== END 2025-10-14 09:11 | disposition home or self-care (01) ==
LOC: MICIMG 09:11
PROVIDERS: PCP Internal Medicine; Visit Provider Internal Medicine
DX: R93.89 Abnormal findings on diagnostic imaging of other specified body structures (principal); J43.8 Other emphysema; I25.10 Atherosclerotic heart disease of native coronary artery without angina pectoris; I25.84 Coronary atherosclerosis due to calcified coronary lesion; I35.0 Nonrheumatic aortic (valve) stenosis; I70.0 Atherosclerosis of aorta
CPT/HCPCS: 71250

== ENCOUNTER 2025-11-19 13:54 | Emergency (ER) | payer MEDICARE, SELFPAY ==
--- NOTE | ~2025-11-19 | XR_ITS ---
EXAMINATION: XR knee RT 3V, XR tibia fibula RT 2V DATE: 11/19/2025 16:01 INDICATION: Right knee and lower leg pain and bruising post fall TECHNIQUE: 1. Anteroposterior, oblique and crosstable lateral views of the right knee were obtained. 2. AP and lateral views of the right lower leg were each obtained on overlapping proximal and distal images. COMPARISON: None. FINDINGS: Bone alignment is normal. No acute fracture. Suggestion of a possible old healed fracture at the distal metadiaphyseal region of the fibula. 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 No right knee or ankle joint effusion. There is dense prepatellar soft tissue swelling which suggests a post traumatic hematoma. There is more diffuse subcutaneous edema extending from the distal thigh to the distal calf. IMPRESSION: 1. Likely prepatellar hematoma. No acute osseous abnormality. 2. Mild osteoarthritis at the right knee, ankle, mid and hindfoot. Reviewed, dictated and finalized at location A. M FINISHER IMPRESSION: 1. Likely prepatellar hematoma. No acute osseous abnormality. 2. Mild osteoarthritis at the right knee, ankle, mid and hindfoot.
--- OUTSIDE RECORDS SUMMARY | 2025-11-19 13:56 | XMS_ITS | Clinical Summary ---
Author Organization [facility] Address [address] [place] [address] Care Team Providers Care Accounts Receivable Manager Name Role Phone Yonis Valente MD Primary Care Provider Allergies Active Allergy Reactions Criticality Noted Date Comments Adhesive Unknown 12/05/2012 Penicillins Rash 10/18/2007 Reaction: Rash, Sulfa (Sulfonamide Antibiotics) Unknown 09/21 Sulfasalazine Unknown 12/11/2017 Medications allopurinol (ZYLOPRIM) 100 mg tablet daily. 7 Active calcium carbonate-vitamin D3 1,500 mg (600mg elemental) -800 unit per tablet TAKE 1 TABLET DAILY. +d3 Active atorvastatin (LIPITOR) 10 mg tablet daily. 7 Active multivitamin tabletIndications: Vitamin Deficiency Prevention daily. Active traMADol (ULTRAM) 50 mg tablet PRN Active cyanocobalamin (Vitamin B-12) 100 mcg tabletIndications: Prevention of Vitamin B12 Deficiency unsure med dosage qd Active cholecalciferol (VITAMIN D-3) 50,000 unit capsule 3000 IU QD Active naloxone (Narcan) 4 mg/actuation spray,non-aerosol Narcan 4 mg/actuation nasal spray UTD NEEDED NASALLY 1 DAY Active levothyroxine (SYNTHROID) 75 mcg tablet 2 Active traMADol ER (ULTRAM-ER) 200 mg 24 hr tablet Take 1 tablet (200 mg total) by mouth daily 2 Active amLODIPine (NORVASC) 5 mg tablet 4 Active busPIRone (BUSPAR) 5 mg tablet Take 1 tablet (5 mg total) by mouth 2 (two) times a day 4 Active famotidine (PEPCID) 20 mg tablet Take 1 tablet (20 mg total) by mouth 2 (two) times a day Active apixaban (ELIQUIS) 5 mg tablet Take 1 tablet (5 mg total) by mouth 2 (two) times a day Active ondansetron ODT (ZOFRAN-ODT) 4 mg disintegrating tablet Take 1 tablet (4 mg total) by mouth every 8 (eight) hours as needed for nausea or vomiting 20 tablet 5 Active meclizine (ANTIVERT) 25 mg tablet Take 1 tablet (25 mg total) by mouth 3 (three) times a day as needed for dizziness 30 tablet 3 5 Active triamterene-hydroC HLOROthiazide 37.5-25 mg per tablet/capsule Take 1 tablet/capsul e by mouth daily 90 capsule 3 5 Active betahistine Take 1 capsule (8 mg total) by mouth 4 (four) times a day 240 capsule 3 5 Active Active Problems Problem Noted Date Diagnosed Date Nonrheumatic aortic (valve) stenosis 12/11/2024 Essential hypertension 12/11/2024 Mixed hyperlipidemia 12/11/2024 History of pulmonary embolism 12/11/2024 Dysphagia 01/10/2020 Overview (01/10/2020): Added automatically from request for surgery [id number] Bariatric surgery status 12/28/2018 Immunizations Immunization Administration [...] Date Smoking Tobacco: Former Cigarettes 1 15 965 - 1979 Smokeless Tobacco: Never Alcohol [...] on file Legal Sex Female 2:19 AM CANDY DIPPER Gender Identity Not on file Sexual Orientation Not on file 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 Not on file Not on file 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 Not on file Not on file Last Filed Vital Signs Vital Sign Reading Time Taken Comments Blood Pressure 132/68 12/11/2024 10:16 AM CANDY DIPPER Pulse 84 12/11/2024 10:16 AM CANDY DIPPER Temperature 37.1 C (98.8 F) 04/18/2024 1:57 PM CDT Respiratory Rate 18 05/06/2024 2:11 PM CDT Oxygen Saturation 98% 12/11/2024 10:16 AM CANDY DIPPER Inhaled Oxygen Concentration - - Weight 88.9 kg (196 lb) 12/11/2024 10:16 AM CANDY DIPPER Height 165.1 cm (5' 5) 12/11/2024 10:16 AM CANDY DIPPER Body Mass Index 32.62 12/11/2024 10:16 AM CANDY DIPPER Plan of Treatment Health Maintenance Due Date Last Done Comments Depression Screening 1944 Fall Risk Assessment 1944 DTaP/Tdap/Td Vaccine (1 - Tdap) 1955 Hepatitis B Screening 1962 Pneumococcal vaccine 65+ (1 of 1 - PCV) 1994 Well Visit 65+ 2009 Osteoporosis Screening-Bone Density Scan 07/19/2023 07/19/2021 Covid-19 Vaccine ( - 2024-2 6 season) 2025 09/12/2021, 12/27/2020, 11/29/2020 Influenza Vaccine (#1) 2025 , 08/26/2020, 08/05/2019, Additional history exists Colon Cancer Screening-CT Colonography Discontinued 05/16/2014 Colon Cancer Screening-Colonoscopy Discontinued 05/16/2014 Colon Cancer Screening-DNA Stool Discontinued 05/16/20 14 Colon Cancer Screening-FIT Discontinued 05/16/2014 Colon Cancer Screening-FOBT Discontinued 05/16/2014 Colon Cancer Screening-Sigmoidoscopy Discontinued 05/16/2014 Colorectal Cancer Screening Discontinued Zoster Vaccine Completed 10/29/2018, 08/20, 08/21/2018, Additional history exists Procedures Procedure Name Priority Date/Time Associated Diagnosis Comments COLONOSCOPY REPORT 05/16/2014 from Last 3 Months or Most Recently Relevant to Health Maintenance Results * COLONOSCOPY REPORT (05/16/2014) Anatomical Region Laterality Modality Other Narrative 05/16/2014 Ordered by an unspecified provider. us Historical Provider GI PROCEDURE ORDERABLES F inal Result from Last 3 Months or Most Recently Relevant to Health Maintenance Insurance UHC MEDICARE ADVANTAGE MEDICARE Advance Directives For more information, please contact: [phone] * Full Code (Latest Code Status on File) Date Activated Date Inactivated Comments 01/23/2020 2:57 PM 01/23/2020 9:12 PM Care Teams Accounts Receivable Manager Relationship Specialty Start Date End Date Yonis Valente MD PCP - General Internal Medicine 05/06/24
--- OUTSIDE RECORDS SUMMARY | 2025-11-19 13:56 | XMS_ITS | Encounter Summary ---
Author Organization [facility] Address 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
--- OUTSIDE RECORDS SUMMARY | 2025-11-19 13:56 | XMS_ITS | Clinical Summary ---
Author Organization [facility] Address [address] [facility] Attn: Epic Prelude ADT [place] [address] Care Team Providers Care [employer] Senior Officer Name Role Phone Wali Banks MD Primary Care Provider [phone] Social History Tobacco Use Types Packs/Day Years Used Date Smoking Tobacco: Never Assessed Comments Unknown Sex and Gender Information Value Date Recorded Sex Assigned at Not on file Legal Sex Female 4:29 AM PHYSICIAN ASSISTANT PRIMARY CARE Gender Identity Not on file Sexual Orientation Not on file Plan of Treatment Health Maintenance Due Date Last Done Comments DTAP/TDAP/TD VACCINES (1 - Tdap) 1963 PNEUMOCOCCAL VACCINE 50+ YEARS (1 of 1 - PCV) 08/27/19 94 ZOSTER VACCINE (1 of 2) 1994 OSTEOPOROSIS SCREENING 2009 RSV VACCINE (60+ or ) (1 - 1-dose 75+ series) 2019 INFLUENZA VACCINE (#1) 2025 Care Teams Air [employer] Senior Officer Relationship Specialty Start Date End Date Wali Banks MD [address] [place] [phone] PCP - General 11/07/02
--- OUTSIDE RECORDS SUMMARY | 2025-11-19 13:56 | XMS_ITS | Clinical Summary ---
Author Organization [facility] Address [address] [place] [address] Care Team Providers Care Butcher Assistant Name Role Phone Yonis Valente MD Primary Care Provider [phone] Source Comments [facility],non-owned Affiliates and Associated Physician Practices is amultiple site organization consisting of ambulatory clinics and hospital sitesin [place], [place], [place] and [place]. This disclosure is being madepursuant to the Care Everywhere program and may not contain all information available regarding this patient. Last updated 18.[facility] Allergies Active Allergy Reactions Criticality Noted Date Comments Adhesive Sensitivity 12/05/2012 Penicillins 12/11/2017 Sulfa Drugs 12/11/2017 Medications * Be aware that medications may not be up to date on this document. Alwaysverify current medications with the patient. allopurinol (ZYLOPRIM) 100 MG tablet Active levothyroxine (LEVOXYL) 88 MCG tablet Active atorvastatin (LIPITOR) 20 MG tablet Active lisinopril (PRINIVIL; ZESTRIL) 10 MG tablet Active Multiple Vitamins-Mineral s (MULTI COMPLETE PO) Active Calcium Carbonate (CALCARB 600 PO) Act ivan pantoprazole EC (PROTONIX) 40 MG tablet 10/10/2017 Active traMADol (ULTRAM) 50 MG tablet TK 1 T PO TID PRN 0 10/31/2017 Active lisinopril (PRINIVIL; ZESTRIL) 20 MG tablet 10/10/2017 Active levothyroxine (SYNTHROID) 112 MCG tablet 10/10/2017 Active atorvastatin (LIPITOR) 10 MG tablet 10/10/2017 Active Family History Medical History Relation Name Comments CAD (Coronary Artery Disease) Father HEART FAILURE/ATTACK Cancer - Other Mother Other - Cardiac Mother HEART FAILUR E/ATTACK Relation Name Status Comments Brother Alive Father Mother Sister Alive Social History Tobacco Use Types Packs/Day Years Used Date Smoking Tobacco: Former Cigarettes 1 Q uit: 1984 Smokeless Tobacco: Never Alcohol Use Standard Drinks/Week Comments Yes 0 (1 standard drink = 0.6 oz pur e alcohol) WINE-OCCASIONALLY Comments Unknown Sex and Gender Information Value Date Recorded Sex Assigned at Not on file Legal Sex Female 2:58 PM MID LEVEL CLINICIAN Gender Identity Not on file Sexual Orientation Not on file Occupation Industry Job Start Date Job End Date RETIRED Not on file Not on file Not on file Last Filed Vital Signs Vital Sign Reading Time Taken Comments Blood Pressure - - Pulse - - Temperature - - Respiratory Rate - - Oxygen Saturation - - Inhaled Oxygen Concentration - - Weight 77.1 kg (170 lb) 12/11/2017 11:55 AM MID LEVEL CLINICIAN Height 167.6 cm (5' 6) 12/11/2017 11:55 AM MID LEVEL CLINICIAN Body Mass Index 27.44 12/11/2017 11:55 AM MID LEVEL CLINICIAN Plan of Treatment Health Maintenance Due Date Last Done Comments BONE DENSITY TESTING 1944 DTAP/TDAP/TD VACCINES (1 - Tdap) 1963 PNEUMOCOCCAL VACCINE 50+ (1 of 1 - PCV) 1994 ZOSTER VACCINE (1 of 2) 1994 Respiratory Syncytial Virus (RSV) Vaccine Pt: or over 60 yrs (1 - 1-dose 75+ series) 2019 DEPRESSION SCREENING 11/20/2024 COVID-19 VACCINE ( - 2024-2 6 season) 2025 INFLUENZA VACCINE (#1) 2025 HEPATITIS B VACCINE Aged Out No longe [...] on patient's age to complete this topic Insurance MANAGED MEDICARE ADV Care Teams Butcher Assistant Relationship Specialty Start Date End Date Yonis Valente MD PCP - General Internal Medicine 11/15/17
[2025-11-19 13:59] VITALS: BP 145/66; PULSE 98; RESP 20; TEMP 36.3; O2SAT 98
--- NOTE | 2025-11-19 15:30 | ED.LOWEXIN ---
HPI - Extremity Injury (Lower) General Chief Complaint: Extremity Injury, Lower Stated Complaint: right knee pain Time Seen by Provider: 11/19/25 15:28 Source: patient Mode of arrival: ambulatory Limitations: no limitations History of Present Illness HPI Narrative: Patient is an 80 y/o female who presents to the ED with c/o R knee pain/swelling. Patient reports she tripped and fell on 11/16 and landed on her R knee. Has since developed diffuse swelling/bruising throughout her R knee/R lower leg. Is able to ambulate, but has pain with this. Takes tramadol at home. Is on eliquis d/t hx of blood clots and reports compliance with this. Denies numbness. Denies any other injuries from the fall. States she has seen Dr. Bella for R knee arthritis in the past and told she needed a knee replacement. Related Data Home Medications ?Medication ?Instructions ?Recorded ?Confirmed ?Last Taken ?Type Adults Multivitamin 1 tablet PO DAILY 09/11/24 06/05/25 09/10/24 History Calcium 600 with Vitamin D3 1 tablet PO DAILY 09/11/24 06/05/25 09/10/24 History Nf Betahistine 8 mg PO QID 09/11/24 06/05/25 09/11/24 History 0600 Vitamin B-12 1 tablet PO WEEKLY 09/11/24 06/05/25 09/10/24 History allopurinol 100 mg tablet 100 mg DAILY 09/11/24 06/05/25 09/11/24 06:30 History amlodipine 5 mg tablet 5 mg PO DAILY 09/11/24 06/05/25 09/11/24 06:30 History atorvastatin 10 mg tablet 10 mg PO DAILY 09/11/24 06/05/25 09/11/24 06:30 History 10 buspirone 5 mg tablet 5 mg PO BID 09/11/24 06/05/25 09/11/24 06:30 History famotidine 20 mg tablet 20 mg PO BID 09/11/24 06/05/25 09/11/24 History 0630 levothyroxine 75 mcg tablet 75 mcg PO DAILY 09/11/24 06/05/25 09/11/24 06:30 History 75 tramadol 50 mg tablet 50 mg PO DAILY PRN Breakthrough 09/11/24 06/05/25 Unknown History Pain triamterene 37.5 1 cap PO DAILY 09/11/24 06/05/25 09/11/24 06:30 History mg-hydrochlorothiazide 25 mg capsule cholecalciferol (vitamin D3) 125 125 mcg PO DAILY 09/12/24 06/05/25 Unknown History mcg (5,000 unit) tablet (Vitamin D3) Allergies Allergy/AdvReac Type Severity Reaction Status Date / Time Sulfa (Sulfonamide Allergy Mild RASH Verified 11/19/25 13:55 Antibiotics) Penicillins Allergy Unknown Unknown Verified 11/19/25 13:55 sulfanilamide Allergy Unknown Unknown Verified 11/19/25 13:55 Review of Systems Review of Systems: All systems reviewed & are unremarkable except as noted in HPI. 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 Mixed hyperlipidemia Hypothyroidism, unspecified Gout, unspecified Essential (primary) hypertension Anemia, unspecified Surgical History Surgical History History of tubal ligation History of cholecystectomy History of gastric bypass History of tonsillectomy History of uvulectomy History of esophagogastroduodenoscopy Family History Family History Mother Carcinoma of colon Family history of coronary artery disease Family history of malignant neoplasm of breast in first degree relative Father Family history of coronary artery disease Social History Social History Social History: Surrogate medical decision maker: Moisés Kate, son. Code status: Full code. Smoking status: Former smoker Tobacco type: cigarettes Smoking end date: 10/20/94 Alcohol intake: current Drinks per week: 0 Substance use: never Substance use type: does not use Lack of Transportation: No Lack of Food: Never True Current Housing: I Have Housing Concerned About Future Housing: No Difficulty Paying Gas/Electric Bills: No Difficulty Paying for Meds: No Currently Unemployed: No Education: Master's Degree or Higher Difficulty w/ Childcare or Family Care: No Additional living arrangements comments: The patient lives in [place]. 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 Spiritual care concerns: No Exam Narrative: GENERAL: Well appearing, well-nourished, non-toxic, in no acute distress. HEAD: Normocephalic, atraumatic. RESPIRATORY: Airway patent, respirations nonlabored. CARDIOVASCULAR: Regular rate and rhythm without murmurs, rubs, or gallops. Pedal pulses intact MUSCULOSKELETAL: Moves all extremities. Diffuse swelling throughout R anterior knee with marked bruising throughout R anterior knee medially and laterally, extending down proximal tib/fib region. Diffuse TTP in inferior and lateral joint spaces. Sensation intact. Compartments are still soft, no focal hematoma. SKIN: Warm, dry, normal color. NEURO: A&O X3. Speech clear. Steady gait. No ataxic movements. PSYCHIATRIC: Appropriate mood and affect. Normal interaction. Course Vital Signs Vital signs: Vital Signs Temperature 97.3 F L 11/19/25 13:59 Pulse Rate 98 11/19/25 13:59 Respiratory Rate 20 11/19/25 13:59 Blood Pressure 145/66 H 11/19/25 13:59 Pulse Oximetry 98 11/19/25 13:59 Temperature 97.3 F L 11/19/25 13:59 Pulse Rate 90 11/19/25 17:36 Respiratory Rate 16 11/19/25 17:36 Blood Pressure 143/61 H 11/19/25 17:36 Pulse Oximetry 96 11/19/25 17:36 [facility] MDM Narrative Medical decision making narrative: Patient?s injury is consistent with musculoskeletal etiology. No signs of neurologic or vascular compromise on physical examination. Compartments are soft without signs of compartment syndrome. XR R knee/tib/fib showing prepatellar hematoma. No fracture. Pain is consistent with exam and injury. Low suspicion for DVT. Patient is on Eliquis and compliant with this. Patient is felt to be stable for discharge home and further outpatient management and treatment. Given Corbin bandage for compression/support. Advised to follow-up with orthopedics. Differential Diagnosis Differential Diagnosis: knee strain, patellar fracture, tibial fracture, knee effusion, dvt Medical Records I have reviewed the following patient records and this information was taken into consideration when formulating the assessment and plan.: previous labs, previous ER visits, previous hospitalizations and previous clinic visits Imaging Data Attestation: I personally reviewed and interpreted this imaging study as follows: Radiologist's impression: ITS Impressions Knee X-Ray 11/19/25 16:27 IMPRESSION: 1. Likely prepatellar hematoma. No acute osseous abnormality. 2. Mild osteoarthritis at the right knee, ankle, mid and hindfoot. Tibia/Fibula X-Ray 11/19/25 16:27 IMPRESSION: 1. Likely prepatellar hematoma. No acute osseous abnormality. 2. Mild osteoarthritis at the right knee, ankle, mid and hindfoot. Discharge Plan Discharge Clinical Impression: Traumatic hematoma of right knee, Strain of right knee Patient Disposition: Home Condition: Stable Instructions: Antibiotic Form, Knee Pain (ED), Hematoma (ED) Additional Instructions: Your imaging showed evidence of a hematoma to your knee. Recommend Corbin bandage for compression and support. Continue Tylenol and tramadol as needed for pain. Recommend follow-up with orthopedics for further evaluation. Call office to make appointment. Return to the ED if you experience worsening or severe pain/swelling, recurrent fall or injury, numbness, or any other symptoms of concern. Patient Language: Tajik Prescriptions: No Action allopurinol 100 mg tablet 100 mg DAILY levothyroxine 75 mcg tablet 75 mcg PO DAILY atorvastatin 10 mg tablet 10 mg PO DAILY tramadol 50 mg tablet 50 mg PO DAILY PRN (Reason: Breakthrough Pain) Patient Comments: Taken a couple of weeks ago triamterene-hydrochlorothiazid 37.5-25 mg capsule 1 cap PO DAILY buspirone 5 mg tablet 5 mg PO BID amlodipine 5 mg tablet 5 mg PO DAILY famotidine 20 mg tablet 20 mg PO BID Adults Multivitamin 1 tablet PO DAILY Calcium 600 with Vitamin D3 1 tablet PO DAILY Vitamin B-12 1 tablet PO WEEKLY Nf Betahistine 8 mg 8 mg PO QID Patient Comments: patient medication for [place] is formulated at [facility] in [place] [phone]. Patient has home med here at hospital cholecalciferol (vitamin D3) [Vitamin D3] 125 mcg (5,000 unit) Tablet 125 mcg PO DAILY Eliquis 5 mg Tablet 5 mg PO Q12HR Qty: 60 3RF Follow-up/Referrals: Ambrosio,MD Yonis [Primary Care Provider] Bautista Bella MD [Physician, Orthopedics] Time of Disposition: 17:23
[2025-11-19] MEDS: ACETAMINOPHEN 500 MG TABLET 1000 MG PO (15:31)
[2025-11-19] MEDS: traMADol HCL (*CRX) 50 MG TABLET PO (15:34)
--- OUTSIDE RECORDS SUMMARY | 2025-11-19 15:54 | XMS_ITS | Clinical Summary ---
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 Not on file Not on file Last Filed Vital Signs Vital Sign Reading Time Taken Comments Blood Pressure 132/68 12/11/2024 10:16 AM EXHIBITIONS CURATOR Pulse 84 12/11/2024 10:16 AM EXHIBITIONS CURATOR Temperature 37.1 C (98.8 F) 04/18/2024 1:57 PM CDT Respiratory Rate 18 05/06/2024 2:11 PM CDT Oxygen Saturation 98% 12/11/2024 10:16 AM EXHIBITIONS CURATOR Inhaled Oxygen Concentration - - Weight 88.9 kg (196 lb) 12/11/2024 10:16 AM EXHIBITIONS CURATOR Height 165.1 cm (5' 5) 12/11/2024 10:16 AM EXHIBITIONS CURATOR Body Mass Index 32.62 12/11/2024 10:16 AM EXHIBITIONS CURATOR Plan of Treatment Health Maintenance Due Date [...] to Health Maintenance Insurance UHC MEDICARE ADVANTAGE [facility] MEDICARE Address: [address] [address] [place] [address] MEDICARE Advance Directives For more information, please contact: [phone] * Full Code (Latest Code Status on File) Date Activated Date Inactivated Comments 01/23/2020 2:57 PM 01/23/2020 9:12 PM Care Teams Cloth Mercerizer Operator Relationship Specialty Start Date End Date Yonis Valente MD PCP - General Internal Medicine 05/06/24
--- OUTSIDE RECORDS SUMMARY | 2025-11-19 15:54 | XMS_ITS | Clinical Summary ---
Author Organization [facility] Address [address] Attn: Epic Prelude ADT [place] [address] Care Team Providers Care Rehabilitation Aide Name Role Phone Wali Banks MD Primary Care Provider [phone] Social History Tobacco Use Types Packs/Day Years Used Date Smoking Tobacco: Never Assessed Comments Unknown Sex and Gender Information Value Date Recorded Sex Assigned at Not on file Legal Sex Female 4:29 AM PRECISION AGRONOMIST Gender Identity Not on file Sexual [...] 2019 INFLUENZA VACCINE (#1) 2025 Care Teams Rehabilitation Aide Relationship Specialty Start Date End Date Wali Banks MD [address] [place] [id number] PCP - General 11/07/02
--- OUTSIDE RECORDS SUMMARY | 2025-11-19 15:54 | XMS_ITS | Continuity of Care Document ---
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 chest to follow up on nodule CBC CMP lipid A1c we will go ahead make cardiology referral for the aortic valvular pathology and see me in 4 months [email or web address] Not available 09/13/2025 16:25:06 Plan of Treatment Reminders Order Date Submit Date Provider Last Modified By Organization Details Last Modified Time Details Appointments ANY 15 2025 09:15A Shana Valente MD Not available Not available Not available Lab HbA1c (hemoglob in A1c), blood 2024 [facility], [address], [address], [place], [address], 09/11/2025 06:23:31 CMP, serum or plasma 2024 [facility], [address], [address], [place], [address], 09/11/2025 06:23:30 CBC w/ auto diff 2024 [facility], [address], [address], [place], [address], 09/11/2025 06:23:31 lipid panel, serum 2024 [facility], [address], [address], [place], [address], 09/11/2025 06:23:30 Referral None recorded. Procedures None recorded. Surgeries None recorded. Imaging CT, chest, w/o contrast 2024 [facility] (Imaging), [address], [place], [address], 10/24/2025 15:18:43 US, echocardi ogram 2024 [email or web address], [address], [place], [address], 09/15/2025 11:24:56 Medication Orders None recorded. Patient TargetsNo targets recorded. Patient Instructions Encounter Date Encounter Id Patient Instructions Last Modified By Organization Details Last Modified Time 09/10/2025 [id number] A healthy lifestyle: care instructions [email or web address] Not available 09/10/2025 11:36:09 Reason for Referral None Reported. Results Created Date Observation Date Name Description Value Unit Range Abnormal Flag Note LastModifiedBy Organization Detail LastModifiedTime 09/10/2009/11/2025 LIPID PANEL cholesterol, total 163 mg/dL 100-19 9 Not Available [facility] ([facility]) [address], [place], [place], [address], 09/11/2025 06:23:30 09/10/2009/11/2025 LIPID PANEL triglyceride s 102 mg/dL 0-149 Not Available [facility] ([facility]) [address], [place], [place], [address], 09/11/2025 06:23:30 09/10/2009/11/2025 LIPID PANEL HDL cholesterol 67 mg/dL >39 Not Available [facility] ([facility]) [address] [place], [address], 09/11/2025 06:23:30 09/10/20 25 09/11/2025 LIPID PANEL VLDL cholesterol cassidy 18 mg/dL 5-40 Not Available [facility] ([facility]) [address], [place], [place], [address], 09/11/2025 06:23:30 09/10/20 25 09/11/2025 LIPID PANEL LDL chol calc ([facility]) 78 mg/dL 0-99 Not Available [facility] ([facility]) [address], [place], [place], [address], 09/11/2025 06:23:30 09/10/2009/10/2025 COMP. METAB OLIC PANEL (14) interpretati on: COMMEN T GFR estim ate at the follo wing level for >or=3 month s is class ified as follo ws: GFR WITH KIDNE Y DAMAG E WITHO UT KIDNE Y DAMAG E >or=9 0 Stage 1 Lia l 60-89 Stage 2 Decr eased GFR 30-59 Stage 3 Stage 3 15-29 Stage 4 Stage 4 <15 (or dialy sis) Stage 5 Stage 5 Estim ated GFR will over estim ate true GFR if serum creat inine is risin g as in acute renal failu re and will under estim ate true GFR if serum creat inine is decli nadine as in resol ving acute renal failu re. Addit ional infor gaurav n may be found at www.k [email or web address]. org. Not Available [facility] ([facility]) [address], [place], [place], [address], 09/11/2025 06:23:30 09/10/20 25 09/11/2025 COMP. METAB OLIC PANEL (14) glucose 87 mg/dL 70-99 Not Available [facility] ([facility]) [address], [place], [place], [address], 09/11/2025 06:23:30 09/10/20 25 09/11/2025 COMP. METAB OLIC PANEL (14) BUN 19 mg/dL 8-27 Not Available [facility] ([facility]) [address], [place], [address], 09/11/2025 06:23:30 09/10/2009/11/2025 COMP. METAB OLIC PANEL (14) creatinine 1.18 mg/dL 0.57-1 .00 above high normal Not Available [facility] ([facility]) [address], [place], [address], 09/11/2025 06:23:30 09/10/2009/11/2025 COMP. METAB OLIC PANEL (14) eGFR 46 mL/mi n/1.7 3 >59 below low normal Not Available [facility] ([facility]) [address], [place], [address], 09/11/2025 06:23:30 09/10/20 25 09/11/2025 COMP. METAB OLIC PANEL (14) BUN/creatini ne ratio 16 12-28 Not Available [facility] ([facility]) [address], [place], [address], 09/11/2025 06:23:30 09/10/2009/11/2025 COMP. METAB OLIC PANEL (14) sodium 139 mmol/ L 134-14 4 Not Available [facility] ([facility]) [address], [place], [address], 09/11/2025 06:23:30 09/10/20 25 09/11/2025 COMP. METAB OLIC PANEL (14) potassium 4.7 mmol/ L 3.5-5. 2 Not Available [facility] ([facility]) [address], [place], [address], 09/11/2025 06:23:30 09/10/20 25 09/11/2025 COMP. METAB OLIC PANEL (14) chloride 103 mmol/ L 96-106 Not Available [facility] ([facility]) [address], [place], [address], 09/11/2025 06:23:30 09/10/20 25 09/11/2025 COMP. METAB OLIC PANEL (14) carbon dioxide, total 24 mmol/ L Not Available [facility] ([facility]) [address], [place], [address], 09/11/2025 06:23:30 09/10/2009/11/2025 COMP. METAB OLIC PANEL (14) calcium 9.5 mg/dL 8.7-10 .3 Not Available [facility] ([facility]) [address], [place], [address], 09/11/2025 06:23:30 09/10/2009/11/2025 COMP. METAB OLIC PANEL (14) protein, total 6.3 g/dL 6.0-8. 5 Not Available [facility] ([facility]) [address], [place], [address], 09/11/2025 06:23:30 09/10/20 25 09/11/2025 COMP. METAB OLIC PANEL (14) albumin 4.0 g/dL 3.7-4. 7 Not Available [facility] ([facility]) [address], [place], [address], 09/11/2025 06:23:30 09/10/20 25 09/11/2025 COMP. METAB OLIC PANEL (14) globulin, total 2.3 g/dL 1.5-4. 5 Not Available [facility] ([facility]) [address], [place], [address], 09/11/2025 06:23:30 09/10/2009/11/2025 COMP. METAB OLIC PANEL (14) bilirubin, total 0.7 mg/dL 0.0-1. 2 Not Available [facility] ([facility]) [address], [place], [address], 09/11/2025 06:23:30 09/10/2009/11/2025 COMP. METAB OLIC PANEL (14) alkaline phosphatase 110 IU/L 48-129 Not Available [facility] ([facility]) [address] [place], [address], 09/11/2025 06:23:30 09/10/20 25 09/11/2025 COMP. METAB OLIC PANEL (14) AST (SGOT) 16 IU/L 0-40 Not Available [facility] ([facility]) [address], [place], [place], [address], 09/11/2025 06:23:30 09/10/2009/11/2025 COMP. METAB OLIC PANEL (14) ALT (SGPT) 9 IU/L 0-32 Not Available [facility] ([facility]) [address] [place], [address], 09/11/2025 06:23:30 09/10/2009/10/2025 HEMOG LOBIN A1C hemoglobin A1C 5.3 % 4.8-5. 6 Predi abete s: 5.7 - 6.4 Diabe ximena: >6.4 Glyce anirudh contr ol for adult s with diabe ximena: <7.0 Not Available [facility] ([facility]) [address] [place], [address], 09/11/2025 06:23:31 09/10/2009/10/2025 CBC WITH DIFFE RENTI AL/PL ATELE T WBC 6.4 x10e3 /uL 3.4-10 .8 Not Available [facility] ([facility]) [address] [place], [address], 09/11/2025 06:23:31 09/10/20 25 09/10/2025 CBC WITH DIFFE RENTI AL/PL ATELE T RBC 3.90 x10e6 /uL 3.77-5 .28 Not Available [facility] ([facility]) [address] [place], [address], 09/11/2025 06:23:31 09/10/20 25 09/10/2025 CBC WITH DIFFE RENTI AL/PL ATELE T hemoglobin 12.3 g/dL 11.1-1 5.9 Not Available [facility] ([facility]) [address], [place], [place], [address], 09/11/2025 06:23:31 09/10/20 25 09/10/2025 CBC WITH DIFFE RENTI AL/PL ATELE T hematocrit 37.7 % 34.0-4 6.6 Not Available [facility] ([facility]) [address] [place], [address], 09/11/2025 06:23:31 09/10/20 25 09/10/2025 CBC WITH DIFFE RENTI AL/PL ATELE T MCV 97 fL 79-97 Not Available [facility] ([facility]) [address], [place], [place], [address], 09/11/2025 06:23:31 09/10/20 25 09/10/2025 CBC WITH DIFFE RENTI AL/PL ATELE T MCH 31.5 pg 26.6-3 3.0 Not Available [facility] ([facility]) [address] [place], [address], 09/11/2025 06:23:31 09/10/20 25 09/10/2025 CBC WITH DIFFE RENTI AL/PL ATELE T MCHC 32.6 g/dL 31.5-3 5.7 Not Available [facility] ([facility]) [address] [place], [address], 09/11/2025 06:23:31 09/10/20 25 09/10/2025 CBC WITH DIFFE RENTI AL/PL ATELE T RDW 13.5 % 11.7-1 5.4 Not Available [facility] ([facility]) [address] [place], [address], 09/11/2025 06:23:31 09/10/2009/10/2025 CBC WITH DIFFE RENTI AL/PL ATELE T platelets 392 x10e3 /uL 150-45 0 Not Available [facility] ([facility]) [address], [place], [place], [address], 09/11/2025 06:23:31 09/10/2009/10/2025 CBC WITH DIFFE RENTI AL/PL ATELE T neutrophils 72 % notest ab. Not Available [facility] ([facility]) [address], [place], [place], [address], 09/11/2025 06:23:31 09/10/2009/10/2025 CBC WITH DIFFE RENTI AL/PL ATELE T lymphs 19 % notest ab. Not Available [facility] ([facility]) [address], [place], [place], [address], 09/11/2025 06:23:31 09/10/20 25 09/10/2025 CBC WITH DIFFE RENTI AL/PL ATELE T monocytes 8 % notest ab. Not Available [facility] ([facility]) [address], [place], [place], [address], 09/11/2025 06:23:31 09/10/20 25 09/10/2025 CBC WITH DIFFE RENTI AL/PL ATELE T eos 1 % notest ab. Not Available [facility] ([facility]) [address], [place], [place], [address], 09/11/2025 06:23:31 09/10/2009/10/2025 CBC WITH DIFFE RENTI AL/PL ATELE T basos 0 % notest ab. Not Available [facility] ([facility]) [address], [place], [place], [address], 09/11/2025 06:23:31 10/22/09/10/2025 CBC WITH DIFFE RENTI AL/PL ATELE T neutrophils (absolute) 4.5 x10e3 /uL 1.4-7. 0 Not Available [facility] ([facility]) [address], [place], [place], [address], 09/11/2025 06:23:31 09/10/20 25 09/10/2025 CBC WITH DIFFE RENTI AL/PL ATELE T lymphs (absolute) 1.2 x10e3 /uL 0.7-3. 1 Not Available [facility] ([facility]) [address], [place], [place], [address], 09/11/2025 06:23:31 09/10/20 25 09/10/2025 CBC WITH DIFFE RENTI AL/PL ATELE T monocytes(ab solute) 0.5 x10e3 /uL 0.1-0. 9 Not Available [facility] ([facility]) [address], [place], [place], [address], 09/11/2025 06:23:31 09/10/20 25 09/10/2025 CBC WITH DIFFE RENTI AL/PL ATELE T eos (absolute) 0.1 x10e3 /uL 0.0-0. 4 Not Available [facility] ([facility]) [address], [place], [place], [address], 09/11/2025 06:23:31 09/10/20 25 09/10/2025 CBC WITH DIFFE RENTI AL/PL ATELE T baso (absolute) 0.0 x10e3 /uL 0.0-0. 2 Not Available [facility] ([facility]) [address] [place], [address], 09/11/2025 06:23:31 09/10/20 25 09/10/2025 CBC WITH DIFFE RENTI AL/PL ATELE T immature granulocytes 0 % notest ab. Not Available [facility] ([facility]) [address] [place], [address], 09/11/2025 06:23:31 09/10/20 25 09/10/2025 CBC WITH DIFFE RENTI AL/PL ATELE T immature grans (abs) 0.0 x10e3 /uL 0.0-0. 1 Not Available [facility] ([facility]) [address], [place], [place], [address], 09/11/2025 06:23:31 10/14/20 25 10/14/2025 CT, chest , w/o contr ast No observ ation record ed. [facility] [address] [address], [place], [address], 10/21/2025 11:07:26 Result Notes None recorded. Problems Name Problem SNOMED Code Status Onset Date Resolution Date Notes Provider Name and Address Organization Details Recorded Time Essential hypertensio n 09675449 Active 2023 Azul Valente MD Attn: Whit lucas,[address] [place], [address], [place] [facility] 4 21:07:16 Hypothyroid ism 18765918 Active 2023 Azul Valente MD Attn: Whit lucas,[address] [place], [address], [place] [facility] 4 21:07:30 Gastroesoph ageal reflux disease 017828066 Active 2023 Azul Valente MD Attn: Whit lucas,[address] [place], [address], [place] [facility] 4 21:07:20 Hyperlipide edward 51907280 Active 2023 Azul Valente MD Attn: Whit lucas,[address] [place], [address], [place] [facility] 4 21:07:26 Chronic low back pain 917519465 Active 2023 Azul Valente MD Attn: Whit lucas,[address] [place], [address], [place] [facility] 4 21:07:10 Hyperparath yroidism 93901187 Active 2023 Azul Valente MD Attn: Selenegopal lucas,[address] [place], [address], [place] [facility] 4 15:17:48 Pain of bilateral knee joints 0085724730489 04 Active 2023 Azul Valente MD Attn: Whit lance,[address] [place], [address], [place] [facility] 4 15:17:49 Heart murmur 69302472 Active 2023 Azul Valente MD Attn: Whit lance,[address] [place], [address], [place] [facility] 4 15:17:51 Obesity 500545892 Active 2023 Azul Valente MD Attn: Whit lance,[address] [place], [address], [place] [facility] 4 15:17:53 Hyponatremi a 56646675 Active 2023 Azul Valente MD Attn: Whit lance,[address] [place], [address], [place] [facility] 4 15:18:16 Nodule of lung 790846305 Active 2024 Maribel Moe [place] null, [place] [facility] 5 09:56:42 Aortic valve stenosis 69584001 Active 2024 Azul Valente MD Attn: Whit lance,[address] [place], [address], [place] [facility] 5 22:51:01 History of pulmonary embolus 537166981 Active 2024 Azul Valente MD Attn: Whit lucas,[address] [place] [address], [address], [place] [facility] 5 20:53:27 Problem Notes None recorded. Procedures Surgical History Date Name Laterality Status Provider Name and Address Organization Details Recorded Time 08/24/20 colonoscopy completed Arelis Jeffers LPN [facility] 04/16/2024 11:44:02 Cholecystectomy completed Deepali Roper MA [facility] 01/26/2024 11:04:41 Gastric Bypass completed Deepali Roper MA [facility] 01/26/2024 11:04:55 Tubal Ligation completed Deepali Roper MA [facility] 01/26/2024 11:05:03 Imaging Results None recorded. Procedure Notes None recorded. Medical Equipment None Reported. Allergies Allergen ID Allergen Name Allergen Category Reaction Reaction Severity Criticality Documentation Date Start Date Code Code System Note Provider Name and Address Organization Details Recorded Time 422614 Product containin g penicilli n (product) medicatio n rash Not available Not available 01/26/2024 79815 8001 SNOMED ERICK Colunga, [facility] 4 10:54:06 180056 Substance with sulfonami de structure and antibacte rial mechanism of action (substanc e) medicatio n Not available Not available Not available 01/26/2024 64619 [facility] 10:54:19 821420 Adhesive agent (substanc e) environme nt,medica tion Not available Not available Not available 09/09/20252012 30580 0007 SNOMED unrec ogniz ed react ion (text : Unkno wn, code: [id number]) (from exter nal sourc e) Not Available [employer] - prod 5 11:29:17 963774 sulfasala zine medicatio n Not available Not available Not available 09/09/20252017 9524 RxNorm unrec ogniz ed react ion (text : Unkno wn, code: 42453 [id number]) (from exter nal sourc e) Not Available toni - [employer] - prod 5 11:29:17 Medications Name Sig Start Date Stop Date Status Note LastModified by Organization Details LastModified Time buspirone 5 mg tablet TAKE 1 TABLET BY MOUTH TWICE A DAY 2024 active Not Available Not Available Not Avai lable atorvasta tin 10 mg tablet TAKE 1 TABLET BY MOUTH EVERY DAY active Not Available Not Available No t Available amlodipin e 5 mg tablet TAKE 1 TABLET BY MOUTH EVERY DAY active Not Available Not Available No t Available allopurin ol 100 mg tablet TAKE 1 TABLET BY MOUTH EVERY DAY active Not Available Not Available No t Available tramadol 50 mg tablet TAKE 1 TABLET BY MOUTH TWICE A DAY NEEDED AT LEAST 4 HOURS APART FROM TRAMADOL ER active Not Available Not Available No t Available triamtere ne 37.5 mg-hydroc hlorothia zide 25 mg capsule TAKE 1 CAPSULE DAILY active Not Available Not Available No t Available levothyro xine 75 mcg tablet TAKE 1 TABLET BY MOUTH EVERY DAY active Not Available Not Available No t Available famotidin e 20 mg tablet TAKE 1 TABLET TWICE A DAY active Not Available Not Available No t Available tamsulosi n 0.4 mg capsule TAKE 1 CAPSULE BY MOUTH EVERY DAY 01/22 completed Not Available Not Available Not Available meclizine 25 mg tablet TAKE 1 TABLET 3 TIMES A DAYAS NEEDED FOR DIZZINES S active Not Available Not Available No t [...] HOURS BEFORE CRUISE. CHANGE EVERY 72 HOURS 03/26 completed Not Available Not Available Not Available methylpre dnisolone 4 mg tablets in a dose pack TAKE 6 TABLETS ON DAY 1 DIRECTED ON PACKAGE AND DECREASE BY 1 TAB EACH DAY FOR A TOTAL OF 6 DAYS 09/25 completed Not Available Not Available Not Available ondansetr on 4 mg disintegr ating tablet PLACE 1 TABLET ON THE TONGUE AND ALLOW TO DISSOLVE EVERY 8 HOURS NEEDED FOR NAUSEA OR VOMITING ; (THIS WILL REPLACE PREVIOUS PRESCRIP TION FOR TABLETS) . active Not Available Not Available No t Available levothyro xine 05/22 completed 75 mcg daily Duplicat e Not Available Not Available Not Available betahisti ne (bulk) 8mg by mouth 4 times daily active Not Available Not Available No t Available tramadol ER 200 mg tablet,ex tended release 24 hr TAKE 1 TABLET BY MOUTH EVERY DAY *09/14* active Not Available Not Available No t Available Eliquis 5 mg tablet TAKE 1 TABLET BY MOUTH TWICE A DAY active Not Available Not Available No t Available Vitals Date Recorded Body height Body mass index (BMI) Body weight Heart rate Oxygen saturation Systolic And Diastolic Provider Name and Address Organization Details Last Updated DateTime 165.1 cm 32.1 kg/m2 44446.3 3 g 80 /min 96 % 136/66 mm[Hg] Renate Flynn MA [facility] 10:15:48 Social History Question Answer Notes LastModified by Organizat ion Details LastModified Time Tobacco Smoking Status [facility] 01/26/2024 11:04:24 Do You Have An Advance Directive? Yes Information not available 05/22/2024 Are You Blind Or Do You Have [...] Date Of Your Most Recent Tobacco Screening? 09/10/2025 [email or web address] Information not available 09/10/2025 What Is Your Relationship Status? Information not available 05/22/2024 Do You Use Your Seat Belt Or Car Seat Routinely? Yes Information not available 05/22/2024 Do You Have Smoke And Carbon Monoxide Detectors In Your Home? Yes Information not available 05/22/2024 Do You Use Sunscreen Routinely? Yes Information not available 05/22/2024 Has Tobacco Cessation Counseling Been Provided? No Information not available 01/26/2024 Sex: Female Functional Status Question Answer Note LastModified by Organizat ion Details LastModified Time Do you use any illicit or recreational drugs? No Information not available 01/26/2024 Do you or have you ever used any other forms of tobacco or nicotine? No Information not available 01/26/2024 What is your level of alcohol consumption? Occasional Information not available 01/26/2024 Are you currently employed? No Information not available 05/22/2024 Are you able to care for yourself independently? Yes Information not available 05/22/2024 What is your exercise level? None Information not available 05/22/2024 Mental Status None recorded. Family History Relationship Description Onset Age of this Age Resolved Age Notes LastModified by Organization Details LastModified Time Mother Malignant neoplasm of breast [email or web address] Not available 2023 11:02:41 Mother Malignant neoplasm of colon [email or web address] Not available 2023 11:03:05 [...] [facility] 09/25/2024 14:25:59 zoster recombinant 8 completed [place] [facility] 09/25/2024 14:25:59 zoster recombinant 8 completed [place] [facility] 09/25/2024 14:25:59 zoster recombinant 8 completed [place] [facility] 09/25/2024 14:25:59 Influenza, high-dose, quadrivalent, PF 2 completed Maribel [place] [facility] 09/25/2024 14:25:59 Influenza, high-dose, quadrivalent, PF 1 completed [place] [facility] 09/25/2024 14:25:59 Influenza, adjuvanted, quadrivalent, PF 3 completed [place] [facility] 09/25/2024 14:25:59 COVID-19, mRNA, LNP-S, PF, 100 mcg/0.5mL dose or 50 mcg/0.25mL dose 1 [place] [facility] 09/25/2024 14:25:59 COVID-19, mRNA, LNP-S, PF, 100 mcg/0.5mL dose or 50 mcg/0.25mL dose 1 completed [place] [facility] 09/25/2024 14:25:59 COVID-19, mRNA, LNP-S, PF, 100 mcg/0.5mL dose or 50 mcg/0.25mL dose 2 completed [place] [facility] 09/25/2024 14:25:59 COVID-19, mRNA, LNP-S, PF, 100 mcg/0.5mL dose or 50 mcg/0.25mL dose 1 completed [place] [facility] 09/25/2024 14:25:59 COVID-19, mRNA, [...] 09/25/2024 14:26:00 influenza, unspecified formulation 6 completed Mar[place] [facility] 09/25/2024 14:26:00 Novel [id number], all formulations 6 completed Mar[place] [facility] 09/25/2024 14:26:00 Influenza, high-dose, [...] Influenza, split virus, trivalent, preservative 3 completed [place] [facility] 09/25/2024 14:26:00 zoster recombinant 4 completed [place] [facility] 10/23/2024 17:53:16 zoster recombinant 4 completed [place] [facility] 10/23/2024 17:53:16 COVID-19, mRNA, LNP-S, PF, vanessa-sucrose, 30 mcg/0.3 mL 4 completed [place]ela[place] [facility] 11/22/2024 10:55:13 Influenza, high-dose, trivalent, PF 4 completed [place]ela[place] [facility] 11/22/2024 10:55:13 COVID-19, mRNA, LNP-S, PF, vanessa-sucrose, 30 mcg/0.3 mL 5 completed Not Available [facility] 09/10/2025 09:54:43 Influenza, high-dose, trivalent, PF 5 completed [facility] Available [facility] 09/10/2025 09:54:43 Tdap 5 completed Azul Valente MD Attn: [address] [place], [address], [facility] - [facility] 01/23/2025 22:48:19 Pneumococcal conjugate PCV20, polysaccharide [id number] conjugate, adjuvant, PF 5 completed Azul Valente MD Attn: [address] [place], [address], [place] [facility] 01/23/2025 22:48:19 Past Encounters Encounter ID Performer Location Encounter Start Date Encounter Closed Date Diagnosis/Indication Diagnosis SNOMED-CT Code Diagnosis ICD10 Code Diagnosis IMO Codes Diagnosis Note [id number] Azul Valente MD [facility] (Adult Med) [address] [place] [phone] 09/10/2025 09:54:03 09/10/2025 10:51:28 Obese class I 9328305414 19091 E66.811 E66.3 0251273606 32.1 Hypothyroidism 35881669 E03.9 Gastroesop hageal reflux disease 720048518 K21.9 Aortic valve stenosis 60 085788 I35.0 History of pulmonary embolus 732475665 Z86.[address] of chest abnormal 610 6366520 2203109 R93.89 919734 Essential hypertension 01026377 I10 Prediabetes 602181812 R7 3.03 506786 Health Concerns Section Related Observation LastModified by Organization Detai ls LastModified Time None Recorded Concern Status LastModified by Organization Details LastModified Time None Recorded Payers Encounter Date Sequence Insurance Name Policy Number Policy Garcia Covered Member ID Garcia Member ID Guarantor Name 09/10/2025 1 [employer] (MEDICARE REPLACEMENT/ ADVANTAGE - PPO) [id number] An Kate [id number] An Kate Notes Date Note Type Note Provider Name and Address Organization Details Recorded Time 09/10/2025 text/html Hypothyroid: Current no nausea no vomiting hyperlipidemia taking her medication follow low-fat diet chronic back pain still goes to pain management has been doing fine. Hypertension no headache no dizziness hyperlipidemia does try to follow a low-fat diet history of pulmonary embolus no chest pain or shortness for breath abnormal CT of the chest needs to be repeated zAul Valente MD Attn: Accounting[address] [facility], [place], [address], [place] - [facility] 09/13/2025 16:25:46 OBGyn Episode No OBEpisode recorded.
--- OUTSIDE RECORDS SUMMARY | 2025-11-19 15:54 | XMS_ITS | Clinical Summary ---
Author Organization [facility] [employer] Address [address] [place] [address] Care Team Providers Care Statement Clerks Manager Name Role Phone Yonis Valente MD Primary Care Provider [phone] Source Comments [facility] [employer],non-owned Affiliates and Associated Physician Practices is amultiple site organization consisting of ambulatory clinics and hospital sitesin [place], [place], [place] and [place]. This disclosure is being madepursuant to the Care Everywhere program and may not contain all information available regarding this patient. Last updated 18.[facility] [employer] Allergies Active Allergy Reactions Criticality Noted Date [...] on file Legal Sex Female 2:58 PM TECHNOLOGY TRAINER Gender Identity Not on file Sexual Orientation [...] 77.1 kg (170 lb) 12/11/2017 11:55 AM TECHNOLOGY TRAINER Height 167.6 cm (5' 6) 12/11/2017 11:55 AM TECHNOLOGY TRAINER Body Mass Index 27.44 12/11/2017 11:55 AM TECHNOLOGY TRAINER Plan of Treatment Health Maintenance Due Date [...] topic Insurance MANAGED MEDICARE ADV Care Teams Statement Clerks Manager Relationship Specialty Start Date End Date Yonis Valente MD PCP - General Internal Medicine 11/15/17
--- OUTSIDE RECORDS SUMMARY | 2025-11-19 15:54 | XMS_ITS | Encounter Summary ---
Author Organization [facility] Address 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
--- OUTSIDE RECORDS SUMMARY | 2025-11-19 15:54 | XMS_ITS | Data Portability ---
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 Name Role Phone AZUL VALENTE Primary Care Provider Assessment Encounter Date Assessment Date Assessment LastModified by Organization Details LastModified Time 10/23/2024 10/23/2024 we will continue current therapy there is no change in medications cardiology to evaluate her aortic valve follow up with me in 3 months [email or web address] Not available 10/27/2024 12:10:22 01/22/2025 01/22/2025 continue current therapy healthy lifestyle care instructions noncontrast CT chest for lung nodule other medicines we will continue coccal vaccination and tetanus Tdap today follows with urology for kidney lesion see me in 3 months [email or web address] Not available 01/23/2025 22:52:32 03/26/2025 03/26/2025 Patient is on Eliquis she will get a stat CT head stat maxillofacial CT she has no tenderness and full range of motion of her cervical spine therefore we will not image that at this time she will let us know in a few days how she is doing further recommendations pending results of the CAT scan if that is negative then she will keep her regular appointment Not available 03/26/2025 13:06:43 04/23/2025 04/23/2025 Continue current therapy healthy lifestyle care instructions follow up with me 4 months [email or web address] Not available 05/24/2025 20:54:05 09/10/2025 09/10/[address] chest to follow up on nodule CBC CMP lipid A1c we will go ahead make cardiology referral for the aortic valvular pathology and see me in 4 months [email or web address] Not available 09/13/2025 16:25:06 Plan of Treatment Reminders Order Date Submit Date Provider Last Modified By Organization Details Last Modified Time Details Appointments ANY 15 2025 09:15A Shana Valente MD Not available Not available Not available Lab HbA1c (hemoglob in A1c), blood 2024 [facility], [address] [facility], [address], [place], [address], 09/11/2025 06:23:31 CMP, serum or plasma 2024 [facility], [address] [place] [address], [address], [place], [address], 09/11/2025 06:23:30 CBC w/ auto diff 2024 [facility], [address] [place] [address], [address], [place], [address], 09/11/2025 06:23:31 lipid panel, serum 2024 [facility], [address] [place] [address], [address], [place], [address], 09/11/2025 06:23:30 Referral cardiolog ist referral 2023 024 [facility], [address], [place], [address], 12/16/2024 14:41:50 Procedures None recorded. Surgeries None recorded. Imaging CT, chest, w/o contrast 2024 [facility] ([facility]), [address], [place], [address], 10/24/2025 15:18:43 US, echocardi ogram 2024 025 [email or web address], [address] [facility] [address], [place], [address], 09/15/2025 11:24:56 CT, head, w/o contrast 2024 025 [facility] ([facility]), [address] [place], [address], 03/27/2025 11:11:10 CT, maxillofa cial, w/o contrast 2024 025 [facility] ([facility]), [address] [place], [address], 03/26/2025 14:38:07 CT, chest, w/o contrast 2024 025 [facility] ([facility]), [address] [place] [address], [address], 10/14/2025 17:21:51 Medication Orders famotidin e 20 mg tablet 2024 025 [email or web address] [facility], [facility], [place], [address], 04/23/2025 17:22:19 Eliquis 5 mg tablet 2024 025 [email or web address] [facility] [address] [address] [facility], [address] [place], [address], 04/23/2025 17:22:19 Eliquis 5 mg tablet 2023 024 [facility][id number], [address] , [place], [address], 10/23/2024 18:23:48 Patient TargetsNo targets recorded. Patient Instructions Encounter Date Encounter Id Patient Instructions Last Modified By Organization Details Last Modified Time 01/22/2025 [id number] A healthy lifestyle: care instructions Not available 01/22/2025 10:48:03 03/26/2025 [id number] A healthy lifestyle: care instructions [email or web address] Not available 03/26/2025 13:08:03 04/23/2025 [id number] A healthy lifestyle: care instructions [email or web address] Not available 04/23/2025 17:22:19 09/10/2025 [id number] A healthy lifestyle: care instructions [email or web address] Not available 09/10/2025 11:36:09 Reason for Referral Vegetable Tester Referral for Ao rtic valve stenosis Referring Physician: Azul Valente, Internal Medicine, Encounter Date: 10/23/2024 Results Created Date Observation Date Name Description Value Unit Range Abnormal Flag Note LastModifiedBy Organization Detail LastModifiedTime 09/10/2009/11/2025 LIPID PANEL cholesterol, total 163 mg/dL 100-19 9 Not Available [facility] ([facility]) [address] [place], [address], 09/11/2025 06:23:30 09/10/2009/11/2025 LIPID PANEL triglyceride s 102 mg/dL 0-149 Not Available [facility] ([facility]) [address] [place], [address], 09/11/2025 06:23:30 09/10/2009/11/2025 LIPID PANEL HDL cholesterol 67 mg/dL >39 Not Available [facility]) [address] [place], [address], 09/11/2025 06:23:30 09/10/2009/11/2025 LIPID PANEL VLDL cholesterol cassidy 18 mg/dL 5-40 Not Available [facility] ([facility]) [address] [place], [address], 09/11/2025 06:23:30 09/10/2009/11/2025 LIPID PANEL LDL chol calc ([facility]) 78 mg/dL 0-99 Not Available [facility] ([facility]) [address] [place], [address], 09/11/2025 06:23:30 09/10/20 25 09/10/2025 COMP. METAB OLIC PANEL (14) interpretati on: [...] renal failu re. Addit ional infor gaurav leblanc may be found at [email or web address]. Not Available [facility] ([facility]) [address] [place], [address], 09/11/2025 06:23:30 09/10/20 25 09/11/2025 COMP. METAB OLIC PANEL (14) glucose 87 mg/dL 70-99 Not Available [facility] ([facility]) [address] [place], [address], 09/11/2025 06:23:30 09/10/20 25 09/11/2025 COMP. METAB OLIC PANEL (14) BUN 19 mg/dL 8-27 Not Available [facility] ([facility]) [address] [place], [address], 09/11/2025 06:23:30 09/10/20 25 09/11/2025 COMP. METAB OLIC PANEL (14) creatinine 1.18 mg/dL 0.57-1 .00 above high normal Not Available [facility] ([facility]) [address] [place], [address], 09/11/2025 06:23:30 09/10/20 25 09/11/2025 COMP. METAB OLIC PANEL (14) eGFR 46 mL/mi n/1.7 3 >59 below low normal Not Available [facility] ([facility]) [address] [facility] [place], [address], 09/11/2025 06:23:30 09/10/20 25 09/11/2025 COMP. METAB OLIC PANEL (14) BUN/creatini ne ratio 16 12-28 Not Available [facility] ([facility]) [address] [facility] [place], [address], 09/11/2025 06:23:30 09/10/20 25 09/11/2025 COMP. METAB OLIC PANEL (14) sodium 139 mmol/ L 134-14 4 Not Available [facility] ([facility]) [address] [facility] [place], [address], 09/11/2025 06:23:30 09/10/20 25 09/11/2025 COMP. METAB OLIC PANEL (14) potassium 4.7 mmol/ L 3.5-5. 2 Not Available [facility] ([facility]) [address] [facility] [place], [address], 09/11/2025 06:23:30 09/10/20 25 09/11/2025 COMP. METAB OLIC PANEL (14) chloride 103 mmol/ L 96-106 Not Available [facility] ([facility]) [address] [facility] [place], [address], 09/11/2025 06:23:30 09/10/20 25 09/11/2025 COMP. METAB OLIC PANEL (14) carbon dioxide, total 24 mmol/ L 20-29 Not Available [facility] ([facility]) [address] [facility] [place], [address], 09/11/2025 06:23:30 09/10/20 25 09/11/2025 COMP. METAB OLIC PANEL (14) calcium 9.5 mg/dL 8.7-10 .3 Not Available [facility] ([facility]) [address] [place], [address], 09/11/2025 06:23:30 09/10/20 25 09/11/2025 COMP. METAB OLIC PANEL (14) protein, total 6.3 g/dL 6.0-8. 5 Not Available [facility] ([facility]) [address] [facility] [place], [address], 09/11/2025 06:23:30 09/10/20 25 09/11/2025 COMP. METAB OLIC PANEL (14) albumin 4.0 g/dL 3.7-4. 7 Not Available [facility] ([facility]) [address] [facility] [place], [address], 09/11/2025 06:23:30 09/10/20 25 09/11/2025 COMP. METAB OLIC PANEL (14) globulin, total 2.3 g/dL 1.5-4. 5 Not Available [facility] ([facility]) [address] [facility] [place], [address], 09/11/2025 06:23:30 09/10/2009/11/2025 COMP. METAB OLIC PANEL (14) bilirubin, total 0.7 mg/dL 0.0-1. 2 Not Available [facility] ([facility]) [address] [place], [address], 09/11/2025 06:23:30 09/10/2009/11/2025 COMP. METAB OLIC PANEL (14) alkaline phosphatase 110 IU/L 48-129 Not Available [facility] ([facility]) [address] [facility] [place], [address], 09/11/2025 06:23:30 09/10/20 25 09/11/2025 COMP. METAB OLIC PANEL (14) AST (SGOT) 16 IU/L 0-40 Not Available [facility] ([facility]) [address] [place], [address], 09/11/2025 06:23:30 09/10/20 25 09/11/2025 COMP. METAB OLIC PANEL (14) ALT (SGPT) 9 IU/L 0-32 Not Available [facility] ([facility]) [address] [facility], [place], [address], 09/11/2025 06:23:30 09/10/20 25 09/10/2025 HEMOG LOBIN A1C hemoglobin A1C 5.3 % 4.8-5. 6 Predi abete s: 5.7 - 6.4 Diabe ximena: >6.4 Glyce anirudh contr ol for adult s with diabe ximena: <7.0 Not Available [facility] ([facility]) [address] [facility], [place], [address], 09/11/2025 06:23:31 09/10/20 25 09/10/2025 CBC WITH DIFFE RENTI AL/PL ATELE T WBC 6.4 x10e3 /uL 3.4-10 .8 Not Available [facility] ([facility]) [address] [facility], [place], [address], 09/11/2025 06:23:31 09/10/20 25 09/10/2025 CBC WITH DIFFE RENTI AL/PL ATELE T RBC 3.90 x10e6 /uL 3.77-5 .28 Not Available [facility] ([facility]) [address] [facility], [place], [address], 09/11/2025 06:23:31 09/10/20 25 09/10/2025 CBC WITH DIFFE RENTI AL/PL ATELE T hemoglobin 12.3 g/dL 11.1-1 5.9 Not Available [facility] ([facility]) [address] [place], [address], 09/11/2025 06:23:31 09/10/20 25 09/10/2025 CBC WITH DIFFE RENTI AL/PL ATELE T hematocrit 37.7 % 34.0-4 6.6 Not Available [facility] ([facility]) [address] [facility], [place], [address], 09/11/2025 06:23:31 09/10/2009/10/2025 CBC WITH DIFFE RENTI AL/PL ATELE T MCV 97 fL 79-97 Not Available [facility] ([facility]) [address] [facility], [place], [address], 09/11/2025 06:23:31 09/10/2009/10/2025 CBC WITH DIFFE RENTI AL/PL ATELE T MCH 31.5 pg 26.6-3 3.0 Not Available [facility] ([facility]) [address] [facility], [place], [address], 09/11/2025 06:23:31 09/10/20 25 09/10/2025 CBC WITH DIFFE RENTI AL/PL ATELE T MCHC 32.6 g/dL 31.5-3 5.7 Not Available [facility] ([facility]) [address] [facility], [place], [address], 09/11/2025 06:23:31 09/10/2009/10/2025 CBC WITH DIFFE RENTI AL/PL ATELE T RDW 13.5 % 11.7-1 5.4 Not Available [facility] ([facility]) [address] [facility], [place], [address], 09/11/2025 06:23:31 09/10/2009/10/2025 CBC WITH DIFFE RENTI AL/PL ATELE T platelets 392 x10e3 /uL 150-45 0 Not Available [facility] ([facility]) [address] [facility], [place], [address], 09/11/2025 06:23:31 09/10/20 25 09/10/2025 CBC WITH DIFFE RENTI AL/PL ATELE T neutrophils 72 % notest ab. Not Available [facility] ([facility]) [address] [facility], [place], [address], 09/11/2025 06:23:31 09/10/2009/10/2025 CBC WITH DIFFE RENTI AL/PL ATELE T lymphs 19 % notest ab. Not Available [facility] ([facility]) [address] [facility], [place], [address], 09/11/2025 06:23:31 09/10/20 25 09/10/2025 CBC WITH DIFFE RENTI AL/PL ATELE T monocytes 8 % notest ab. Not Available [facility] ([facility]) [address] [facility], [place], [address], 09/11/2025 06:23:31 09/10/20 25 09/10/2025 CBC WITH DIFFE RENTI AL/PL ATELE T eos 1 % notest ab. Not Available [facility] ([facility]) [address] [facility], [place], [address], 09/11/2025 06:23:31 09/10/2009/10/2025 CBC WITH DIFFE RENTI AL/PL ATELE T basos 0 % notest ab. Not Available [facility] ([facility]) [address] [facility], [place], [address], 09/11/2025 06:23:31 09/10/20 25 09/10/2025 CBC WITH DIFFE RENTI AL/PL ATELE T neutrophils (absolute) 4.5 x10e3 /uL 1.4-7. 0 Not Available [facility] ([facility]) [address] [facility], [place], [address], 09/11/2025 06:23:31 09/10/20 25 09/10/2025 CBC WITH DIFFE RENTI AL/PL ATELE T lymphs (absolute) 1.2 x10e3 /uL 0.7-3. 1 Not Available [facility] ([facility]) [address] [facility], [place], [address], 09/11/2025 06:23:31 09/10/20 25 09/10/2025 CBC WITH DIFFE RENTI AL/PL ATELE T monocytes(ab solute) 0.5 x10e3 /uL 0.1-0. 9 Not Available [facility] ([facility]) [address] [facility], [place], [address], 09/11/2025 06:23:31 09/10/20 25 09/10/2025 CBC WITH DIFFE RENTI AL/PL ATELE T eos (absolute) 0.1 x10e3 /uL 0.0-0. 4 Not Available [facility] ([facility]) [address] [facility], [place], [address], 09/11/2025 06:23:31 09/10/20 25 09/10/2025 CBC WITH DIFFE RENTI AL/PL ATELE T baso (absolute) 0.0 x10e3 /uL 0.0-0. 2 Not Available [facility] ([facility]) [address] [facility], [place], [address], 09/11/2025 06:23:31 09/10/20 25 09/10/2025 CBC WITH DIFFE RENTI AL/PL ATELE T immature granulocytes 0 % notest ab. Not Available [facility] ([facility]) [address] [facility], [place], [address], 09/11/2025 06:23:31 09/10/20 25 09/10/2025 CBC WITH DIFFE RENTI AL/PL ATELE T immature grans (abs) 0.0 x10e3 /uL 0.0-0. 1 Not Available [facility] ([facility]) [address] [facility], [place], [address], 09/11/2025 06:23:31 10/28/20 24 10/28/2024 CT, abdom en, w/wo contr ast No observ ation record ed. [facility] [address], [place], [address], 10/29/2024 09:54:40 11/22/19 25 07/19/2021 DEXA No observ ation record ed. [email or web address] Not Available 2024 11:03:02 02/06/20 25 02/04/2025 CT, chest , w/o contr ast No observ ation record ed. [address], [place], [address], 02/05/2025 16:47:47 02/06/20 25 02/04/2025 CT, chest , w/o contr ast No observ ation record ed. [address], [place], [address], 02/05/2025 16:47:47 03/26/20 25 03/26/2025 CT, maxil lofac ial, w/o contr ast No observ ation record ed. [facility] [address] [place], [address], 03/28/2025 11:35:56 03/26/20 25 03/26/2025 CT, head, w/o contr ast No observ ation record ed. [facility] ([facility]) [address] [place], [address], 03/28/2025 12:24:11 03/27/20 25 03/26/2025 CT, head, w/o contr ast No observ ation record ed. [facility] [address] [place], [address], 03/28/2025 11:35:56 04/24/20 25 04/24/2025 XR, cervi cassidy spine , 2 or 3 view No observ ation record ed. [facility] [address], [place], [address], 04/25/2025 09:07:31 07/06/05/2025 XR, knee No observ ation record ed. [email or web address] [facility] [address], [place], [address], 06/16/2025 23:02:18 10/14/20 25 10/14/2025 CT, chest , w/o contr ast No observ ation record ed. [facility] [address], [place], [address], 10/21/2025 11:07:26 Result Notes None recorded. Problems Name Problem SNOMED Code Status Onset Date Resolution Date Notes Provider Name and Address Organization Details Recorded Time Essential hypertensio n 07015328 Active 2023 Azul Valente MD Attn: Whit lucas,[address] [place], [address], [place] [facility] 4 21:07:16 Hypothyroid ism 26354512 Active 2023 Azul Valente MD Attn: Whit lucas,[address] [place], [address], [place] [facility] 4 21:07:30 Gastroesoph ageal reflux disease 337795439 Active 2023 Azul Valente MD Attn: Whit lucas,[address] [place], [address], [place] [facility] 4 21:07:20 Hyperlipide edward 60790532 Active 2023 Azul Valente MD Attn: Whit lucas,[address] [place], [address], [place] [facility] 4 21:07:26 Chronic low back pain 161694524 Active 2023 Azul Valente MD Attn: Whit lucas,[address] [place], [address], [place] [facility] 4 21:07:10 Hyperparath yroidism 16025634 Active 2023 Azul Valente MD Attn: Whit lucas,[address] [facility], [place], [address], [place] [facility] 4 15:17:48 Pain of bilateral knee joints 3110141712488 04 Active 2023 Azul Valente MD Attn: Selenegopal lucas,[address] [facility], [place], [address], [place] [facility] 4 15:17:49 Heart murmur 83419157 Active 2023 Azul Valente MD Attn: Whit lance,[address] [facility], [place], [address], [place] [facility] 4 15:17:51 Obesity 528838067 Active 2023 Azul Valente MD Attn: Whit lance,[address] [facility], [place], [address], [facility] - [facility] 4 15:17:53 Hyponatremi a 88790773 Active 2023 Azul Valente MD Attn: Whit lance,[address] [facility], [place], [address], [facility] - [facility] 4 15:18:16 Nodule of lung 088632837 Active 2024 Maribel Moe MA [facility], [place] - [facility] 5 09:56:42 Aortic valve stenosis 33454985 Active 2024 Azul Valente MD Attn: Whit lance,[address] [facility], [place], [address], [place] [facility] 5 22:51:01 History of pulmonary embolus 461517274 Active 2024 Azul Valente MD Attn: Selenegopal lucas,[address] [place], [address], [facility] - [facility] 5 20:53:27 Problem Notes None recorded. Procedures Surgical History Date Name Laterality Status Provider Name and Address Organization Details Recorded Time 08/24/20 21 colonoscopy completed Arelis Jeffers LPN [facility] 04/16/2024 11:44:02 Cholecystectomy completed Deepalimaddie Roper MA [facility] 01/26/2024 11:04:41 Gastric Bypass completed Deepali Roper MA [facility] 01/26/2024 11:04:55 Tubal Ligation completed Deepali Roper MA [facility] 01/26/2024 11:05:03 Imaging Results None recorded. Procedure Notes None recorded. Medical Equipment None Reported. Allergies Allergen ID Allergen Name Allergen Category Reaction Reaction Severity Criticality Documentation Date Start Date Code Code System Note Provider Name and Address Organization Details Recorded Time 262271 Product containin g penicilli n (product) medicatio n rash Not available Not available 01/26/2024 03134 8001 SNOMED ERICK Colung[place], [facility] 4 10:54:06 349228 Substance with sulfonami de structure and antibacte rial mechanism of action (substanc e) medicatio n Not available Not available Not available 01/26/2024 50778 8003 SNOMED ERICK Colung[place], [facility] 4 10:54:19 914060 Adhesive agent (substanc e) environme nt,medica tion Not available Not available Not available 09/09/20252012 94203 0007 SNOMED unrec ogniz ed react ion (text : Unkno wn, code: 86582 [id number]) (from exter nal sourc e) Not Available toni - External Data Service - prod 11:29:17 20231225 sulfasala zine medicatio n Not available Not available Not available 09/09/20252017 9524 RxNorm unrec ogniz ed react ion (text : Unkno wn, code: 21738 5006) (from exter nal sourc e) Not Available toni - External Data Service - prod 11:29:17 Medications Name Sig Start Date Stop [...] Updated DateTime 5 165.1 cm 33.4 kg/m2 66026.9 9 g 82 /min 95 % 128/72 mm[Hg] Renate [facility] 5 09:26:22 Date Recorded Heart rate Oxygen saturation Heart rate Oxygen saturation Systolic And Diastolic Systolic And Diastolic Provider Name and Address Organization Details Last Updated DateTime 5 80 /min 97 % 72 /min 97 % 120/58 mm[Hg] 144/80 mm[Hg] Ingrid Polanco MA [facility] 5 12:27:23 Date Recorded Body height Body mass index (BMI) Body weight Heart rate Oxygen saturation Systolic And Diastolic Provider Name and Address Organization Details Last Updated DateTime 5 165.1 cm 33.3 kg/m2 74005.4 7 g 77 /min 95 % 116/72 mm[Hg] [facility] 5 12:16:06 Date Recorded Body height Body mass index (BMI) Body weight Heart rate Oxygen saturation Systolic And Diastolic Provider Name and Address Organization Details Last Updated DateTime 5 165.1 cm 32 kg/m2 43679.8 1 g 83 /min 95 % 158/78 mm[Hg] Renate [facility] 5 10:38:58 Date Recorded Body height Body mass index (BMI) Body weight Heart rate Oxygen saturation Systolic And Diastolic Provider Name and Address Organization Details Last Updated DateTime 5 165.1 cm 32.1 kg/m2 40074.3 3 g 80 /min 96 % 136/66 mm[Hg] [facility] 5 10:15:48 Date Recorded Body height Body mass index (BMI) Body weight Heart rate Oxygen saturation Systolic And Diastolic Provider Name and Address Organization Details Last Updated DateTime 4 165.1 cm 33 kg/m2 31817.3 7 g 71 /min 97 % 122/68 mm[Hg] Ingrid Polanco MA [place] [facility] 15:27:37 Social History Question Answer Notes LastModified by Organizat ion Details LastModified Time Tobacco Smoking Status Former Smoker ERICK [place], [place] - [facility] 01/26/2024 11:04:24 Do You Have An Advance [...] [place], [place] - [facility] 09/25/2024 14:26:00 Novel [id number], all formulations 6 completed Maribel Moe [place], [place] [facility] 09/25/2024 14:26:00 Influenza, high-dose, trivalent, PF 7 completed Maribel [place] [facility] 09/25/2024 14:26:00 Influenza, high-dose, trivalent, PF 8 completed Maribel [place] [facility] 09/25/2024 14:26:00 Influenza, high-dose, trivalent, PF 5 completed Maribel [place] [facility] 09/25/2024 14:26:00 Influenza, high-dose, trivalent, PF 7 completed Maribel [place] [facility] 09/25/2024 14:26:00 Influenza, high-dose, trivalent, PF 4 completed Maribel M[place] [facility] 09/25/2024 14:26:00 Influenza, split [...] 30 mcg/0.3 mL 5 completed Not Available [facility] 09/10/2025 09:54:43 Influenza, high-dose, trivalent, PF 5 completed Not Available [facility] 09/10/2025 09:54:43 Tdap 5 completed Azul Valente MD Attn: Accounting,[address] [facility], [place], [address], [facility] 01/23/2025 22:48:19 Pneumococcal conjugate PCV20, polysaccharide CCQ739 conjugate, adjuvant, PF 5 completed Azul Valente MD Attn: Accounting[address] [facility], [place], [address], [facility] 01/23/2025 22:48:19 Past Encounters Encounter ID Performer Location Encounter Start Date Encounter Closed Date Diagnosis/Indication Diagnosis SNOMED-CT Code Diagnosis ICD10 Code Diagnosis IMO Codes Diagnosis Note [id number] Azul Valente MD [facility] ([facility]ult Med) [address] [place] [id number] 01/26/2024 10:32:11 01/26/2024 12:02:32 Essential hypertension 94069925 I10 Hypothyroidism 57019125 E03.9 Gastroesop hageal reflux disease 141344340 K21.9 Hyperlipidemia 44004843 E78.5 Chronic low back pain 27 3857322 M54.50 [id number] Azul Valente MD [facility] ([facility]ult Med) [address] [place] [phone] 05/22/2024 11:25:42 05/22/2024 12:54:00 Essential hypertension 89104000 I10 Hyperlipidemia 08839603 E78.5 Hypothyroidism 99749986 E03.9 Hyperparathyroidism 6699 9008 E21.3 Pain of bi lateral knee joints 6405763034 80403 M25.561 M25.562 Heart murmur 26921922 R0 1.1 Obesity 313634779 E66.8 Hyponatremia 09027268 E8 7.1 [id number] Azul Valente MD [facility] (Adult Med) [address] [place] [id number] 09/25/2024 09:27:32 09/25/2024 10:18:58 History of pulmonary embolus 613875178 Z86.711 Hyperlipidemia 86774974 E78.5 Hypothyroidism 39186538 E03.9 Gastroesop hageal reflux disease 311325284 K21.9 Essential hypertension 59212982 I10 Renal mass 489891745 N28 .89 Nodule of lung 189238517 R91.1 [id number] Azul Valente MD [facility] (Adult Med) [address] [place] [phone] 0 10/23/2024 14:34:59 10/23/2024 16:56:07 Body mass index 30+ - obesity 985202162 Z68.33 Hyperlipidemia 27454031 E78.5 Hypothyroidism 59543026 E03.9 Essential hypertension 85472305 I10 Aortic valve stenosis 60 264678 I35.0 Renewal of prescription 450508167 Z76.0 History of pulmonary embolus 479012431 Z86.677 [id number] Azul Valente MD [facility] (Adult Med) [address] [place] [address] [phone] 0 01/22/2025 09:12:34 01/22/2025 09:58:33 Body mass index 30+ - obesity 378457658 Z68.33 Obesity 624368541 E66.9 Nodule of lung 359897688 R91.1 Administra tion of pneumococcal vaccine 98776752 Z23 Administra tion of diphtheria, pertussis, and tetanus vaccine 967084617 Z23 Hypothyroidism 66048091 E03.9 Gastroesop hageal reflux disease 699233525 K21.9 Hyperlipidemia 40205756 E78.5 Chronic low back pain 27 9405695 M54.50 Hyponatremia 39345313 E8 7.1 Renal mass 464051252 N28 .89 follows with Urology [id number] MD [facility] (Adult Med) [address] [place] [address] [phone] 0 03/26/2025 11:54:20 03/26/2025 12:55:31 Body mass index 30+ - obesity 715717998 Z68.33 [id number] Obese class I 9285990683 09766 E66.811 [id number] Fall 6068174 W19.XXXA 4053334 [id number] MD [facility] (Adult Med) [address] [place] [address] [phone] 04/23/2025 09:56:34 04/23/2025 10:59:29 Body mass index 30+ - obesity 131770787 Z68.32 336941 Obese class I 2953448531 42035 E66.811 2954128085 Renewal of prescription 985550674 Z76.0 Gastroesop hageal reflux disease 937949199 K21.9 Essential hypertension 42007279 I10 Hyperlipidemia 45594835 E78.5 Hypothyroidism 71250571 E03.9 History of pulmonary embolus 367113003 Z86.711 [id number] Azul Valente MD [facility] (Adult Med) [address] [place] [phone] 09/10/2025 09:54:03 09/10/2025 10:51:28 Obese class I 1926744004 95989 E66.811 E66.3 2483038758 32.1 Hypothyroidism 22765801 E03.9 Gastroesop hageal reflux disease 313732318 K21.9 Aortic valve stenosis 60 739677 I35.0 History of pulmonary embolus 523652572 Z86.[address] of chest abnormal 436 3084218 8964588 R93.89 783788 Essential hypertension 29553540 I10 Prediabetes 641432379 R7 3.03 [id number] Health Concerns Section Related Observation LastModified by Organization Detai ls LastModified Time None Recorded Concern Status LastModified by Organization Details LastModified Time None Recorded Advance Directives Directive Y: Payers Insurance Date Sequence Insurance Name Policy Number Policy Garcia Covered Member ID Garcia Member ID Guarantor Name 09/15/2025 1 [employer] (MEDICARE REPLACEMENT/ ADVANTAGE - PPO) [id number] An Kate [id number] An Kate Notes Date Note Type Note Provider Name and Address Organization Details Recorded Time 10/23/2024 text/html hypothyroid no heat or cold intolerance . aortic valve stenosis asymptomatic no chest pain no CHF no syncope. Hyperlipidemia she is taking her medicine trying to follow a low-fat diet. She fell and has a bump on her leg does not really hurt no injury otherwise. history of pulmonary embolus breathing is fine no hemoptysis. Her anxiety is improved. Azul Valente MD Attn: [employer],[address], [place], [address], [facility] 10/27/2024 12:10:42 01/22/2025 text/html history of PE stable lung lesion needs follow up hypothyroid no heat or cold intolerance energy fair GERD no nausea no vomiting gout taking allopurinol no flare-ups hypertension blood pressure is well controlled. Chronic back pain stable on medications history of hyponatremia asymptomatic at this time right lower extremity DVT stable moderate aortic stenosis asymptomatic Azul Valente MD Attn: [employer] [facility], [place], [address], [facility] 01/23/2025 22:52:51 03/26/2025 text/html Over the past 2 or 3 days she has had 2 falls 1 she was actually trying to cut grass and the push mower got away from her and she fell did not get knocked out but she scraped her face up was able to get up move about and had some facial pain but vision was fine did not hurt her neck. Second time they later she tripped because she had her foot got caught in a crack on the sidewalk she fell again face forward got her hands outstretched though did not have loss of consciousness did not have any cardiopulmonary or neurological complaints before either fall she has no neck pain she does have some pain across her face there is no headache or blurred vision she has some pain in her trapezius muscle on the right but she states she has had that for several years does not have any loss of function anywhere ambulates under her own power Renate Flynn MA null, [place] - [facility] 03/27/2025 13:00:20 04/23/2025 text/html Hypothyroid: Current no nausea no vomiting hyperlipidemia taking her medication follow low-fat diet chronic back pain still goes to pain management has been doing fine. Hypertension no headache no dizziness hyperlipidemia does try to follow a low-fat diet history of pulmonary embolus no chest pain or shortness for breath Azul Valente MD Attn: [employer] [facility], [place], [address], [facility] - [facility] 05/24/2025 20:54:34 09/10/2025 text/html Hypothyroid: Current no nausea no vomiting hyperlipidemia taking her medication follow low-fat diet chronic back pain still goes to pain management has been doing fine. Hypertension no headache no dizziness hyperlipidemia does try to follow a low-fat diet history of pulmonary embolus no chest pain or shortness for breath abnormal CT of the chest needs to be repeated Azul Valente MD Attn: [employer] [facility], [place], [address], [facility] - [facility] 09/13/2025 16:25:46 OBGyn Episode No OBEpisode recorded.
--- OUTSIDE RECORDS SUMMARY | 2025-11-19 15:54 | XMS_ITS | Data Portability ---
Author Organization [place] - [facility] [address], Main Office Address [address] [place] [address] Care Team Providers Care Paste Mixing Supervisor Name Role Phone AZUL VALENTE Primary Care Provider Assessment Encounter Date Assessment Date Assessment LastModified by Organization Details LastModified Time 07/19/2023 07/19/2023 Will continue current therapy and follow up with me in 4 months [email or web address] Not available 07/23/2023 16:37:21 11/08/2023 11/08/2023 Continue current therapy will follow-up me in 4 months Not available 11/08/2023 13:35:51 03/11/2024 03/11/2024 Assessment: Mild OSAHS, AHI = 9 Early REM onset Plan: The following were reviewed and explained to the patient: primary care/referral note [facility] home sleep study 01/19/17 AHI = 9 [facility] titration sleep study 02/01/17 sleep onset = [...] carrier. Patient will setup an appointment with [facility] for supplies and pressure adjustments. A major [...] further management. Follow-up: 1 year, February 2025 [facility] Not available 03/11/2024 10:40:11 03/12/2025 03/12/2025 Assessment: Mild OSAHS, AHI = 9 Early REM onset Plan: The following were reviewed and explained to the patient: [facility] home sleep study 01/19/17 AHI = 9 [facility] titration sleep study 02/01/17 sleep onset = 24 minutes, REM onset = 86 minutes, ResMed medium AirFit N10 nasal mask @ 8 cmH2O, PLMI = 1 PAP compliance downloaded and interpreted x 20 minutes. Data reviewed and explained to the patient. Average apnea/hypopnea index (AHI) is 1.3. Patient used PAP > 4 hours 80% of the time. PAP is set at 9 cmH2O. PAP will remain at 9 cmH2O. Keep EPR off. Keep ramp start at 4 cmH2O. Keep [...] carrier. Patient will setup an appointment with [facility] for supplies and pressure adjustments. A major [...] 50 mmHg Mod TR Mild LAVERN Hypertension COURTENY Educated the patient on sleep hygiene measures. [...] for further management. Follow-up: 1 year, February 2026 [email or web address] Not available 03/12/2025 09:55:57 Plan of Treatment Reminders Order Date Submit Date Provider Last Modified By Organization Details Last Modified Time Details Appointments Follow Up 2025 09:00A Shnaa Adamson MD Not available Not available Not available Lab CBC w/ auto diff [address] (Lab), [address] [place], [address], 07/19/2023 16:35:25 lipid panel, serum [address] (Lab), [address] [place], [address], 07/19/2023 16:35:25 CMP, serum or plasma [address] (Lab), [address] [place], [address], 07/19/2023 16:35:25 Referral None recorded . Procedures None recorded . Surgeries None recorded . Imaging None recorded . Medication Orders None recorded . Patient TargetsNo targets recorded. Patient InstructionsNo instructions recorded. Reason for Referral None Reported. Results Created Date Observation Date Name Description Value Unit Range Abnormal Flag Note LastModifiedBy Organization Detail LastModifiedTime 07/19/2007/19/2023 CBC/C OMPLE TE BLD COUNT W/DIF F white blood cells 7.2 x10'3 /uL 4.2-10 .8 Not Available [facility] (Lab) [address] [place], [address], 07/19/2023 11:26:45 07/19/2007/19/2023 CBC/C OMPLE TE BLD COUNT W/DIF F red blood cells 3.83 x10'6 /uL 3.80-5 .20 Not Available [facility] (Lab) [address] [place], [address], 07/19/2023 11:26:45 07/19/20 23 07/19/2023 CBC/C OMPLE TE BLD COUNT W/DIF F hemoglobin 12.0 g/dL 12.0-1 5.6 Not Available [facility] (Lab) [address] [place], [address], 07/19/2023 11:26:45 07/19/20 23 07/19/2023 CBC/C OMPLE TE BLD COUNT W/DIF F hematocrit 38.5 % 35.7-4 5.7 Not Available [facility] (Lab) [address] [place], [address], 07/19/2023 11:26:45 07/19/20 23 07/19/2023 CBC/C OMPLE TE BLD COUNT W/DIF F mean red cell volume 100.5 fL 82.0-9 9.0 high Not Available [facility] (Lab) [address] [place], [address], 07/19/2023 11:26:45 07/19/20 23 07/19/2023 CBC/C OMPLE TE BLD COUNT W/DIF F mean red cell hemoglobin 31.3 pg 27.0-3 3.0 Not Available [facility] (Lab) [address] [place], [address], 07/19/2023 11:26:45 07/19/20 23 07/19/2023 CBC/C OMPLE TE BLD COUNT W/DIF F mean RBC HGB concentratio n 31.2 g/dL 31.0-3 6.0 Not Available [facility] (Lab) [address] [place], [address], 07/19/2023 11:26:45 07/19/20 23 07/19/2023 CBC/C OMPLE TE BLD COUNT W/DIF F red cell distribution width 13.5 % 11.8-1 5.5 Not Available [facility] (Lab) [address] [place], [address], 07/19/2023 11:26:45 07/19/20 23 07/19/2023 CBC/C OMPLE TE BLD COUNT W/DIF F platelets 374 x10'3 /uL 150-40 0 Not Available [facility] (Lab) [address] [place], [address], 07/19/2023 11:26:45 07/19/20 23 07/19/2023 CBC/C OMPLE TE BLD COUNT W/DIF F mean platelet volume 9.5 fL 9.0-12 .4 Not Available [facility] (Lab) [address] [place], [address], 07/19/2023 11:26:45 07/19/20 23 07/19/2023 CBC/C OMPLE TE BLD COUNT W/DIF F neutrophils 59.6 % 39.0-7 2.0 Not Available [facility] (Lab) [address] [place], [address], 07/19/2023 11:26:45 07/19/20 23 07/19/2023 CBC/C OMPLE TE BLD COUNT W/DIF F lymphocytes 29.4 % 16.0-4 7.0 Not Available [facility] (Lab) [address] [place], [address], 07/19/2023 11:26:45 07/19/20 23 07/19/2023 CBC/C OMPLE TE BLD COUNT W/DIF F monocytes 7.5 % 5.0-12 .0 Not Available [facility] (Lab) [address] [place], [address], 07/19/2023 11:26:45 07/19/20 23 07/19/2023 CBC/C OMPLE TE BLD COUNT W/DIF F eosinophils 2.9 % 1.0-7. 0 Not Available [facility] (Lab) [address] [place], [address], 07/19/2023 11:26:45 07/19/20 23 07/19/2023 CBC/C OMPLE TE BLD COUNT W/DIF F basophils 0.3 % 0.0-2. 0 Not Available [facility] (Lab) [address] [place], [address], 07/19/2023 11:26:45 07/19/20 23 07/19/2023 CBC/C OMPLE TE BLD COUNT W/DIF F immature granulocytes 0.3 % 0.00-0 .50 Not Available [facility] (Lab) [address] [place], [address], 07/19/2023 11:26:45 07/19/20 23 07/19/2023 CBC/C OMPLE TE BLD COUNT W/DIF F neutrophils, absolute count 4.30 x10'3 /uL 1.5-8. 0 Not Available [facility] (Lab) [address] [place], [address], 07/19/2023 11:26:45 07/19/20 23 07/19/2023 CBC/C OMPLE TE BLD COUNT W/DIF F lymphocytes, absolute count 2.12 x10'3 /uL 1.07-3 .43 Not Available [facility] (Lab) [address] [place], [address], 07/19/2023 11:26:45 07/19/20 23 07/19/2023 CBC/C OMPLE TE BLD COUNT W/DIF F monocytes, absolute count 0.54 x10'3 /uL 0.29-0 .99 Not Available [facility] (Lab) [address] [place], [address], 07/19/2023 11:26:45 07/19/20 23 07/19/2023 CBC/C OMPLE TE BLD COUNT W/DIF F eosinophils, absolute count 0.21 x10'3 /uL 0.02-0 .53 Not Available [facility] (Lab) [address] [place], [address], 07/19/2023 11:26:45 07/19/20 23 07/19/2023 CBC/C OMPLE TE BLD COUNT W/DIF F basophils, absolute count 0.02 x10'3 /uL 0.01-0 .08 Not Available [facility] (Lab) [address] [place], [address], 07/19/2023 11:26:45 07/19/20 23 07/19/2023 CBC/C OMPLE TE BLD COUNT W/DIF F immature granulocytes ,absolute 0.02 x10'3 /uL 0.00-0 .05 Not Available [facility] (Lab) [address] [place], [address], 07/19/2023 11:26:45 07/19/20 23 07/19/2023 CBC/C OMPLE TE BLD COUNT W/DIF F nucleated red blood cells 0.0 % -0 Not Available [facility] (Lab) [address] [place], [address], 07/19/2023 11:26:45 07/19/20 23 07/19/2023 CBC/C OMPLE TE BLD COUNT W/DIF F NRBC# 0.00 x10'3 /uL Not Available [facility] (Lab) [address] [place], [address], 07/19/2023 11:26:45 07/19/20 23 07/19/2023 LIPID PANEL cholesterol 195 mg/dL 140-19 9 [facility] NSUS RECOM MENDA TION FOR SHELBI STERO L: ADULT CHILD LOW RISK: <200 <170 BORDE RLINE : <200- 239 ----- HIGH RISK: >240 >200 Not Available [facility] (Lab) [address] [place], [address], 07/19/2023 11:32:01 07/19/20 23 07/19/2023 LIPID PANEL triglyceride s 114 mg/dL 0-150 [facility] NSUS REPOR T RECOM MENDA TION FOR TRIGL YCERI QUYEN: ADULT CHILD LOW RISK: <150 ----- BODER LINE: 150-1 99 ----- HIGH RISK: >200 ----- Not Available [facility] (Lab) [address] [place], [address], 07/19/2023 11:32:01 07/19/20 23 07/19/2023 LIPID PANEL HDL cholesterol 73 mg/dL 40- Not Available [facility] (Lab) [address] [place], [address], 07/19/2023 11:32:01 07/19/20 23 07/19/2023 LIPID PANEL [...] WILL NOT BE REPOR DALIA. Not Available [facility] (Lab) [address] [place], [address], 07/19/2023 11:32:01 07/19/20 23 07/19/2023 COMPR EHENS ALTON METAB OLIC PANEL sodium 139 mmol/ L 137-14 5 Not Available [facility] (Lab) [address] [place], [address], 07/19/2023 11:32:08 07/19/20 23 07/19/2023 COMPR EHENS ALTON METAB OLIC PANEL potassium 4.0 mmol/ L 3.5-5. 1 Not Available [facility] (Lab) [address] [place], [address], 07/19/2023 11:32:08 07/19/20 23 07/19/2023 COMPR EHENS ALTON METAB OLIC PANEL chloride 102 mmol/ L 98-107 Not Available [facility] (Lab) [address] [place], [address], 07/19/2023 11:32:08 07/19/20 23 07/19/2023 COMPR EHENS ALTON METAB OLIC PANEL carbon dioxide 29 mmol/ L 22-30 Not Available [facility] (Lab) [address] [place], [address], 07/19/2023 11:32:08 07/19/20 23 07/19/2023 COMPR EHENS ALTON METAB OLIC PANEL anion gap 12.0 mmol/ L 14-22 low Not Available [facility] (Lab) [address] [place], [address], 07/19/2023 11:32:08 07/19/20 23 07/19/2023 COMPR EHENS ALTON METAB OLIC PANEL glucose 81 mg/dL 70-99 Not Available [facility] (Lab) [address] [place], [address], 07/19/2023 11:32:08 07/19/20 23 07/19/2023 COMPR EHENS ALTON METAB OLIC PANEL BUN 18 mg/dL 8-19 Not Available [facility] (Lab) [address] [place], [address], 07/19/2023 11:32:08 07/19/20 23 07/19/2023 COMPR EHENS ALTON METAB OLIC PANEL creatinine 1.19 mg/dL 0.66-1 .25 Not Available [facility] (Lab) [address] [place], [address], 07/19/2023 11:32:08 07/19/20 23 07/19/2023 COMPR EHENS ALTON METAB OLIC PANEL GFR 44 Refer ence Range : [place] ge GFR Healt hy Adult : >60 [...] or ethni c subgr oups, such as Hispa nics. Outsi de the valid ated ayse [...] calcu lator is avail able on the [facility] websi te: https :[email or web address] [email or web address].iman shen/sky de la garzaess mindaal s/kdo qi/gf r_cal culat or Not Available [facility] (Lab) [address] [place], [address], 07/19/2023 11:32:08 07/19/20 23 07/19/2023 COMPR EHENS ALTON METAB OLIC PANEL alkaline phosphatase 100 U/L 38-126 Not Available [facility] (Lab) [address] [place], [address], 07/19/2023 11:32:08 07/19/20 23 07/19/2023 COMPR EHENS ALTON METAB OLIC PANEL alanine aminotransfe rase 21 U/L 0-35 Not Available [facility] (Lab) [address] [place], [address], 07/19/2023 11:32:08 07/19/20 23 07/19/2023 COMPR EHENS ALTON METAB OLIC PANEL aspartate aminotransfe rase 29 U/L 15-37 Not Available [facility] (Lab) [address] [place], [address], 07/19/2023 11:32:08 07/19/20 23 07/19/2023 COMPR EHENS ALTON METAB OLIC PANEL bilirubin, total 0.60 mg/dL 0.20-1 .30 Not Available [facility] (Lab) [address] [place], [address], 07/19/2023 11:32:08 07/19/20 23 07/19/2023 COMPR EHENS ALTON METAB OLIC PANEL calcium 9.3 mg/dL 8.4-10 .2 Not Available [facility] (Lab) [address] [place], [address], 07/19/2023 11:32:08 07/19/20 23 07/19/2023 COMPR EHENS ALTON METAB OLIC PANEL total protein 6.9 g/dL 6.3-8. 2 Not Available [facility] (Lab) [address] [place], [address], 07/19/2023 11:32:08 07/19/20 23 07/19/2023 COMPR EHENS ALTON METAB OLIC PANEL albumin 4.1 g/dL 3.0-4. 4 Not Available [facility] (Lab) [address] [place], [address], 07/19/2023 11:32:08 07/19/20 23 07/19/2023 COMPR EHENS ALTON METAB OLIC PANEL globulin 2.8 g/dL 2.6-4. 2 Not Available [facility] (Lab) [address] [place], [address], 07/19/2023 11:32:08 08/3007/19/2023 COMPR EHENS ALTON METAB OLIC PANEL A/G ratio 1.5 ratio 1.0-2. 0 Not Available [facility] (Lab) [address] [facility] [place], [address], 07/19/2023 11:32:08 03/08/20 24 01/19/2017 home sleep study No observ ation record ed. [email or web address] Not Available 2023 10:32:30 03/08/20 24 02/01/2017 polys omnog santiago, titra tion study No observ ation record ed. BARCODE Not Available 2023 14:19:33 03/26/2003/26/2025 CT, head, w/wo contr ast [facility] [address] [facility] [place] [address] Patien t Name: TONIA KNIGHT IA Access ion #: [id number] Sex: F : 1944 2 Dictat ed By: Remigio Diaz Attend ing Physic liyah: ALFRED VALENTE Orderi ng Physic liyah: ALFRED VALENTE Exam Date: 2024 12:10 PM Exam Name: CT HEAD WO Admitt ing Diagno sis(es ): EXAM: CT HEAD WO HISTOR Y: Fall, initia l encoun ter COMPAR ANNIE: CT HEAD WO on DOS: 03/25/22 TECHNI QUE: Axial images of the head were obtain ed and reform atted in sewell l and sagitt al planes . [facility] perfor med using dose modula tion techni ques as approp riate to a perfor med exam includ ing the follow ing: Automa dalia exposu re contro l was utiliz ed; adjust ment of the MA and/or KV accord ing to patien t size; and use of iterat alton recons tructi on techni que. CT Dose: CTDI volume is 46 mGy. Dose-l ength produc t is 11 L2 mGy*cm FINDIN GS: There is no eviden ce of acute intrac ranial hemorr maria guadalupe, mass, mass effect midlin e shift. There is no hydroc ephalu s or extra- axial fluid collec tion. Steinberg-w nick matter differ entiat ion appear s mainta ined. The visual ized parana carolee sinuse s and mastoi d air cells are clear. The calvar ium is intact . IMPRES CORIN: 1. No acute intrac ranial proces s. HS:Y Page 1 [facility] [address] [place] [address] [phone] Patien t Name: TONIA KNIGHT IA Access ion #: [id number] Sex: F : 1944 2 Dictat ed By: Remigio Diaz Attend ing Physic liyah: YOSELYN MALDONADO Physic liyah: ALFRED VALENTE Exam Date: 2024 12:10 PM Exam Name: CT HEAD WO Admitt ing Diagno sis(es ): Electr onical ly Signed by: Remigio Diaz at 2024 12:43: 05 PM Page 2 [email or web address] [facility] (Imaging) [address] [place], [address], 09/04/2025 11:13:12 03/26/20 25 03/26/2025 CT, maxil lofac ial, w/o contr ast [facility] [address] 8-3000 Patien t Name: TONIA KNIGHT IA Access ion #: [id number] Sex: F : 1944 2 Dictat ed By: Barber Sinclair Attend ing Physic liyah: ALFRED VALENTE Physic liyah: ALFRED VALENTE Exam Date: 2024 12:13 PM Exam Name: CT MAXILL OFACIA L WO Admitt ing Diagno sis(es ): HISTOR Y: Trauma , pain TECHNI QUE: Nonenh anced axial images throug h the facial bones with sewell l and sagitt al MPR. Radiat ion Dose Inform ation: CT Dose: CTDI volume is 17.9 mGy. Dose-l ength produc t is 149.1 mGy*cm COMPAR ANNIE: None FINDIN GS: Mandib le: Unrema rkable Maxill a: Unrema rkable Zygoma tic arches : Unrema rkable Nasal bone: Unrema rkable Orbits : Unrema rkable Sinuse s: Clear Facial swelli ng: Mild right fronta l soft-t issue swelli ng. IMPRES CORIN: 1. No acute facial fractu res. 2. Mild right fronta l soft-t issue swelli ng. Page 1 [facility] [address] [place] [address] Patien t Name: TONIA KNIGHT IA Access ion #: [id number] Sex: F : 1944 2 Dictat ed By: Barber Sinclair Attend ing Physic liyah: YOSELYN MALDONADO Ordergaston ng Physic liyah: ALFRED VALENTE Exam Date: 2024 12:13 PM Exam Name: CT MAXILL OFACIA L WO Admitt ing Diagno sis(es ): Radiat ion optimi zation : All CT scans at this facili ty use at least one of these dose optimi zation techni ques: automa dalia exposu re contro l mA and/or kV adjust ment per patien t size (inclu quyen target ed exams where dose is matche d to clinic al indica tion) or iterat alton recons tructi on. Electr onical ly Signed by: Barber Sinclair at 2024 12:44: 20 PM Page 2 [email or web address] [facility] ([facility]) [address] [place], [address], 09/04/2025 11:13:12 10/28/2010/27/2025 imagi ng/di agnos tic resul t No observ ation record ed. [facility] [address], [place], [address], 10/28/2025 09:28:59 Result Notes Documentation Provider Name and Address Organization Details Recorded Time Ct, Head, W/wo Contrast : [facility] [address] [place] [address] Patient Name: AN KNIGHT Sex: F : 1945 Dictated By: Remigio Diaz Attending Physician: AZUL VALENTE Ordering Physician: AZUL VALENTE Exam Date: 03/26/2025 12:10 PM Exam Name: CT HEAD WO Admitting Diagnosis(es): EXAM: CT HEAD WO HISTORY: Fall, initial encounter COMPARISON: CT HEAD WO on DOS: 03/25/22 TECHNIQUE: Axial images of the head were obtained and reformatted in coronal and sagittal planes. All CT scans at this medical facility are performed using dose modulation techniques as appropriate to a performed exam including the following: Automated exposure control was utilized; adjustment of the MA and/or KV according to patient size; and use of iterative reconstruction technique. CT Dose: CTDI volume is 46 mGy. Dose-length product is 11 L2 mGy*cm FINDINGS: There is no evidence of acute intracranial hemorrhage, mass, mass effect midline shift. There is no hydrocephalus or extra-axial fluid collection. Steinberg-white matter differentiation appears maintained. The visualized paranasal sinuses and mastoid air cells are clear. The calvarium is intact. IMPRESSION: 1. No acute intracranial process. HS:Y Page 1 [place] [address] Patient Name: AN KNIGHT Sex: F : 1945 Dictated By: Remigio Diaz Attending Physician: YOSELYN LIANG Ordering Physician: AZUL VALENTE Exam Date: 03/26/2025 12:10 PM Exam Name: CT HEAD WO Admitting Diagnosis(es): Page 2 MARGARITA Mota, [facility] [employer] [facility] 09/04/2025 11:13:12 Ct, Maxillofacial, W/o Contrast : [facility] [address] [place] [address] Patient Name: AN KNIGHT Sex: F : 1945 Dictated By: Sung Sinclair Attending Physician: AZUL VALENTE Ordering Physician: AZUL VALENTE Exam Date: 03/26/2025 12:13 PM Exam Name: CT MAXILLOFACIAL WO Admitting Diagnosis(es): HISTORY: Trauma, pain TECHNIQUE: Nonenhanced axial images through the facial bones with coronal and sagittal MPR. Radiation Dose Information: CT Dose: CTDI volume is 17.9 mGy. Dose-length product is 149.1 mGy*cm COMPARISON: None FINDINGS: Mandible: Unremarkable Maxilla: Unremarkable Zygomatic arches: Unremarkable Nasal bone: Unremarkable Orbits: Unremarkable Sinuses: Clear Facial swelling: Mild right frontal soft-tissue swelling. IMPRESSION: 1. No acute facial fractures. 2. Mild right frontal soft-tissue swelling. Page [address] [address] Patient Name: AN KNIGHT Sex: F : 1945 Dictated By: Sung Sinclair Attending Physician: YOSELYN LIANG Ordering Physician: AZUL VALENTE Exam Date: 03/26/2025 12:13 PM Exam Name: CT MAXILLOFACIAL WO Admitting Diagnosis(es): Radiation optimization: All CT scans at this facility use at least one of these dose optimization techniques: automated exposure control mA and/or kV adjustment per patient size (includes targeted exams where dose is matched to clinical indication) or iterative reconstruction. Page 2 Florence De Leon RN [facility], [place] - [facility] [employer] 09/04/2025 11:13:12 Problems Name Problem SNOMED Code Status Onset Date Resolution Date Notes Provider Name and Address Organization Details Recorded Time Dyslipidem ia 568147630 Active 2016 Not Available [facility] 3 06:54:45 Hypothyroi dism 80151822 Active 2016 Not Available [facility] 3 06:54:45 Essential hypertensi on 19655367 Active 2016 Not Available [facility] 3 06:54:45 Obstructiv e sleep apnea syndrome 26005785 Active 2016 Not Available [facility] 3 06:54:45 Body mass index 30+ - obesity 969708934 Active 2017 Not Available [facility] 3 06:54:45 Left Achilles tendinitis 1942160005774 02 Active 2019 Not Available [facility] 3 06:54:45 Gout 08825834 Active 2021 Not Available [facility] 3 06:54:45 Vertigo 615472392 Active 2021 Not Available [facility] 3 06:54:45 COVID-19 697869591 Active 2021 Not Available [facility] 3 06:54:45 Notes:Medical History: Verti go COVID infection 07/2021 Obesity with mild OSAHS, AHI = 9, 01/19/17, on CPAP 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 Procedures Surgical History Date Name Laterality Status Provider Name and Address Organization Details Recorded Time 11/20/19 20 Gstr rstcv px shrt chapito-en-y completed Not Available [facility] 01/18/2023 00:52:48 11/20/18 85 ligation of fallopian tube completed Not Available [facility] 01/18/2023 00:52:48 11/20/18 66 Cholecystectomy completed Not Available [facility] 01/18/2023 00:52:48 excision of uvula completed Not Available [facility] 01/18/2023 00:52:48 intravenous blood transfusion completed Not Available [facility] 01/18/2023 00:52:48 Imaging Results None recorded. Procedure Notes None recorded. Medical Equipment None Reported. Allergies Allergen ID Allergen Name Allergen Category Reaction Reaction Severity Criticality Documentation Date Start Date Code Code System Note Provider Name and Address Organization Details Recorded Time 2130 Substance with sulfonami de structure and antibacte rial mechanism of action (substanc e) medicatio n Not available Not available Not available 01/18/2023 49367 8003 SNOMED when she was a baby Not Available [facility] 3 01:22:36 2131 Product containin g penicilli n (product) medicatio n rash Not available Not available 01/18/2023 74632 8001 SNOMED Not Available [facility] 3 01:22:37 Medications Name Sig Start Date Stop Date Status Note LastModified by Organization Details LastModified Time losartan 50 mg tablet TAKE 1 TABLET BY MOUTH DAILY 06/14 completed changed to Amlodipi ne Not Available Not Available Not Available fluconazo le 100 mg tablet 04/26 completed Not Available Not Available Not Available buspirone 5 mg tablet TAKE 1 TABLET BY MOUTH TWICE A DAY active Not Available Not Available No t Available doxycycli ne hyclate 100 mg capsule Take 1 capsule twice a day by oral route for 10 days. 04/21 completed Not Available Not Available Not Available clindamyc in HCl 300 mg capsule TAKE 1 CAPSULE BY MOUTH EVERY 8 HOURS FOR 10 DAYS 01/25 completed Not Available Not Available Not Available atorvasta tin 10 mg tablet TAKE [...] Not Available amlodipin e 5 mg tablet TAKE 1 TABLET DAILY active Not Available Not Available No t Available allopurin ol 100 mg tablet TAKE 1 TABLET DAILY active Not Available Not Available No t Available tramadol 50 mg tablet TAKE 1 TABLET BY MOUTH TWICE A DAY NEEDED AT LEAST FOUR HOURS APART FROM TRAMADOL ER 03/12 completed Not Available Not Available Not Available [...] completed Not Available Not Available Not Available famotidin e 20 mg tablet TAKE 1 TABLET TWICE A DAY active Not Available Not Available No t Available tamsulosi n 0.4 mg capsule TAKE 1 CAPSULE BY MOUTH EVERY DAY 03/12 completed Not Available Not Available Not Available meclizine 25 mg tablet TAKE 1 TABLET 3 TIMES A DAYAS NEEDED FOR DIZZINES S active Not Available Not Available No t Available cephalexi n 500 mg capsule TK ONE C PO QID active Not Available Not Available No t Available pantopraz ole 40 mg tablet,de layed release TAKE 1 TABLET BY MOUTH IN THE MORNING 03/12 completed Not Available Not Available Not Available levothyro xine 125 mcg tablet 04/26 [...] HOURS BEFORE CRUISE. CHANGE EVERY 72 HOURS 03/12 completed Not Available Not Available Not Available methylpre dnisolone 4 mg tablets in a dose pack TAKE 6 TABLETS ON DAY 1 DIRECTED ON PACKAGE AND DECREASE BY 1 TAB EACH DAY FOR A TOTAL OF 6 DAYS 03/12 completed Not Available Not Available Not Available ondansetr on 4 mg disintegr ating tablet PLACE 1 TABLET ON THE TONGUE AND ALLOW TO DISSOLVE EVERY 8 HOURS NEEDED FOR NAUSEA OR VOMITING ; (THIS WILL REPLACE PREVIOUS PRESCRIP TION FOR TABLETS) . 03/12 completed Not Available Not Available Not Available [...] BY MOUTH EVERY DAY FOR 30 DAYS (03/01) active Not Available Not Available No t Available ondansetr on HCl (PF) 4 mg/2 mL injection solution injected 4 mg IM L buttock 06/[address] [facility]# [id number] Not Available Not Available Not Available [...] completed Not Available Not Available Not Available Eliquis 5 mg tablet TAKE 1 TABLET BY MOUTH EVERY 12 HOURS active Not Available Not Available No t Available Narcan 4 mg/actuat ion nasal spray UTD NEEDED NASALLY 1 DAY active Not Available Not Available No t Available Fluzone High-Dose 3880-2715 (PF) 180 mcg/0.5 mL intramusc ular syringe active Not Available Not Available Not Available Fluzone High-Dose 2689-8149 (PF) 180 mcg/0.5 mL intramusc ular syringe active Not Available Not Available Not Available Shingrix (PF) 50 mcg/0.5 mL intramusc ular suspensio n, kit 01/25 completed Not Available Not Available Not Available Fluzone High-Dose 5034-4859 (PF) 180 mcg/0.5 mL intramusc ular syringe [...] mcg x 4)/0.5mL IM syringe PHARMACY ADMINIST ERED 01/25 completed Not Available Not Available Not [...] Available Not Available Vitals Date Recorded Body temperature Heart rate Respiratory rate Provider Name and Address Organization Details Last Updated DateTime 03/11/2024 97.2 [degF] 78 /min 15 /min Eder Adamson MD [address] [facility], [facility] [address], [place], [address], [place] - [facility] [employer] 03/11/2024 10:40:29 Date Recorded Body height Body mass index (BMI) Body weight Heart rate Oxygen saturation Systolic And Diastolic Provider Name and Address Organization Details Last Updated DateTime 04/22/202 4 165.1 cm 32.8 kg/m2 58011.7 g 78 /min 95 % 122/70 mm[Hg] Deb Sams CMA [facility] [employer] [facility] 4 09:55:39 Date Recorded Body mass index (BMI) Body height Heart rate Respiratory rate Provider Name and Address Organization Details Last Updated DateTime 03/12/2025 33.1 kg/m2 165.1 cm 62 /min 15 /min Eder Adamson MD [address] [address], [place], [address], [facility] [employer] [facility] 03/12/2025 10:08:59 Date Recorded Body weight Body temperature Heart rate Oxygen saturation Systolic And Diastolic Provider Name and Address Organization Details Last Updated DateTime 5 93426.8 8 g 98 [degF] 62 /min 95 % 124/66 mm[Hg] Blanca Junior MA [facility] [employer] [facility] 5 09:57:44 Date Recorded Body height Body mass index (BMI) Body weight Body temperature Heart rate Systolic And Diastolic Provider Name and Address Organization Details Last Updated DateTime 3 165.1 cm 33.1 kg/m2 44098.8 8 g 97.9 [degF] 79 /min 126/70 mm[Hg] ENRIQUE Hanna [facility] [employer] [facility] 3 09:56:05 Date Recorded Body height Body mass index (BMI) Body weight Body temperature Heart rate Oxygen saturation Systolic And Diastolic Provider Name and Address Organization Details Last Updated DateTime 3 165.1 cm 33.3 kg/m2 57417.4 7 g 96.3 [degF] 66 /min 95 % 142/52 mm[Hg] Niki Chopra [facility] [employer] [facility] 3 14:38:21 Date Recorded Body height Body mass index (BMI) Body weight Body temperature Heart rate Systolic And Diastolic Provider Name and Address Organization Details Last Updated DateTime 3 165.1 cm 32.8 kg/m2 16737.7 g 97.6 [degF] 76 /min 134/64 mm[Hg] ENRIQUE Hanna [facility] [employer] [facility] 3 10:36:50 Social History Question Answer Notes LastModified by Organization Details LastModified Time Tobacco Smoking Status Former Smoker quit 1990 Not Available [facility] 01/18/2023 00:47:34 Do You Have An Advance Directive? Yes Copy In Chart MIGRATION.030 [id number] Information not available 01/18/2023 Are You Blind Or Do You Have Difficulty Seeing? No MIGRATION.030 172125 Information not available 01/18/2023 What Is Your Level Of Caffeine Consumption? Moderate MIGRATION.030 017250 Information not available 01/18/2023 How Much Tobacco Do You Chew? None MIGRATION.030 083353 Information not available 01/18/2023 In The 14 Days Before Symptom Onset, Have You Had Close Contact With A Laboratory-conf irmed COVID-19 While That Case Was Ill? No MIGRATION.030 500360 Information not available 01/18/2023 In The 14 Days Before Symptom Onset, Have You Had Close Contact With A Person Who Is Under Investigation For COVID-19 While That Person Was Ill? No MIGRATION.030 987904 Information not available 01/18/2023 Are You Deaf Or Do You Have Serious Difficulty Hearing? 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 REGULAR MIGRATION.030 345122 Information not available 01/18/2023 Which Illicit Or Recreational Drugs Have You Used? None MIGRATION.030 015557 Information not available 01/18/2023 What Is The Highest Grade Or Level Of School You Have Completed Or The Highest Degree You Have Received? [id number] MIGRATION.030 104331 Information not available 01/18/2023 Do You Have An Electrostatic Air Filter? No Information not available 03/12/2025 Have There Been Any Changes To Your Family Or Social Situation? No MIGRATION.030 399065 Information not available 01/18/2023 What Is The Fluoride Status Of Your Home? Unknown MIGRATION.030 076964 Information not available 01/18/2023 When Did You Quit Smoking? 15+yearssincelastc igarette MIGRATION.030 530947 Information not available 01/18/2023 Are There Any Guns Present In Your Home? No MIGRATION.030 909829 Information not available 01/18/2023 Do You Have A Humidifier? No Information not available 03/12/2025 Do You Use Insect Repellent Routinely? Yes MIGRATION.0301 455722 Information not available 01/18/2023 Where Do You Live? SingleLevelHouse With Basement MIGRATION.0301 663440 Information not available 01/18/2023 Do You Have A Medical Power Of Reservation Sales Agent? Yes MIGRATION.0301 496673 Information not available 01/18/2023 Do You Have Moisture Problems In Your Home? No Information not available 03/12/2025 What Was The Date Of Your Most Recent Tobacco Screening? 03/12/2025 Information not available 03/12/2025 Have You Ever Been Counseled For Unhealthy Alcohol Use? No MIGRATION.0301 599646 Information not available 01/18/2023 Do You Have Any Pets? No MIGRATION.0301 196229 Information not available 01/18/2023 What Is Your Relationship Status? MIGRATION.0301 006580 Information not available 01/18/2023 Do You Use Your Seat Belt Or Car Seat Routinely? Yes MIGRATION.0301 955394 Information not available 01/18/2023 Do You Have Smoke And Carbon Monoxide Detectors In Your Home? Yes MIGRATION.0301 871958 Information not available 01/18/2023 At What Age Did You Start Smoking Tobacco? 18 MIGRATION.0301 035867 Information not available 01/18/2023 Are You Passively Exposed To Smoke? No MIGRATION.0301 426792 Information not available 01/18/2023 Are There Any Smokers In Your House? No MIGRATION.0301 433243 Information not available 01/18/2023 How Much Tobacco Do You Smoke? No Formerly 1 Ppd MIGRATION.0301 796825 Information not available 01/18/2023 What Types Of Sporting Activities Do You Participate In? None MIGRATION.0301 073866 Information not available 01/18/2023 Do You Use Sunscreen Routinely? Yes MIGRATION.0301 711141 Information not available 01/18/2023 Has Tobacco Cessation Counseling Been Provided? No MIGRATION.0301 695166 Information not available 01/18/2023 Have You Recently Traveled Abroad? No MIGRATION.0301 869477 Information not available 01/18/2023 Do You Have Difficulty Walking Or Climbing Stairs? No MIGRATION.0301 515023 Information not available 01/18/2023 Do You Have Any Dietary Restrictions? No MIGRATION.0301 289692 Information not available 01/18/2023 Sex: Female Functional Status Question Answer Note LastModified by Organizat ion Details LastModified Time Do you or have you ever used smokeless tobacco? Never used smokeless tobacco MIGRATION.07217 78051 Information not available 01/18/2023 Have you been exposed to chemicals or toxins? not that aware of Information not available 03/12/2025 Do you have transportation difficulties? No MIGRATION.66407 15996 Information not available 01/18/2023 Are you able to care for yourself independently? Yes MIGRATION.08664 60251 Information not available 01/18/2023 Do you have difficulty dressing, bathing, grooming, or toileting? No MIGRATION.26899 46652 Information not available 01/18/2023 Do you or have you ever used e-cigarettes or vape? Never used electronic cigarettes MIGRATION.97789 16774 Information not available 01/18/2023 What is your exercise level? Occasional MIGRATION.27154 93871 Information not available 01/18/2023 Do you use any illicit or recreational drugs? No MIGRATION.65922 37774 Information not available 01/18/2023 Do you or have you ever used any other forms of tobacco or nicotine? No MIGRATION.81052 32849 Information not available 01/18/2023 What is your level of alcohol consumption? Occasional wine MIGRATION.73214 96192 Information not available 01/18/2023 Are you able to walk independently without assistance or assistive devices? YESWOREST MIGRATION.49842 48207 Information not available 01/18/2023 Do you have difficulty doing errands alone? 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 [id number] MIGRATION.[id number] 26 Information not available 01/18/2023 Do you have difficulty concentrating, remembering or making decisions? No MIGRATION.31717550 26 Information not available 01/18/2023 Family History Relationship Description Onset Age of this Age Resolved Age Notes LastModified by Organization Details LastModified Time Mother Myocardial infarction MIGRATION.046 [id number] Not available 01/18/2023 00:52:52 Mother Heart disease MIGRATION.114 [id number] Not available 01/18/2023 00:52:52 Mother Malignant neoplasm of breast [email or web address] Not available 02/19 09:46:08 Mother Malignant neoplasm of colon [email or web address] Not available 02/19 09:46:08 Father Myocardial infarction MIGRATION.168 [id number] Not available 01/18/2023 00:52:52 Father Heart disease MIGRATION.202 8467570 Not available 01/18/2023 00:52:52 Father Gout [email or web address] Not availabl e 03/12/2025 09:46:08 Son Hypertensive disorder MIGRATION.787 [id number] Not available 01/18/2023 00:52:52 Son Gout [email or web address] Not availabl e 03/12/2025 09:46:08 Medical History Condition Response NERVE DISEASE N [...] HAVE YOU BEEN HOSPITALIZED OR SEEN IN TH E ER IN THE PAST YEAR ? N ATHEROSCLEROSIS [...] influenza, unspecified formulation 2 completed Not Available [facility] 07/20/2023 06:54:46 COVID-19, mRNA, LNP-S, PF, 100 mcg/0.5mL dose or 50 mcg/0.25mL dose 1 completed Not Available [facility] 07/20/2023 06:54:46 Influenza, high-dose, quadrivalent, PF 0 completed Not Available [facility] 07/20/2023 06:54:46 Influenza, high-dose, trivalent, PF 9 completed Not Available [facility] 07/20/2023 06:54:46 zoster recombinant 8 completed Not Available [facility] 07/20/2023 06:54:46 zoster recombinant 8 completed Not Available [facility] 07/20/2023 06:54:46 Influenza, high-dose, trivalent, PF 8 completed Not Available [facility] 07/20/2023 06:54:46 Influenza, high-dose, trivalent, PF 7 completed Not Available [facility] 07/20/2023 06:54:46 Influenza, split virus, quadrivalent, preservative 7 completed Not Available [facility] 07/20/2023 06:54:46 influenza, unspecified formulation 6 completed Not Available [facility] 07/20/2023 06:54:46 COVID-19, mRNA, LNP-S, PF, 100 mcg/0.5mL dose or 50 mcg/0.25mL dose 1 completed Not Available [facility] 07/20/2023 06:54:46 COVID-19, mRNA, LNP-S, PF, 100 mcg/0.5mL dose or 50 mcg/0.25mL dose 1 completed Not Available [facility] 07/20/2023 06:54:46 Past Encounters Encounter ID Performer Location Encounter Start Date Encounter Closed Date Diagnosis/Indication Diagnosis SNOMED-CT Code Diagnosis ICD10 Code Diagnosis IMO Codes Diagnosis Note [id number] Eva Stapleton POWER NUT RUNNER OPERATOR- [facility] [address] [place] [address] 01/25/2021 00:00:00 01/25/2021 11:51:15 [id number] Azul Valente MD [facility] Internal Med [facility] [address] [place] [address] 1 02/24/2021 00:00:00 02/24/2021 23:46:06 [id number] Azul Valente MD [facility] Internal Med [facility] [address] [place] [address] 1 07/09/2021 00:00:00 07/10/2021 17:01:51 [id number] Azul Valente MD [facility] Internal Med [facility] [address] [place] [address] 1 12/31/2021 00:00:00 01/09/2022 20:40:38 [id number] [facility] [place] [address] [place] [address] 01/25/2022 00:00:00 01/25/2022 12:00:09 [id number] Azul Valente MD [facility] Internal Med [facility] [address] [place] [address] 1 03/30/2022 00:00:00 03/30/2022 21:57:[id number] [facility] Internal Med [facility] [address] [facility] [address] [address] 07/01/2022 00:00:00 07/10/2022 12:41:41 [id number] Eva Stapleton [facility] Pulmonolo gy [place] [address] [place] [address] 09/05/2022 00:00:00 09/05/2022 15:28:[id number] [facility] Internal Med [facility] [address] [facility] [address] [place] [address] 11/04/2022 00:00:00 11/04/2022 22:05:[id number] [facility] Internal Med [facility] [address] [facility] , [place] [address] 11/29/2022 00:00:00 12/04/2022 12:38:[id number] [facility] Podiatry [place] [address] [place] [address] 12/05/2022 00:00:00 12/18/2022 17:22:25 [id number] Eva Stapleton [facility] Pulmonolo gy [place] [address] [place] [address] 02/06/2023 09:54:15 02/06/2023 14:27:48 Obstructive sleep apnea syndrome 72864345 G47.33 Study 02/01/17 with optimal pressure 8 cm H2O.Origin al set up 03/17/17Ne w machine per recall was set up one month ago 2Dow nload today with 96.7% use greater than [...] minutesRTC in six months, PRN for concerns. [id number] Eva Stapleton, POWER NUT RUNNER OPERATOR-BC [facility] Pulmonolo [facility] [place] [address] [place] [address] 04/21/2023 11:29:09 04/21/2023 11:48:40 Obstructive sleep apnea syndrome 30553330 G47.33 Study 02/01/17 with optimal pressure 8 cm H2O.Origin al set up 03/17/17Ne w machine per recall was set up 2Dow nload today with 76.7% use greater than [...] .RTC in one year, PRN for concerns. [id number] Azul Valente MD [facility] Internal Med [facility] [address] [facility] [address] [address] 05/12/2023 10:56:33 05/12/2023 11:35:21 Hyperkalemia 66459556 E87.5 Dyslipidemia 233595075 E 78.5 Hypothyroidism 33730890 E03.9 Essential hypertension 39202121 I10 Gout 60671794 M10.[id number] [facility] Internal Med [facility] [address] [facility] [address] [place] [address] 06/14/2023 09:48:40 06/14/2023 10:26:43 Essential hypertension 49302745 I10 [id number] Eva Stapleton, [facility] Pulmonolo gy [place] [address] [place] [address] 07/12/2023 14:17:30 07/12/2023 14:53:45 Obstructive sleep apnea syndrome 35766245 G47.33 Study 02/01/17 with optimal pressure 8 [...] as required by insurance, PRN for concerns. [id number] Azul Valente MD [facility] Internal Med [place] [address] [facility] [place] [address] [place] [address] 07/19/2023 09:43:18 07/19/2023 10:18:02 Dyslipidemia 024813098 E78.5 Essential hypertension 68223533 I10 Screening - NAD 77269341 3 Z13.9 Hyperkalemia 61192362 E8 7.5 [id number] Eva Stapleton, POWER NUT RUNNER OPERATOR-[facility] Pulmonolo gy [place] [address] [place] [address] 09/11/2023 14:18:08 09/11/2023 15:27:13 Obstructive sleep apnea syndrome 12761471 G47.33 Study 02/01/17 with optimal pressure 8 [...] .She should follow up in 6 months. [id number] Azul Valente MD [facility] Internal Med [facility] [address] [place] [address], [place] [address] 11/08/2023 10:25:12 11/08/2023 11:23:45 Dyslipidemia 107898009 E78.5 Hypothyroidism 76035478 E03.9 Essential hypertension 60054315 I10 Gout 21419975 M10.9 [id number] Eder Adamson MD [address] [address] 03/11/2024 09:46:32 03/12/2024 08:41:46 Obstructive sleep apnea syndrome 81413286 G47.33 [id number] Eder Adamson MD [address] [address] 0 03/12/2025 09:44:02 03/13/2025 14:18:04 Obstructive sleep apnea syndrome 34173382 G47.33 Health Concerns Section Related Observation LastModified by Organization Detai ls LastModified Time None Recorded Concern Status LastModified by Organization Details LastModified Time None Recorded Advance Directives Directive Y: copy in chart Payers Insurance Date Sequence Insurance Name Policy Number Policy Garcia Covered Member ID Garcia Member ID Guarantor Name 03/12/2025 1 [employer] (MEDICARE REPLACEMENT/ ADVANTAGE - PPO) [id number] An Knight [id number] An Knight Notes Date Note Type Note Provider Name and Address Organization Details Recorded Time 07/19/2023 text/html Dyslipidemia needs to follow low-fat diet hypertension no headache no dizziness electrolyte abnormalities needs blood checked Azul Valente MD [address] [facility], [address], [place], [address], [facility] [employer] 07/23/2023 16:38:09 09/11/2023 text/html Ms Knight presents today to follow up on ZAIRA and PAP machine.New machine has been set up and she tells me that it is working well/Sleep is restfulDenies morning headaches and xerostomia.No GERD or sinus congestion.Does not wake due to mask leak or discomfortFatigue is improved, energy levels are good. Eva Stapleton, POWER NUT RUNNER OPERATOR-BC [address], [place], [address], [facility] 09/11/2023 18:56:15 11/08/2023 text/html Dyslipidemia needs to follow low-fat diet hypertension no headache no dizziness electrolyte abnormalities needs blood checked impression feeling pretty good Azul Valente MD [address], [address], [place], [address], [facility] 11/08/2023 13:36:10 03/11/2024 text/html Primary care/Referring provider: Azul Valente MD CC: When I travel, I don'y bring my CPAP unit with me. During the [facility] home sleep study on 01/19/17, AHI = 9. During the [facility] titration sleep study on 02/01/17, sleep onset [...] slight chance of dozing. Eder Adamson MD [address] [place] [address], [address], [place] - [facility] [employer] 03/11/2024 10:47:55 03/12/2025 text/html Primary care/Referring provider: Azul Valente MD CC: When I travel, I don't bring my CPAP unit with me. During the [facility] home sleep study on 01/19/17, AHI = 9. During the [facility] titration sleep study on 02/01/17, sleep onset = 24 minutes, REM onset = 86 minutes, ResMed medium AirFit N10 nasal mask was applied @ 8 cmH2O, PLMI = 1. At home since 03/11/24, the patient uses a ResMed AirSense 11 autoset unit with heated humidification. The patient does not need the ramp to start low and go up slowly on the pressure anymore. There is no xerostomia in a.m. There is no hose/mask condensation with water.The patient wears a [employer]Med small AirFit F20 [...] up without an alarm. Snoring: moderate, since .Snorting: noChoking: noCoughing: noGasping: noGagging: noSighing: noWitnessed apnea: yesTwitching or jerking of leg(s), arm(s), body, head: noTeeth grinding: noTeeth clenching: noSleeptalking: noSleepwalking: noSleep crying: noBedwetting: noTongue/lip/gum/cheek biting: noSleeping with open mouth: yesSleep paralysis: noHypnagogic hallucinations: noHypnopompic hallucinations: noVivid dreams: noDifficulty with sleep onset: noDifficulty with sleep maintenance: yesSleep interruptions: nocturia x 2Patient wakes up with: fatigueDaytime cataplexy: noMorning hypersomnolence: noAfternoon hypersomnolence: yesCaffeine sources in diet: tea 2 glasses per day, soda 1/3 fountain drink per day, chocolate 1/2 candy per day Associated medical and psychiatric conditions:Congestive heart failure: noCoronary artery disease: noMyocardial infarction: noHypertension: yesStroke: noBronchial asthma: noChronic obstructive pulmonary disease: noDepression: noBipolar disorder: noAnxiety: noPanic disorder: noPosttraumatic stress disorder: noAttention deficit and hyperactivity disorder: noObsessive Compulsive disorder: noSchizophrenia: noSchizoaffective disorder: noPersonality disorder: noChronic analgesic use: yes tramadolChronic sedative/hypnotic use: no EPWORTH SLEEPINESS SCALE (ESS) CHANCE OF DOZING SCORE0 = would never doze1 = slight chance of dozing2 = moderate chance of dozing3 = high chance of dozing SITUATION AND CHANCE OF DOZINGSitting and reading - 0Watching television - 1Sitting inactive in a public place (e.g. a theater or meeting) - 0As a passenger in a car for an hour without a break - 1Lying down to rest in the afternoon when circumstances permit - 2Sitting and talking to someone - 0Sitting quietly after lunch without alcohol - 0In a car, while stopped for a few minutes in the traffic - 0TOTAL SCORE 4Subjectively, patient has a slight chance of dozing. Eder Adamson MD [address] [facility], [address] [address], [place], [address], [facility] 03/12/2025 10:10:20 OBGyn Episode No OBEpisode recorded.
[2025-11-19 17:36] VITALS: BP 143/61; PULSE 90; RESP 16; O2SAT 96
== END 2025-11-19 17:48 | disposition home or self-care (01) ==
PROVIDERS: Emergency Provider Physician Assistant; PCP Internal Medicine
DX: S80.01XA Contusion of right knee, initial encounter (principal); S86.911A Strain of unspecified muscle(s) and tendon(s) at lower leg level, right leg, initial encounter; W01.0XXA Fall on same level from slipping, tripping and stumbling without subsequent striking against object, initial encounter; K21.9 Gastro-esophageal reflux disease without esophagitis; H81.09 Meniere's disease, unspecified ear; E78.2 Mixed hyperlipidemia; E03.9 Hypothyroidism, unspecified; I10 Essential (primary) hypertension; Z87.891 Personal history of nicotine dependence
CPT/HCPCS: 73562; 73590; 99283; A9270